=== PATIENT | female | born 2000 | race Hispanic/Latino ===

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

== ENCOUNTER 2019-06-11 21:00 | Inpatient (IN) | payer MEDICAID ==
--- NOTE | 2019-06-11 21:07 | Event Note ---
ED Screening Note Date of service: 06/11/19 Time: 21:04 ED Screening Note: This is a 18 y.o. F. that presents to the ER with nausea and weakness for 2 days. Patient friend is here with her because she is AMS. Patient friend reports several tremors today that appeared to be seizures. States patient broke her tooth with the one prior to arrival. He is unsure of patient PMH. This initial assessment/diagnostic orders/clinical plan/treatment(s) is/are subject to change based on patients health status, clinical progression and re- assessment by fellow clinical providers in the ED. Further treatment and workup at subsequent clinical providers discretion. Patient/guardian urged not to elope from the ED as their condition may be serious if not clinically assessed and managed. Initial orders include: Labs and CT of head/brain
[2019-06-11] MEDS ORDERED: SODIUM CHLORIDE 0.9% 1000 ML 1,000 ML IV ONE (21:21)
[2019-06-11] MEDS ORDERED: LORazepam 2 MG/ML VIAL ONE (21:25)
[2019-06-11] MEDS ORDERED: LORazepam 2 MG/ML VIAL IV ONE (21:27)
[2019-06-11] MEDS ORDERED: levETIRAcetam 1000 MG/NS 0.75% 1,000 MG/100 ML BAG IV ONE (21:28)
--- NOTE | 2019-06-11 21:36 | Emergency Department Report ---
<LEIGH NIEVES - Last Filed: 06/12/19 02:13> ED General Adult HPI - General Chief complaint: Altered Mental Status Stated complaint: VOMITING, SHAKING Time Seen by Provider: 06/11/19 21:03 - Related Data Previous Rx's Medication Instructions Recorded Last Taken Type Dicyclomine [Bentyl] 10 mg PO BID PRN #14 capsule 09/20/18 Unknown Rx Ondansetron [Zofran ODT TAB] 4 mg PO Q8HR #15 tab.rapdis 11/13/18 Unknown Rx raNITIdine HCl [Zantac] 150 mg PO BID #14 tablet 11/13/18 Unknown Rx Metoclopramide [Reglan] 10 mg PO QID PRN #30 tablet 06/11/19 Unknown Rx Promethazine [Phenergan SUPPOS] 50 mg MD Q6H PRN #15 supp.rect 06/11/19 Unknown Rx levETIRAcetam [Keppra TAB] 500 mg PO BID #60 tablet 06/11/19 Unknown Rx Nitrofurantoin [place]/M-Cryst 100 mg PO Q12HR #13 capsule 06/12/19 Unknown Rx [Macrobid CAP] Allergies Allergy/AdvReac Type Severity Reaction Status Date / Time No Known Allergies Allergy Unverified 01/27/16 14:12 ED Past Medical Hx - Medications Home Medications: Home Medications Medication Instructions Recorded Confirmed Last Taken Type Dicyclomine [Bentyl] 10 mg PO BID PRN #14 capsule 09/20/18 Unknown Rx Ondansetron [Zofran ODT TAB] 4 mg PO Q8HR #15 tab.rapdis 11/13/18 Unknown Rx raNITIdine HCl [Zantac] 150 mg PO BID #14 tablet 11/13/18 Unknown Rx Metoclopramide [Reglan] 10 mg PO QID PRN #30 tablet 06/11/19 Unknown Rx Promethazine [Phenergan SUPPOS] 50 mg MD Q6H PRN #15 supp.rect 06/11/19 Unknown Rx levETIRAcetam [Keppra TAB] 500 mg PO BID #60 tablet 06/11/19 Unknown Rx Nitrofurantoin [place]/M-Cryst 100 mg PO Q12HR #13 capsule 06/12/19 Unknown Rx [Macrobid CAP] ED Medical Decision Making - Lab Data Result diagrams: 06/12/19 01:54 06/11/19 22:55 - Radiology Data Radiology results: report reviewed CT head/brain wo con INDICATION / CLINICAL INFORMATION: 18 years Female; AMS. TECHNIQUE: Routine CT head without contrast. All CT scans at this location are performed using CT dose reduction for ALARA by means of automated exposure control. COMPARISON: 09/29/2018 FINDINGS: BRAIN / INTRACRANIAL CONTENTS: No acute hemorrhage, mass effect, midline shift, hydrocephalus, or acute, large territorial infarct. No chronic infarct or atrophy appreciated. No significant white matter abnormality. CRANIOCERVICAL JUNCTION: No significant abnormality. ORBITS: No significant abnormality of visualized orbits. SINUSES / MASTOIDS: Minimal mucosal thickening seen in the ethmoids and right frontal sinus. ADDITIONAL FINDINGS: None. IMPRESSION: 1. No focal mass, hemorrhage, hydrocephalus, or acute, large territorial infarct. CT ABDOMEN AND PELVIS WITHOUT CONTRAST INDICATION: Generalized abdominal pain, nausea and vomiting. TECHNICAL: Multiple axial CT images of the abdomen and pelvis were acquired without intravenous contrast. Sagittal and coronal reforma ts were obtained. All CTs at this facility utilize dose reduction techniques including automated exposure control, iterative reconstruction and weight based dosing when appropriate to reduce patient radiation dose to as low as reasonable achievable. COMPARISON: CT of the abdomen and pelvis, 11/13/2018 FINDINGS: Limited imaging of the bilateral lung bases demonstrates no evidence of acute abnormality. Abdomen: The liver, spleen, pancreas, bilateral adrenal glands and bilateral kidneys show no evidence of acute abnormality. There is moderate distention of the stomach with food contents. There is no evidence of bowel obstruction or free fluid. The appendix is visualized and appears normal. Pelvis : No free fluid is seen within the pelvis. An IUD is present. There is a 2.8 cm right adnexal cyst. The urinary bladder appears normal. Bones and Soft Tissues: Evaluation of bony structures demonstrates no evidence of acute bony abnormality. Soft tissue structures appear grossly normal. IMPRESSION: 1. No evidence of acute inflammatory process within the abdomen or pelvis. 2. Additional findings as above. - Medical Decision Making Despite aggressive IV hydration and repeat Ativan doses patient remains tachycardic in the ED also having intermittent dry heaves. Due to persistent tachycardia, leukocytosis, and UTI as well as continued nausea patient will be admitted to the hospital for further ED treatment. IV doses of zofran ordered. UDS ordered to rule out other drug usage besides marijuana. Hospitalist was informed of admission. I ED Disposition Clinical Impression: Marijuana dependence, Cyclic vomiting syndrome, Tachycardia Nausea & vomiting Qualifiers: Vomiting type: unspecified Vomiting Intractability: unspecified Qualified Code(s): R11.2 - Nausea with vomiting, unspecified Abdominal pain Qualifiers: Abdominal location: unspecified location Qualified Code(s): R10.9 - Unspecified abdominal pain Convulsion Qualifiers: Convulsion type: unspecified Qualified Code(s): R56.9 - Unspecified convulsions Disposition: DC-07 LEFT AGAINST MED ADVICE Is pt being admited?: Yes Condition: Undetermined Time of Disposition: 02:15 (Dr Hooper/hosp) <JOANNE ALVES - Last Filed: 06/12/19 18:09> ED General Adult HPI - General Source: patient, RN notes reviewed, old records reviewed Mode of arrival: Ambulatory Limitations: No Limitations - History of Present Illness Initial comments: This is a 18-year-old female. I have evaluated this patient in the past. Her past medical history includes cannabis use, cyclic vomiting syndrome versus cannabinoid hyperemesis syndrome. I saw the patient in October 2018 with recurrent abdominal pain, nausea and vomiting Today, the patient presents with her typical constellation of symptoms, including diffuse abdominal cramping, nausea vomiting, intervals of activity. The patient states that she she is not sure if she is . She admits to chronic cannabis consumption. She lives by herself, and apparently had possible convulsive event today, where she chipped her tooth. There is no midline neck pain. She does not indicate that she is having abdominal pain at this time. She indicates her symptoms are intermittent, did not radiate anywhere, and she is not sure if they have exacerbating or relieving factors. At the moment, she is not motivated to discontinue cannabis consumption. -: week(s), month(s) Location: head, abdomen Quality: other Consistency: other Improves with: other Worsens with: other ED Review of Systems ROS: Stated complaint: VOMITING, SHAKING Other details as noted in HPI Constitutional: malaise Eyes: denies: eye discharge ENT: denies: congestion Respiratory: denies: other Cardiovascular: denies: edema Gastrointestinal: abdominal pain, nausea, vomiting Musculoskeletal: myalgia Neurological: weakness Psychiatric: anxiety ED Past Medical Hx - Past Medical History Hx Seizures: Yes (patient states she has nonepileptic seizures) Hx Asthma: Yes - Social History Smoking Status: Never Smoker Substance Use Type: None ED Physical Exam - General Limitations: Other (patient initially not responsive, may have had a convulsive event. Shortly thereafter, awake, alert, oriented, and sober.) General appearance: alert, in no apparent distress - Head Head exam: Present: atraumatic, normocephalic - Eye Eye exam: Present: normal appearance, PERRL, EOMI, other (visual acuity intact to finger counting, color perception, reading at a close distance). Absent: nystagmus - ENT ENT exam: Present: normal exam, mucous membranes moist, normal external ear exam - Neck Neck exam: Present: normal inspection, full ROM. Absent: tenderness, meningismus - Respiratory Respiratory exam: Present: decreased breath sounds. Absent: respiratory distr ess, wheezes, rales, rhonchi, stridor - Cardiovascular Cardiovascular Exam: Present: normal rhythm, tachycardia, normal heart sounds. Absent: systolic murmur, diastolic murmur, rubs, gallop - GI/Abdominal GI/Abdominal exam: Present: soft. Absent: distended, tenderness, guarding, rebound, rigid, pulsatile mass - Extremities Exam Extremities exam: Present: normal inspection, full ROM, other (2+ pulses noted in the bilateral upper, lower extremities. There is no long bone tenderness. Musculoskeletal compartments are soft. The pelvis is stable.). Absent: pedal edema, calf tenderness - Back Exam Back exam: Present: normal inspection, full ROM. Absent: tenderness, CVA tenderness (R), CVA tenderness (L), paraspinal tenderness, vertebral tenderness - Neurological Exam Neurological exam: Present: alert, oriented X3, other (there is no facial droop. The tongue is midline. Extraocular movements are intact bilaterally. Patient speaking in full complete sentences. Shoulder shrug is intact bilaterally. Hearing is grossly intact bilaterally. Visual acuity intact to finger counting and color perception at a close distance. 5/5 strength 4 extremities. Sensation intact to light touch in 4 extremities.). Absent: motor sensory deficit - Psychiatric Psychiatric exam: Present: anxious - Skin Skin exam: Present: warm, dry, intact, normal color. Absent: rash ED Course Vital Signs 06/11/19 06/11/19 06/11/19 21:09 22:39 22:40 Temperature 98.2 F Pulse Rate 111 H 84 97 H Respiratory 20 33 H 26 H Rate Blood Pressure 164/118 85/38 O2 Sat by Pulse 100 94 92 Oximetry 06/11/19 06/11/19 06/11/19 22:42 22:44 22:46 Temperature Pulse Rate 95 H 95 H 94 H Respiratory 16 17 17 Rate Blood Pressure 85/38 91/41 91/41 O2 Sat by Pulse 95 94 93 Oximetry 06/11/19 06/11/19 06/11/19 22:48 22:50 22:52 Temperature Pulse Rate 96 H 97 H 97 H Respiratory 17 17 17 Rate Blood Pressure 91/41 91/41 91/41 O2 Sat by Pulse 95 94 95 Oximetry 06/11/19 06/11/19 06/11/19 22:54 22:56 22:58 Temperature Pulse Rate 98 H 107 H 109 H Respiratory 19 16 30 H Rate Blood Pressure 91/41 91/41 91/41 O2 Sat by Pulse 96 94 95 Oximetry 06/11/19 06/11/19 06/11/19 23:00 23:02 23:04 Temperature Pulse Rate 109 H 106 H 103 H Respiratory 21 20 24 Rate Blood Pressure 91/41 91/41 148/102 O2 Sat by Pulse 100 100 100 Oximetry 06/11/19 06/11/19 06/11/19 23:06 23:08 23:10 Temperature Pulse Rate 107 H 117 H 124 H Respiratory 18 20 27 H Rate Blood Pressure 85/38 85/38 85/38 O2 Sat by Pulse 100 100 94 Oximetry 06/11/19 06/11/19 06/11/19 23:12 23:14 23:16 Temperature Pulse Rate 111 H 105 H 126 H Respiratory 16 28 H 26 H Rate Blood Pressure 85/38 85/38 176/104 O2 Sat by Pulse 96 94 98 Oximetry 06/11/19 06/11/19 06/12/19 23:52 23:54 00:00 Temperature Pulse Rate 112 H 113 H 106 H Respiratory 22 22 Rate Blood Pressure 176/104 176/104 149/108 O2 Sat by Pulse 96 96 Oximetry 06/12/19 06/12/19 06/12/19 00:15 00:30 00:45 Temperature Pulse Rate 119 H 105 H 118 H Respiratory 14 15 25 H Rate Blood Pressure 156/114 173/125 166/123 O2 Sat by Pulse 98 99 95 Oximetry 06/12/19 06/12/19 06/12/19 01:00 01:16 01:30 Temperature Pulse Rate 108 H 113 H 113 H Respiratory 21 24 22 Rate Blood Pressure 138/101 138/101 172/127 O2 Sat by Pulse 97 83 L Oximetry 06/12/19 06/12/19 06/12/19 01:45 02:00 02:15 Temperature Pulse Rate 117 H 108 H 108 H Respiratory 22 23 22 Rate Blood Pressure 133/80 173/126 155/111 O2 Sat by Pulse Oximetry 06/12/19 06/12/19 06/12/19 02:27 02:30 02:45 Temperature 99.4 F Pulse Rate 111 H 105 H 105 H Respiratory 20 20 15 Rate Blood Pressure 151/106 108/58 O2 Sat by Pulse 98 99 94 Oximetry 06/12/19 06/12/19 06/12/19 03:00 03:15 03:30 Temperature Pulse Rate 107 H 104 H 108 H Respiratory 17 17 16 Rate Blood Pressure 115/62 119/65 118/59 O2 Sat by Pulse 93 96 96 Oximetry 06/12/19 06/12/19 03:45 04:00 Temperature Pulse Rate 108 H 107 H Respiratory 19 18 Rate Blood Pressure 113/57 123/57 O2 Sat by Pulse 96 94 Oximetry - Reevaluation(s) Reevaluation #1: 06/11/19 22:00 Differential diagnosis, including not limited to: Seizure, pseudoseizure, dehydration, intracranial lesion, electrolyte derangement, stress reaction, cannabinoid hyperemesis syndrome, cyclic vomiting syndrome Assessment and plan: 18-year-old female with recurrent presentation of abdominal pain, nausea and vomiting and convulsive event. She is tachycardic and hyper tensive at this time. She states she has not delivered or given within the past 6 weeks. This is similar to patient's prior presentations. Leukocytosis is reviewed and appreciated, this is likely a stress reaction. Anion gap likely secondary to convulsive event, nausea and vomiting, hyperv entilation. We will treat her symptoms, give IV fluids, Ativan, obtain CT scan brain, CT scan abdomen pelvis, and reassess. I again counseled the patient to discontinue cannabis consumption. Reevaluation #2: 06/11/19 23:33 No seizures noted. Patient quite anxious. Required multiple doses of Ativan. CT scan brain, abdomen pelvis pending at this time. Repeat basic metabolic panel pending at this time. care will be transferred to Dr Kieran Nieves to follow up on ct head, abd pelvis, repeat bmp and final disposition Reevaluation #3: 06/11/19 23:56 CT scan interpretations pending at this time. Tachycardia improving, rate 10 6 bpm. Repeat basic metabolic panel is reviewed and appreciated. Anion gap is improved, CO2 is improved. However, CO2 not normalize, patient quite anxious and tachypneic, decreased serum CO2 likely secondary to tachypnea secondary to anxiety required additional ativan 06/12/19 00:08 will give additional fluids, ativan for anxiety every time janeth evaluted the patient she has been hypertensive bp appreciated in the chart suspect error ED Medical Decision Making - Lab Data Result diagrams: 06/12/19 05:15 06/12/19 05:15 Vital Signs 06/11/19 21:09 Temperature 98.2 F Pulse Rate 111 H Respiratory 20 Rate Blood Pressure 164/118 O2 Sat by Pulse 100 Oximetry Lab Results 06/11/19 06/11/19 06/11/19 Range/Units 21:27 21:27 21:30 WBC 21.8 H (4.5-11.0) K/mm3 RBC 4.90 (3.65-5.03) M/mm3 Hgb 13.9 (10.1-14.3) gm/dl Hct 42.7 (30.3-42.9) % MCV 87 (79-97) fl MCH 28 (28-32) pg MCHC 33 (30-34) % RDW 14.6 (13.2-15.2) % Plt Count 358 (140-440) K/mm3 PT 13.5 (12.2-14.9) Sec. INR 1.04 (0.87-1.13) APTT 22.2 L (24.2-36.6) Sec. Sodium 132 L (137-145) mmol/L Potassium 3.7 (3.6-5.0) mmol/L Chloride 93.5 L (98-107) mmol/L Carbon Dioxide 14 L (22-30) mmol/L Anion Gap 28 mmol/L BUN 10 (7-17) mg/dL Creatinine 0.8 (0.7-1.2) mg/dL Estimated GFR > 60 ml/min BUN/Creatinine Ratio 13 % Glucose 132 H (65-100) mg/dL POC Glucose (70-105) Calcium 10.0 (8.4-10.2) mg/dL Total Bilirubin 0.30 (0.1-1.2) mg/dL AST 41 H (5-40) units/L ALT 29 (7-56) units/L Alkaline Phosphatase 84 (35-129) units/L Total Protein 8.5 H (6.3-8.2) g/dL Albumin 4.5 (3.9-5) g/dL Albumin/Globulin Ratio 1.1 % 06/11/19 Range/Units 21:38 WBC (4.5-11.0) K/mm3 RBC (3.65-5.03) M/mm3 Hgb (10.1-14.3) gm/dl Hct (30.3-42.9) % MCV (79-97) fl MCH (28-32) pg MCHC (30-34) % RDW (13.2-15.2) % Plt Count (140-440) K/mm3 PT (12.2-14.9) Sec. INR (0.87-1.13) APTT (24.2-36.6) Sec. Sodium (137-145) mmol/L Potassium (3.6-5.0) mmol/L Chloride (98-107) mmol/L Carbon Dioxide (22-30) mmol/L Anion Gap mmol/L BUN (7-17) mg/dL Creatinine (0.7-1.2) mg/dL Estimated GFR ml/min BUN/Creatinine Ratio % Glucose (65-100) mg/dL POC Glucose 121 H (70-105) Calcium (8.4-10.2) mg/dL Total Bilirubin (0.1-1.2) mg/dL AST (5-40) units/L ALT (7-56) units/L Alkaline Phosphatase (35-129) units/L Total Protein (6.3-8.2) g/dL Albumin (3.9-5) g/dL Albumin/Globulin Ratio % - EKG Data -: EKG Interpreted by Ga - EKG Data 06/11/19 22:02 The EKG today shows a sinus tachycardia, high left ventricular voltage, motion artifact, normal axis, rate 103 bpm, the EKG is not consistent with ST elevation myocardial infarction. It is unchanged from prior EKG from October 2018. - Radiology Data Radiology results: pending Critical care attestation.: If time is entered above; I have spent that time in minutes in the direct care of this critically ill patient, excluding procedure time. ED Disposition Does the pt Need Aspirin: No
[2019-06-11 21:38] LABS: Hematocrit 42.7 % (30.3-42.9); Hemoglobin 13.9 gm/dl (10.1-14.3); Mean Corpuscular HGB Conc 33 % (30-34); Mean Corpuscular Volume 87 fl (79-97); Platelet Count 358 K/mm3 (140-440); Red Cell Distribution Width 14.6 % (13.2-15.2)
[2019-06-11 21:52] LABS: Alanine Aminotransferase 29 units/L (7-56); Albumin 4.5 g/dL (3.9-5); BUN/Creatinine Ratio 13; Blood Urea Nitrogen 10 mg/dL (7-17); Hemolysis Index 21
[2019-06-11] MEDS ORDERED: LORazepam 2 MG/ML VIAL IV STA (21:55)
[2019-06-11 22:00] LABS: INR 1.04 (0.87-1.13)
[2019-06-11] MEDS ORDERED: D5W/0.45% NACL 1,000 ML IV SCH (22:00)
[2019-06-11 22:01] LABS: Partial Thromboplastin Time 22.2 Sec. (24.2-36.6)
[2019-06-11 22:48] LABS: Bacteria,Urine 1+ /HPF (Negative); Bilirubin,Urine NEG (Negative); Blood,Urine NEG (Negative); Color,Urine Amber (Yellow); Mucus,Urine 2+ /HPF; Urobilinogen,Urine < 2.0 mg/dL (<2.0)
[2019-06-11 22:49] LABS: HCG Qualitative,Urine Negative (Negative)
[2019-06-11 23:42] LABS: BUN/Creatinine Ratio 13; Blood Urea Nitrogen 9 mg/dL (7-17); Calcium 8.1 mg/dL (8.4-10.2); Hemolysis Index 43
--- NOTE | 2019-06-12 00:03 | Cat Scan Report ---
CT head/brain wo con INDICATION / CLINICAL INFORMATION: 18 years Female; AMS. TECHNIQUE: Routine CT head without contrast. All CT scans at this location are performed using CT dos e reduction for ALARA by means of automated exposure control. COMPARISON: 09/29/2018 FINDINGS: BRAIN / INTRACRANIAL CONTENTS: No acute hemorrhage, mass effect, midline shift, hydrocephalus, or acu te, large territorial infarct. No chronic infarct or atrophy appreciated. No significant white matter abnormality. CRANIOCERVICAL JUNCTION: No significant abnormality. ORBITS: No significant abnormality of visualized orbits. SINUSES / MASTOIDS: Minimal mucosal thickening seen in the ethmoids and right frontal sinus. ADDITIONAL FINDINGS: None. IMPRESSION: 1. No focal mass, hemorrhage, hydrocephalus, or acute, large territorial infarct. Signer Name: Timoteo Chang MD, III Signed: 06/11/2019 11:58 PM Workstation Name: [id number]
[2019-06-12] MEDS ORDERED: NITROFURANTOIN MONOHYD/M-CRYST 100 MG CAP PO ONE (00:06)
[2019-06-12] MEDS ORDERED: LORazepam 2 MG/ML VIAL IV STA (00:06)
[2019-06-12] MEDS ORDERED: SODIUM CHLORIDE 0.9% 1000 ML 2,000 ML IV ONE (00:06)
--- NOTE | 2019-06-12 00:08 | Cat Scan Report ---
CT ABDOMEN AND PELVIS WITHOUT CONTRAST INDICATION: Generalized abdominal pain, nausea and vomiting. TECHNICAL: Multiple axial CT images of the abdomen and pelvis were acquired without intravenous contr ast. Sagittal and coronal reformats were obtained. All CTs at this facility utilize dose reduction techniques including automated exposure control, iterative reconstruction and weight based dosing whe n appropriate to reduce patient radiation dose to as low as reasonable achievable. COMPARISON: CT of the abdomen and pelvis, 11/13/2018 FINDINGS: Limited imaging of the bilateral lung bases demonstrates no evidence of acute abnormality. Abdomen: The liver, spleen, pancreas, bilateral adrenal glands and bilateral kidneys show no evidence of acute abnormality. There is moderate distention of the stomach with food contents. There is no ev idence of bowel obstruction or free fluid. The appendix is visualized and appears normal. Pelvis: No free fluid is seen within the pelvis. An IUD is present. There is a 2.8 cm right adnexal c yst. The urinary bladder appears normal. Bones and Soft Tissues: Evaluation of bony structures demonstrates no evidence of acute bony abnorma lity. Soft tissue structures appear grossly normal. IMPRESSION: 1. No evidence of acute inflammatory process within the abdomen or pelvis. 2. Additional findings as above. Signer Name: Phylicia Nation MD Signed: 06/12/2019 12:03 AM Workstation Name: [id number]
[2019-06-12 02:07] LABS: Hematocrit 39.6 % (30.3-42.9); Mean Corpuscular HGB Conc 33 % (30-34); Mean Corpuscular Volume 86 fl (79-97); Platelet Count 314 K/mm3 (140-440); Red Blood Count 4.63 M/mm3 (3.65-5.03); Red Cell Distribution Width 14.3 % (13.2-15.2)
[2019-06-12] MEDS ORDERED: ONDANSETRON 4 MG/2 ML INJ IV ONE (02:14)
[2019-06-12 02:30] LABS: BUN/Creatinine Ratio 12; Blood Urea Nitrogen 7 mg/dL (7-17); Calcium 8.5 mg/dL (8.4-10.2); Hemolysis Index 25
[2019-06-12] MEDS ORDERED: ACETAMINOPHEN 325 MG TAB PO PRN (02:54)
[2019-06-12] MEDS ORDERED: ONDANSETRON 4 MG/2 ML INJ IV PRN (02:54)
[2019-06-12] MEDS ORDERED: METOCLOPRAMIDE 10 MG/2 ML INJ IV PRN (02:54)
--- NOTE | 2019-06-12 02:58 | History and Physical Report ---
History of Present Illness Date of examination: 06/12/19 History of present illness: Patient is sedated, status post IV Ativan in the emergency room, unable to obtain a history. This is a 18-year-old woman was brought to the emergency room for abdominal pain, nausea and vomiting. History is per the chart, review of sy stems is unobtainable. Patient has similar presentation in September PAST MEDICAL HISTORY asthma PAST SURGICAL HISTORY: Unknown SOCIAL HISTORY: Marijuana use FAMILY HISTORY: Unknown Medications and Allergies Allergies Allergy/AdvReac Type Severity Reaction Status Date / Time No Known Allergies Allergy Unverified 01/27/16 14:12 Home Medications Medication Instructions Recorded Confirmed Last Taken Type Dicyclomine [Bentyl] 10 mg PO BID PRN #14 capsule 09/20/18 Unknown Rx Ondansetron [Zofran ODT TAB] 4 mg PO Q8HR #15 tab.rapdis 11/13/18 Unknown Rx raNITIdine HCl [Zantac] 150 mg PO BID #14 tablet 11/13/18 Unknown Rx Metoclopramide [Reglan] 10 mg PO QID PRN #30 tablet 06/11/19 Unknown Rx Promethazine [Phenergan SUPPOS] 50 mg SC Q6H PRN #15 supp.rect 06/11/19 Unknown Rx levETIRAcetam [Keppra TAB] 500 mg PO BID #60 tablet 06/11/19 Unknown Rx Nitrofurantoin [place]/M-Cryst 100 mg PO Q12HR #13 capsule 06/12/19 Unknown Rx [Macrobid CAP] Active Meds: Active Medications Acetaminophen (Tylenol) 650 mg PO Q4H PRN PRN Reason: Pain MILD(1-3)/Fever >100.5/CANDLEARIO Enoxaparin Sodium (Enoxaparin) 30 mg SUB-Q QDAY BRITTANY Dextrose/Sodium Chloride (D5/0.45ns) 1,000 mls @ 0 mls/hr IV DIRECT BRITTANY Last Admin: 06/11/19 22:45 Dose: 999 mls/hr Documented by: Sodium Chloride (Nacl 0.9% 1000 Ml) 1,000 mls @ 150 mls/hr IV DIRECT BRITTANY Ceftriaxone Sodium (Rocephin/Ns 1 Gm/50 Ml) 1 gm in 50 mls @ 100 mls/hr IV Q24HR BRITTANY; Protocol Metoclopramide HCl (Reglan) 10 mg IV Q6H PRN PRN Reason: Nausea And Vomiting Ondansetron HCl (Zofran) 4 mg IV Q4H PRN PRN Reason: Nausea And Vomiting Sodium Chloride (Sodium Chloride Flush Syringe 10 Ml) 10 ml IV BID BRITTANY Sodium Chloride (Sodium Chloride Flush Syringe 10 Ml) 10 ml IV PRN PRN PRN Reason: LINE FLUSH Exam - Physical Exam Narrative exam: Gen. appearance: Patient lying in bed, no apparent distress HEENT: Normocephalic, atraumatic, pupils equally round and reactive to light, unable to do extraocular movement, and no sclericterus,. No JVD or thyromegaly or nodule,neck supple, no carotid bruit ,mucous membranes moist, no exudate or erythema Heart: S1, S2, regular rate and rhythm Lungs: Clear bilaterally, breathing comfortable Abdomen: Positive bowel sounds, soft, nondistended, no organomegaly Extremity:no edema cyanosis, clubbing Skin: no rash, dry, warm Neuro: sedated - Constitutional Vitals: Temp Pulse Resp BP Pulse Ox 99.4 F 111 H 20 155/111 98 06/12/19 02:27 06/12/19 02:27 06/12/19 02:27 06/12/19 02:15 06/12/19 02:27 Results - Labs CBC & Chem 7: 06/12/19 05:15 06/12/19 05:15 Labs: Abnormal lab results 06/11/19 06/11/19 06/11/19 Range/Units 21:27 21:27 21:30 WBC 21.8 H (4.5-11.0) K/mm3 APTT 22.2 L (24.2-36.6) Sec. Sodium 132 L (137-145) mmol/L Chloride 93.5 L (98-107) mmol/L Carbon Dioxide 14 L (22-30) mmol/L Creatinine (0.7-1.2) mg/dL Glucose 132 H (65-100) mg/dL POC Glucose (70-105) Calcium (8.4-10.2) mg/dL AST 41 H (5-40) units/L Total Protein 8.5 H (6.3-8.2) g/dL Urine WBC (Auto) (0.0-6.0) /HPF Salicylates (2.8-20.0) mg/dL Acetaminophen (10.0-30.0) ug/mL 06/11/19 06/11/19 06/11/19 Range/Units 21:30 21:30 21:38 WBC (4.5-11.0) K/mm3 APTT (24.2-36.6) Sec. Sodium (137-145) mmol/L Chloride (98-107) mmol/L Carbon Dioxide (22-30) mmol/L Creatinine (0.7-1.2) mg/dL Glucose (65-100) mg/dL POC Glucose 121 H (70-105) Calcium (8.4-10.2) mg/dL AST (5-40) units/L Total Protein (6.3-8.2) g/dL Urine WBC (Auto) (0.0-6.0) /HPF Salicylates 0.6 L (2.8-20.0) mg/dL Acetaminophen < 5.0 L (10.0-30.0) ug/mL 06/11/19 06/11/19 06/12/19 Range/Units 22:13 22:55 01:54 WBC 19.4 H (4.5-11.0) K/mm3 APTT (24.2-36.6) Sec. Sodium 130 L (137-145) mmol/L Chloride (98-107) mmol/L Carbon Dioxide 16 L (22-30) mmol/L Creatinine (0.7-1.2) mg/dL Glucose 307 H (65-100) mg/dL POC Glucose (70-105) Calcium 8.1 L D (8.4-10.2) mg/dL AST (5-40) units/L Total Protein (6.3-8.2) g/dL Urine WBC (Auto) 29.0 H (0.0-6.0) /HPF Salicylates (2.8-20.0) mg/dL Acetaminophen (10.0-30.0) ug/mL 06/12/19 Range/Units 01:54 WBC (4.5-11.0) K/mm3 APTT (24.2-36.6) Sec. Sodium (137-145) mmol/L Chloride (98-107) mmol/L Carbon Dioxide 19 L (22-30) mmol/L Creatinine 0.6 L (0.7-1.2) mg/dL Glucose (65-100) mg/dL POC Glucose (70-105) Calcium (8.4-10.2) mg/dL AST (5-40) units/L Total Protein (6.3-8.2) g/dL Urine WBC (Auto) (0.0-6.0) /HPF Salicylates (2.8-20.0) mg/dL Acetaminophen (10.0-30.0) ug/mL - Imaging and Cardiology CT scan - abdomen: report reviewed CT scan - pelvis: report reviewed Assessment and Plan Assessment Intractable nausea vomiting Abdominal pain, nonspecific Leukocytosis Marijuana use Plan Admit to medicine Start IV fluid, emperic Antibiotics DVT prophylaxis
[2019-06-12] MEDS ORDERED: cefTRIAXone/NS 1 GM/50 ML 1 GM/50 ML BAG IV SCH (03:00)
[2019-06-12 03:39] LABS: Amphetamine Screen,Urine PRESUMPTIVE NEGATIVE; Benzodiazepines Screen,Urine PRESUMPTIVE NEGATIVE; Cocaine Screen,Urine PRESUMPTIVE NEGATIVE; Methadone Screen,Urine PRESUMPTIVE NEGATIVE; Opiate Screen,Urine PRESUMPTIVE NEGATIVE
[2019-06-12 04:23] LABS: Cannabinoid Screen,Urine PRESUMPTIVE POSITIVE
[2019-06-12] MEDS: SODIUM CHLORIDE 0.9% 1000 ML 1,000 ML IV SCH ×2 (04:48→13:01)
[2019-06-12 05:49] LABS: Basophils # (Auto) 0.1 K/mm3 (0.0-0.1); Basophils % (Auto) 0.3 % (0.0-1.8); Eosinophils % (Auto) 0.1 % (0.0-4.3); Hematocrit 36.1 % (30.3-42.9); Hemoglobin 11.9 gm/dl (10.1-14.3); Lymphocytes # (Auto) 1.8 K/mm3 (1.2-5.4); Lymphocytes % (Auto) 10.7 % (13.4-35.0); Mean Corpuscular HGB Conc 33 % (30-34); Mean Corpuscular Volume 86 fl (79-97); Monocytes # (Auto) 1.8 K/mm3 (0.0-0.8); Monocytes % (Auto) 10.4 % (0.0-7.3); Platelet Count 289 K/mm3 (140-440); Red Blood Count 4.22 M/mm3 (3.65-5.03); Red Cell Distribution Width 14.8 % (13.2-15.2)
[2019-06-12 06:21] LABS: BUN/Creatinine Ratio 12; Blood Urea Nitrogen 7 mg/dL (7-17); Calcium 8.7 mg/dL (8.4-10.2); Hemolysis Index 8
[2019-06-12] MEDS ORDERED: ENOXAPARIN 40 MG/0.4 ML INJ SUB-Q SCH (10:00)
[2019-06-12] MEDS ORDERED: ENOXAPARIN 30 MG/0.3 ML INJ SUB-Q SCH (10:00)
[2019-06-12 12:36] VITALS: BP 127/78
--- NOTE | 2019-06-12 14:00 | Event Note ---
Date: 06/12/19 Patient with UTI, repeated nausea and vomiting. I have seen and examined her. patient states she wants to go home, but I advice against.
== END 2019-06-12 14:12 | disposition left against medical advice (07) | DRG 392 ==
LOC: ED 21:00 → 3A 06-12 02:54
PROVIDERS: ADMIT Internal Medicine; ATTEND Internal Medicine
DX: R11.15 Cyclical vomiting syndrome unrelated to migraine (principal); N39.0 Urinary tract infection, site not specified; F12.20 Cannabis dependence, uncomplicated; J45.909 Unspecified asthma, uncomplicated; Z71.51 Drug abuse counseling and surveillance of drug abuser; Z79.899 Other long term (current) drug therapy
CPT/HCPCS: 36415; 70450; 74176; 80048; 80053; 80307; 80320; 81001; 81025; 82550; 82962; 83036; 83690; 85025; 85027; 85610; 85730; 87076; 87086; 87186; 93005; 93010; G0378; G0480; J0696; J1650; J1953; J2060; J2405; J7030

== ENCOUNTER 2019-07-05 15:11 | Inpatient (IN) | payer MEDICAID ==
[2019-07-05] MEDS ORDERED: ONDANSETRON 4 MG/2 ML INJ ONE ×2 (15:25→19:02)
[2019-07-05] MEDS ORDERED: levETIRAcetam 1000 MG/NS 0.75% 1,000 MG/100 ML BAG IV ONE ×2 (15:25→15:44)
[2019-07-05] MEDS ORDERED: LORazepam 2 MG/ML VIAL ONE ×2 (15:25→19:02)
[2019-07-05] MEDS ORDERED: SODIUM CHLORIDE 0.9% 1000 ML 1,000 ML ONE (15:25)
[2019-07-05] MEDS ORDERED: SODIUM CHLORIDE 0.9% 1000 ML 1,000 ML IV ONE (15:44)
[2019-07-05] MEDS ORDERED: ONDANSETRON 4 MG/2 ML INJ IV ONE ×2 (15:45→18:48)
[2019-07-05] MEDS ORDERED: LORazepam 2 MG/ML VIAL IV ONE ×2 (15:45→18:48)
--- NOTE | 2019-07-05 15:51 | Emergency Department Report ---
ED Seizure HPI - General Chief Complaint: Seizure Stated Complaint: N/V/SEIZURES Time Seen by Provider: 07/05/19 15:34 Source: EMS Mode of arrival: Stretcher Limitations: No Limitations - History of Present Illness Initial Comments: Patient is 18 years old female with history of seizure on. Patient brought to the emergency room via EMS accompanied by a friend. Patient brought for evaluation of multiple episodes of seizures today. Friend has denied any injury. He stated that all the seizure happened while she was in bed. He also stated that she has been vomiting a lot recently. He stated that this is typical for her seizure prodrome. She has been diagnosed with cyclic vomiting before. MD Complaint: seizure -: This morning Description of Episode: loss of consciousness, tonic-clonic movement, post-event confusion Witnessed:: Yes Trauma: No Seizure History: known seizure disorder Place: home Treatments Prior to Arrival: benzodiazepines - Related Data Previous Rx's Medication Instructions Recorded Last Taken Type Dicyclomine [Bentyl] 10 mg PO BID PRN #14 capsule 09/20/18 Unknown Rx Ondansetron [Zofran ODT TAB] 4 mg PO Q8HR #15 tab.rapdis 11/13/18 Unknown Rx raNITIdine HCl [Zantac] 150 mg PO BID #14 tablet 11/13/18 Unknown Rx Metoclopramide [Reglan] 10 mg PO QID PRN #30 tablet 06/11/19 Unknown Rx Promethazine [Phenergan SUPPOS] 50 mg MS Q6H PRN #15 supp.rect 06/11/19 Unknown Rx levETIRAcetam [Keppra TAB] 500 mg PO BID #60 tablet 06/11/19 Unknown Rx Nitrofurantoin [place]/M-Cryst 100 mg PO Q12HR #13 capsule 06/12/19 Unknown Rx [Macrobid CAP] Allergies Allergy/AdvReac Type Severity Reaction Status Date / Time No Known Allergies Allergy Unverified 01/27/16 14:12 ED Review of Systems ROS: Stated complaint: N/V/SEIZURES Other details as noted in HPI Comment: All other systems reviewed and negative Constitutional: denies: chills, fever Respiratory: denies: cough, shortness of breath, SOB with exertion, SOB at rest Cardiovascular: denies: chest pain, palpitations Gastrointestinal: nausea, vomiting. denies: abdominal pain Musculoskeletal: denies: back pain Skin: denies: rash, lesions ED Past Medical Hx - Past Medical History Previous Medical History?: Yes Hx Seizures: Yes (patient states she has nonepileptic seizures) Hx Asthma: Yes - Surgical History Past Surgical History?: No - Social History Smoking Status: Never Smoker Substance Use Type: None - Medications Home Medications: Home Medications Medication Instructions Recorded Confirmed Last Taken Type Dicyclomine [Bentyl] 10 mg PO BID PRN #14 capsule 09/20/18 Unknown Rx Ondansetron [Zofran ODT TAB] 4 mg PO Q8HR #15 tab.rapdis 11/13/18 Unknown Rx raNITIdine HCl [Zantac] 150 mg PO BID #14 tablet 11/13/18 Unknown Rx Metoclopramide [Reglan] 10 mg PO QID PRN #30 tablet 06/11/19 Unknown Rx Promethazine [Phenergan SUPPOS] 50 mg MS Q6H PRN #15 supp.rect 06/11/19 Unknown Rx levETIRAcetam [Keppra TAB] 500 mg PO BID #60 tablet 06/11/19 Unknown Rx Nitrofurantoin [place]/M-Cryst 100 mg PO Q12HR #13 capsule 06/12/19 Unknown Rx [Macrobid CAP] ED Physical Exam - General Limitations: No Limitations General appearance: alert, postictal - Head Head exam: Present: atraumatic, normocephalic, normal inspection - Eye Eye exam: Present: normal appearance - ENT ENT exam: Present: mucous membranes dry - Respiratory Respiratory exam: Present: normal lung sounds bilaterally - Cardiovascular Cardiovascular Exam: Present: regular rate, normal rhythm, normal heart sounds - GI/Abdominal GI/Abdominal exam: Present: soft, normal bowel sounds. Absent: distended, tenderness, guarding, rebound, rigid, mass, bruit, pulsatile mass, hernia ED Course Vital Signs 07/05/19 07/05/19 07/05/19 15:45 16:05 16:16 Temperature 97.8 F Pulse Rate 98 H 98 H Respiratory 17 18 Rate Blood Pressure Blood Pressure 159/106 [Right] O2 Sat by Pulse 95 97 98 Oximetry 07/05/19 07/05/19 07/05/19 16:30 16:45 17:00 Temperature Pulse Rate 104 H 103 H Respiratory 17 18 19 Rate Blood Pressure 136/93 153/95 Blood Pressure [Right] O2 Sat by Pulse 98 96 93 Oximetry 07/05/19 07/05/19 17:15 17:30 Temperature Pulse Rate 99 H Respiratory 15 19 Rate Blood Pressure 157/114 164/116 Blood Pressure [Right] O2 Sat by Pulse 99 94 Oximetry ED Medical Decision Making - Lab Data Result diagrams: 07/05/19 15:48 07/05/19 15:48 - Medical Decision Making Patient is 18 years old female with history of seizure on. Patient brought to the emergency room via EMS accompanied by a friend. Patient brought for evaluation of multiple episodes of seizures today. Friend has denied any injury. He stated that all the seizure happened while she was in bed. He also stated that she has been vomiting a lot recently. He stated that this is typical for her seizure prodrome. She has been diagnosed with cyclic vomiting before. Patient received a total of 6 mg of Ativan. Labs reviewed and is unremarkable except for slightly elevated white blood cells. No further seizure observed in the ER. Patient is still postictal. I discussed the patient is Dr. Giang, handwritten admitted patient to medical service for further management and monitoring Critical care attestation.: If time is entered above; I have spent that time in minutes in the direct care of this critically ill patient, excluding procedure time. ED Disposition Clinical Impression: Dehydration, Cyclic vomiting syndrome, Nausea & vomiting, Marijuana dependence, Seizure Disposition: OP ADMIT IP TO THIS HOSP Is pt being admited?: Yes Condition: Stable
[2019-07-05 16:05] LABS: Hematocrit 41.3 % (30.3-42.9); Hemoglobin 13.7 gm/dl (10.1-14.3); Mean Corpuscular HGB Conc 33 % (30-34); Mean Corpuscular Volume 88 fl (79-97); Platelet Count 298 K/mm3 (140-440); Red Blood Count 4.71 M/mm3 (3.65-5.03); Red Cell Distribution Width 14.5 % (13.2-15.2)
[2019-07-05 16:20] LABS: Alanine Aminotransferase 12 units/L (7-56); Albumin 4.3 g/dL (3.9-5); BUN/Creatinine Ratio 10; Blood Urea Nitrogen 8 mg/dL (7-17); Calcium 9.4 mg/dL (8.4-10.2); Hemolysis Index 28
[2019-07-05 16:36] LABS: Bilirubin,Direct < 0.2 mg/dL (0-0.2)
[2019-07-05 16:58] LABS: Amphetamine Screen,Urine PRESUMPTIVE NEGATIVE; Benzodiazepines Screen,Urine PRESUMPTIVE NEGATIVE; Bilirubin,Urine NEG (Negative); Blood,Urine NEG (Negative); Cocaine Screen,Urine PRESUMPTIVE NEGATIVE; Color,Urine Yellow (Yellow); Methadone Screen,Urine PRESUMPTIVE NEGATIVE; Mucus,Urine 3+ /HPF; Opiate Screen,Urine PRESUMPTIVE NEGATIVE; Urobilinogen,Urine < 2.0 mg/dL (<2.0)
[2019-07-05 17:16] LABS: Cannabinoid Screen,Urine PRESUMPTIVE POSITIVE
[2019-07-05 17:33] LABS: Basophils % (Manual) 0 % (0.0-1.8); Eosinophils % (Manual) 0 % (0.0-4.3); Platelet Estimate Consistent w Auto; RBC Morphology Normal; Total Cells Counted 100
[2019-07-05] MEDS ORDERED: oxyCODONE /ACETAMINOPHEN 5-325MG TAB PO PRN (18:52)
[2019-07-05] MEDS ORDERED: ACETAMINOPHEN 325 MG TAB PO PRN (18:52)
[2019-07-05] MEDS ORDERED: HYDROmorphone 1 MG/1 ML INJ IV PRN (18:52)
[2019-07-05] MEDS ORDERED: ONDANSETRON 4 MG/2 ML INJ IV PRN (18:52)
--- NOTE | 2019-07-05 18:52 | History and Physical Report ---
History of Present Illness Date of examination: 07/05/19 Date of admission: 07/05/19 18:03 Chief complaint: Multiple Seizures since AM History of present illness: Patient is 18 years old female with history of seizure on. Patient brought to the emergency room via EMS accompanied by a friend. Patient brought for evaluation of multiple episodes of seizures today. Friend has denied any injury. He stated that all the seizure happened while she was in bed. He also stated that she has been vomiting a lot recently. He stated that this is typical for her seizure prodrome. She has been diagnosed with cyclic vomiting before. Past Medical History Previous Medical History?: Yes Seizures: Yes (patient states she has nonepileptic seizures) Asthma: Yes Surgical History Past Surgical History?: No Social History Smoking Status: Never Smoker Substance Use Type: None Family History Htn - Medications Home Medications: Home Medications Medication Instructions Recorded Confirmed Last Taken Type Dicyclomine [Bentyl] 10 mg PO BID PRN #14 capsule 09/20/18 Unknown Rx Ondansetron [Zofran ODT TAB] 4 mg PO Q8HR #15 tab.rapdis 11/13/18 Unknown Rx raNITIdine HCl [Zantac] 150 mg PO BID #14 tablet 11/13/18 Unknown Rx Metoclopramide [Reglan] 10 mg PO QID PRN #30 tablet 06/11/19 Unknown Rx Promethazine [Phenergan SUPPOS] 50 mg ID Q6H PRN #15 supp.rect 06/11/19 Unknown Rx levETIRAcetam [Keppra TAB] 500 mg PO BID #60 tablet 06/11/19 Unknown Rx Nitrofurantoin [place]/M-Cryst 100 mg PO Q12HR #13 capsule 06/12/19 Unknown Rx [Macrobid CAP] Review of Systems ROS: Stated complaint: N/V/SEIZURES Other details as noted in HPI Comment: All other systems reviewed and negative Constitutional: denies: chills, fever Respiratory: denies: cough, shortness of breath, SOB with exertion, SOB at rest Cardiovascular: denies: chest pain, palpitations Gastrointestinal: nausea, vomiting. denies: abdominal pain Musculoskeletal: denies: back pain Skin: denies: rash, lesions Medications and Allergies Allergies Allergy/AdvReac Type Severity Reaction Status Date / Time No Known Allergies Allergy Unverified 01/27/16 14:12 Home Medications Medication Instructions Recorded Confirmed Last Taken Type levETIRAcetam [Keppra TAB] 1,000 mg PO QDAY 07/05/19 07/05/19 06/05/19 History Exam - Constitutional Vitals: Temp Pulse Resp BP Pulse Ox 97.8 F 106 H 16 150/97 97 07/05/19 15:45 07/05/19 18:15 07/05/19 18:15 07/05/19 18:30 07/05/19 18:30 General appearance: Present: no acute distress, well-nourished - EENT Eyes: Present: PERRL ENT: hearing intact, clear oral mucosa - Neck Neck: Present: supple, normal ROM - Respiratory Respiratory effort: normal Respiratory: bilateral: CTA - Cardiovascular Heart rate: 78 Rhythm: regular Heart Sounds: Present: S1 & S2. Absent: rub, click - Extremities Extremities: no ischemia, pulses intact, pulses symmetrical, No edema Peripheral Pulses: within normal limits - Abdominal General gastrointestinal: Present: soft, non-tender, non-distended, normal bowel sounds Female genitourinary: Present: normal - Integumentary Integumentary: Present: clear, warm, dry - Musculoskeletal Musculoskeletal: gait normal, strength equal bilaterally - Psychiatric Psychiatric: appropriate mood/affect, intact judgment & insight, cooperative, other (Post ictal) - Neurologic Neurologic: CNII-XII intact, moves all extremities Results - Labs CBC & Chem 7: 07/06/19 04:52 07/06/19 04:52 Labs: Laboratory Last Values WBC 12.7 K/mm3 (4.5-11.0) H 07/05/19 15:48 RBC 4.71 M/mm3 (3.65-5.03) 07/05/19 15:48 Hgb 13.7 gm/dl (10.1-14.3) 07/05/19 15:48 Hct 41.3 % (30.3-42.9) 07/05/19 15:48 MCV 88 fl (79-97) 07/05/19 15:48 MCH 29 pg (28-32) 07/05/19 15:48 MCHC 33 % (30-34) 07/05/19 15:48 RDW 14.5 % (13.2-15.2) 07/05/19 15:48 Plt Count 298 K/mm3 (140-440) 07/05/19 15:48 Add Manual Diff Complete 07/05/19 15:48 Total Counted 100 07/05/19 15:48 Seg Neutrophils % Customer Service Specialist 07/05/19 15:48 Seg Neuts % (Manual) 91.0 % (40.0-70.0) H 07/05/19 15:48 Band Neutrophils % 0 % 07/05/19 15:48 Lymphocytes % (Manual) 6.0 % (13.4-35.0) L 07/05/19 15:48 Reactive Lymphs % (Man) 0 % 07/05/19 15:48 Monocytes % (Manual) 3.0 % (0.0-7.3) 07/05/19 15:48 Eosinophils % (Manual) 0 % (0.0-4.3) 07/05/19 15:48 Basophils % (Manual) 0 % (0.0-1.8) 07/05/19 15:48 Metamyelocytes % 0 % 07/05/19 15:48 Myelocytes % 0 % 07/05/19 15:48 Promyelocytes % 0 % 07/05/19 15:48 Blast Cells % 0 % 07/05/19 15:48 Nucleated RBC % Not Reportable 07/05/19 15:48 Seg Neutrophils # Man 11.6 K/mm3 (1.8-7.7) H 07/05/19 15:48 Band Neutrophils # 0.0 K/mm3 07/05/19 15:48 Lymphocytes # (Manual) 0.8 K/mm3 (1.2-5.4) L 07/05/19 15:48 Abs React Lymphs (Man) 0.0 K/mm3 07/05/19 15:48 Monocytes # (Manual) 0.4 K/mm3 (0.0-0.8) 07/05/19 15:48 Eosinophils # (Manual) 0.0 K/mm3 (0.0-0.4) 07/05/19 15:48 Basophils # (Manual) 0.0 K/mm3 (0.0-0.1) 07/05/19 15:48 Metamyelocytes # 0.0 K/mm3 07/05/19 15:48 Myelocytes # 0.0 K/mm3 07/05/19 15:48 Promyelocytes # 0.0 K/mm3 07/05/19 15:48 Blast Cells # 0.0 K/mm3 07/05/19 15:48 WBC Morphology Not Reportable 07/05/19 15:48 Hypersegmented Neuts Not Reportable 07/05/19 15:48 Hyposegmented Neuts Not Reportable 07/05/19 15:48 Hypogranular Neuts Not Reportable 07/05/19 15:48 Smudge Cells Not Reportable 07/05/19 15:48 Toxic Granulation Not Reportable 07/05/19 15:48 Toxic Vacuolation Not Reportable 07/05/19 15:48 Dohle Bodies Not Reportable 07/05/19 15:48 Pelger-Huet Anomaly Not Reportable 07/05/19 15:48 Silverio Rods Not Reportable 07/05/19 15:48 Platelet Estimate Consistent w auto 07/05/19 15:48 Clumped Platelets Not Reportable 07/05/19 15:48 Plt Clumps, EDTA Not Reportable 07/05/19 15:48 Large Platelets Not Reportable 07/05/19 15:48 Giant Platelets Not Reportable 07/05/19 15:48 Platelet Satelliting Not Reportable 07/05/19 15:48 Plt Morphology Comment Not Reportable 07/05/19 15:48 RBC Morphology Normal 07/05/19 15:48 Dimorphic RBCs Not Reportable 07/05/19 15:48 Polychromasia Not Reportable 07/05/19 15:48 Hypochromasia Not Reportable 07/05/19 15:48 Poikilocytosis Not Reportable 07/05/19 15:48 Anisocytosis Not Reportable 07/05/19 15:48 Microcytosis Not Reportable 07/05/19 15:48 Macrocytosis Not Reportable 07/05/19 15:48 Spherocytes Not Reportable 07/05/19 15:48 Pappenheimer Bodies Not Reportable 07/05/19 15:48 Sickle Cells Not Reportable 07/05/19 15:48 Target Cells Not Reportable 07/05/19 15:48 Tear Drop Cells Not Reportable 07/05/19 15:48 Ovalocytes Not Reportable 07/05/19 15:48 Helmet Cells Not Reportable 07/05/19 15:48 Mcguire-Olivia Bodies Not Reportable 07/05/19 15:48 [place] Rings Not Reportable 07/05/19 15:48 Mclean Cells Not Reportable 07/05/19 15:48 Bite Cells Not Reportable 07/05/19 15:48 Crenated Cell Not Reportable 07/05/19 15:48 Elliptocytes Not Reportable 07/05/19 15:48 Acanthocytes (Spur) Not Reportable 07/05/19 15:48 Rouleaux Not Reportable 07/05/19 15:48 Hemoglobin C Crystals Not Reportable 07/05/19 15:48 Schistocytes Not Reportable 07/05/19 15:48 Malaria parasites Not Reportable 07/05/19 15:48 Cruz Bodies Not Reportable 07/05/19 15:48 Hem Pathologist Commnt No 07/05/19 15:48 Sodium 137 mmol/L (137-145) 07/05/19 15:48 Potassium 3.6 mmol/L (3.6-5.0) 07/05/19 15:48 Chloride 104.2 mmol/L (98-107) 07/05/19 15:48 Carbon Dioxide 18 mmol/L (22-30) L 07/05/19 15:48 Anion Gap 18 mmol/L 07/05/19 15:48 BUN 8 mg/dL (7-17) 07/05/19 15:48 Creatinine 0.8 mg/dL (0.7-1.2) 07/05/19 15:48 Estimated GFR > 60 ml/min 07/05/19 15:48 BUN/Creatinine Ratio 10 % 07/05/19 15:48 Glucose 111 mg/dL (65-100) H 07/05/19 15:48 Calcium 9.4 mg/dL (8.4-10.2) 07/05/19 15:48 Total Bilirubin 0.30 mg/dL (0.1-1.2) 07/05/19 15:48 Direct Bilirubin < 0.2 mg/dL (0-0.2) 07/05/19 15:48 Indirect Bilirubin 0.1 mg/dL 07/05/19 15:48 AST 23 units/L (5-40) 07/05/19 15:48 ALT 12 units/L (7-56) 07/05/19 15:48 Alkaline Phosphatase 71 units/L (35-129) 07/05/19 15:48 Total Protein 7.7 g/dL (6.3-8.2) 07/05/19 15:48 Albumin 4.3 g/dL (3.9-5) 07/05/19 15:48 Albumin/Globulin Ratio 1.3 % 07/05/19 15:48 HCG, Qual Negative (Negative) 07/05/19 16:01 Urine Color Yellow (Yellow) 07/05/19 16:40 Urine Turbidity Cloudy (Clear) 07/05/19 16:40 Urine pH 6.0 (5.0-7.0) 07/05/19 16:40 Ur Specific [place] 1.029 (1.003-1.030) 07/05/19 16:40 Urine Protein 30 mg/dl mg/dL (Negative) 07/05/19 16:40 Urine Glucose (UA) 150 mg/dL (Negative) 07/05/19 16:40 Urine Ketones Tr mg/dL (Negative) 07/05/19 16:40 Urine Blood Neg (Negative) 07/05/19 16:40 Urine Nitrite Neg (Negative) 07/05/19 16:40 Urine Bilirubin Neg (Negative) 07/05/19 16:40 Urine Urobilinogen < 2.0 mg/dL (<2.0) 07/05/19 16:40 Ur Leukocyte Esterase Neg (Negative) 07/05/19 16:40 Urine WBC (Auto) 3.0 /HPF (0.0-6.0) 07/05/19 16:40 Urine RBC (Auto) 5.0 /HPF (0.0-6.0) 07/05/19 16:40 U Epithel Cells (Auto) 3.0 /HPF (0-13.0) 07/05/19 16:40 Urine Mucus 3+ /HPF 07/05/19 16:40 Urine Opiates Screen Presumptive negative 07/05/19 16:40 Urine Methadone Screen Presumptive negative 07/05/19 16:40 Ur Barbiturates Screen Presumptive negative 07/05/19 16:40 Ur Phencyclidine Scrn Presumptive negative 07/05/19 16:40 Ur Amphetamines Screen Presumptive negative 07/05/19 16:40 U Benzodiazepines Scrn Presumptive negative 07/05/19 16:40 Urine Cocaine Screen Presumptive negative 07/05/19 16:40 U Marijuana (THC) Screen Presumptive positive 12/21/19 16:40 Drugs of Abuse Note Disclamer 07/05/19 16:40 Plasma/Serum Alcohol < 0.01 % (0-0.07) 07/05/19 15:48 Assessment and Plan Advance Directives: Yes (Full code) - Patient Problems (1) Status epilepticus Current Visit: Yes Status: Acute Plan to address problem: IV Keppra and PO keppra added Neuro consult (2) GERD (gastroesophageal reflux disease) Current Visit: Yes Status: Chronic Qualifiers: Esophagitis presence: with esophagitis Qualified Code(s): K21.0 - Gastro- esophageal reflux disease with esophagitis Plan to address problem: On Ranitidine (3) Cyclic vomiting syndrome Current Visit: Yes Status: Chronic Plan to address problem: By History Reglan/Zofran prn (4) DVT prophylaxis Current Visit: Yes Status: Acute Plan to address problem: n Heparin
[2019-07-05] MEDS ORDERED: NON-FORMULARY EACH (Levetiracetam [Keppra Tab] 1,000 MG) PO SCH (19:15)
[2019-07-05] MEDS: D5W/0.9% NACL 1,000 ML IV SCH (20:05)
[2019-07-05] MEDS ORDERED: levETIRAcetam 1,000 MG in DEXTROSE 5% IN WATER 100 ML IV ONE (22:00)
[2019-07-05] MEDS ORDERED: levETIRAcetam 1,000 MG in DEXTROSE 5% IN WATER 100 ML IV SCH (22:00)
[2019-07-05] MEDS ORDERED: levETIRAcetam 1000 MG/NS 0.75% 1,000 MG/100 ML BAG IV SCH (22:00)
[2019-07-05] MEDS ORDERED: levETIRAcetam 500 MG TAB PO SCH (22:00)
[2019-07-05] MEDS: FAMOTIDINE 20 MG/2 ML INJ IV SCH (23:20)
[2019-07-06] MEDS: D5W/0.9% NACL 1,000 ML IV SCH (04:37)
[2019-07-06 05:32] LABS: Alanine Aminotransferase 10 units/L (7-56); BUN/Creatinine Ratio 8; Blood Urea Nitrogen 6 mg/dL (7-17); Calcium 9.3 mg/dL (8.4-10.2); Hemolysis Index 10
[2019-07-06 06:10] LABS: Basophils # (Auto) 0.1 K/mm3 (0.0-0.1); Basophils % (Auto) 0.8 % (0.0-1.8); Eosinophils % (Auto) 0.2 % (0.0-4.3); Hematocrit 39.2 % (30.3-42.9); Lymphocytes # (Auto) 2.3 K/mm3 (1.2-5.4); Lymphocytes % (Auto) 19.4 % (13.4-35.0); Mean Corpuscular HGB Conc 33 % (30-34); Mean Corpuscular Volume 86 fl (79-97); Monocytes # (Auto) 1.1 K/mm3 (0.0-0.8); Monocytes % (Auto) 9.1 % (0.0-7.3); Platelet Count 312 K/mm3 (140-440); Red Blood Count 4.54 M/mm3 (3.65-5.03); Red Cell Distribution Width 14.6 % (13.2-15.2)
[2019-07-06] MEDS ORDERED: levETIRAcetam 500 MG TAB PO SCH (10:00)
[2019-07-06] MEDS ORDERED: levETIRAcetam 1,000 MG in DEXTROSE 5% IN WATER 100 ML IV SCH (10:00)
[2019-07-06] MEDS: FAMOTIDINE 20 MG/2 ML INJ IV SCH (10:13)
--- NOTE | 2019-07-06 10:14 | Progress Note ---
Subjective Date of service: 07/06/19 Interval history: cancelled as pt is discharged. - see d/c note Objective - Constitutional Vitals: Vital Signs - 12hr 07/05/19 07/05/19 07/06/19 23:28 23:58 05:35 Temperature 97.5 F L Pulse Rate 85 Respiratory 20 18 18 Rate Blood Pressure 119/69 O2 Sat by Pulse 96 Oximetry - Labs CBC & Chem 7: 07/06/19 04:52 07/06/19 04:52 Labs: Abnormal lab results 07/05/19 07/05/19 07/06/19 Range/Units 15:48 15:48 04:52 WBC 12.7 H 12.1 H (4.5-11.0) K/mm3 [place] % (Auto) 9.1 H (0.0-7.3) % [place] # 1.1 H (0.0-0.8) K/mm3 Seg Neutrophils % 70.5 H (40.0-70.0) % Seg Neuts % (Manual) 91.0 H (40.0-70.0) % Lymphocytes % (Manual) 6.0 L (13.4-35.0) % Seg Neutrophils # 8.5 H (1.8-7.7) K/mm3 Seg Neutrophils # Man 11.6 H (1.8-7.7) K/mm3 Lymphocytes # (Manual) 0.8 L (1.2-5.4) K/mm3 Potassium (3.6-5.0) mmol/L Carbon Dioxide 18 L (22-30) mmol/L BUN (7-17) mg/dL Glucose 111 H (65-100) mg/dL 07/06/19 Range/Units 04:52 WBC (4.5-11.0) K/mm3 [place] % (Auto) (0.0-7.3) % [place] # (0.0-0.8) K/mm3 Seg Neutrophils % (40.0-70.0) % Seg Neuts % (Manual) (40.0-70.0) % Lymphocytes % (Manual) (13.4-35.0) % Seg Neutrophils # (1.8-7.7) K/mm3 Seg Neutrophils # Man (1.8-7.7) K/mm3 Lymphocytes # (Manual) (1.2-5.4) K/mm3 Potassium 3.5 L (3.6-5.0) mmol/L Carbon Dioxide (22-30) mmol/L BUN 6 L (7-17) mg/dL Glucose 120 H (65-100) mg/dL
[2019-07-06] MEDS: POTASSIUM CHLORIDE 10 MEQ 10 MEQ/100 ML BAG IV SCH (10:17)
[2019-07-06] MEDS ORDERED: FLU VACC QUAD 2019-20 (3 YR UP)/PF 60 MCG/0.5 ML SYRINGE IM ONE (12:00)
[2019-07-06] MEDS ORDERED: HEPARIN 5,000 UNIT/1 ML VIAL SUB-Q SCH (12:30)
[2019-07-06 13:01] VITALS: BP 112/57
--- NOTE | 2019-07-06 13:50 | Progress Note ---
Subjective Date of service: 07/06/19 Interval history: interesting that cyclic vomiting disorder can be a form of epilepsy further w[u in progress always good to check prolactin level Objective - Vital Sign Vital Signs - 12hr 07/06/19 07/06/19 05:35 12:08 Temperature 97.5 F L 98.0 F Pulse Rate 85 92 H Respiratory 18 18 Rate Blood Pressure 119/69 112/57 O2 Sat by Pulse 96 94 Oximetry - Laboratory Findings CBC and BMP: 07/06/19 04:52 07/06/19 04:52 Abnormal Lab Findings: Abnormal Labs 07/05/19 07/05/19 07/06/19 15:48 15:48 04:52 WBC 12.7 H 12.1 H [place] % (Auto) 9.1 H [place] # 1.1 H Seg Neutrophils % 70.5 H Seg Neuts % (Manual) 91.0 H Lymphocytes % (Manual) 6.0 L Seg Neutrophils # 8.5 H Seg Neutrophils # Man 11.6 H Lymphocytes # (Manual) 0.8 L Potassium Carbon Dioxide 18 L BUN Glucose 111 H 07/06/19 04:52 WBC [place] % (Auto) [place] # Seg Neutrophils % Seg Neuts % (Manual) Lymphocytes % (Manual) Seg Neutrophils # Seg Neutrophils # Man Lymphocytes # (Manual) Potassium 3.5 L Carbon Dioxide BUN 6 L Glucose 120 H
--- NOTE | 2019-07-06 14:50 | Discharge Summary ---
Providers - Providers Date of Admission: 07/05/19 18:03 Date of discharge: 07/06/19 Attending physician: CHUNG MARTINEZ 07/05/19 18:52 Consult to Physician [CONS] Routine Comment: Consulting Provider: ANTHONY REESE Physician Instructions: Reason For Exam: Seizure disorder Primary care physician: RETORT KILN BURNER Hospitalization Reason for admission: seizure disorder, psychiatric vomiting syndrome, GERD. Condition: Stable Pertinent studies: None Procedures: None Hospital course: Patient is 18 years old female with history of seizure d/o. Patient brought to the emergency room via EMS accompanied by a friend. Patient brought for evaluation of multiple episodes of seizures today. Friend has denied any injury. He stated that all the seizure happened while she was in bed. He also stated that she has been vomiting a lot recently. He stated that this is typical for her seizure prodrome. She has been diagnosed with cyclic vomiting before. On admission the emergency department and was placed on IV Keppra, and IV Ativan to control seizure. Seizure resolved. Hypokalemia identified. Is having headache. Some medication for headache. Posttrauma. Improved. Patient's adjustable chart. Therefore been discharged as milligrams and that she should've no vomiting. She said this started with Keppra 750 mg twice a day and hydrocodone APAP 5-325 mg 1 by mouth 2 times a day when necessary for her headache and potassium supplementation for hypokalemia. Patient able to ambulate. No more seizures Disposition: DC-01 TO HOME OR SELFCARE - Discharge Diagnoses (1) Nausea & vomiting Status: Acute (2) Seizure Status: Acute (3) Status epilepticus Status: Acute Core Measure Documentation - Palliative Care Palliative Care/ Comfort Measures: Not Applicable - Core Measures Any of the following diagnoses?: none Exam - Physical Exam Narrative exam: Constitutional: Well-nourished well-developed. In no distress Head: Normocephalic atraumatic Eyes: Pupils are equal round and reactive to light Nose: No enlarged turbinates, no septal deviation. Mouth: Moist mucous membranes. Neck: Supple no thyromegaly. No bruit. No JVD Heart: Regular rate and rhythm, S1-S2 normal. No rubs murmurs or gallop Lungs: Clear to auscultation bilaterally. no rales or rhonchi Abdomen: Soft, nontender. Bowel sound are present. Extremities: No edema, no cyanosis, no clubbing. Neuro: Alert oriented Oriented x3. No focal sensory or motor deficit. Skin: No rashes or hyperpigmented spots Musculoskeletal system: No joint pain or swelling Hematological: No petechia or subcutanous hemorrhages. Immunological: No multiple septic spots on the skin Lymphatic: No generalized lymphadenopathy Psychiatry: Euthymic. Calm. - Constitutional Vitals: Temp Pulse Resp BP Pulse Ox 98.0 F 92 H 18 112/57 94 07/06/19 12:08 07/06/19 12:08 07/06/19 12:08 07/06/19 12:08 07/06/19 12:08 Plan Activity: fall precautions Weight Bearing Status: Weight Bear as Tolerated Diet: regular Follow up with: PRIMARY CARE, [Primary Care Provider] - 7 Days Prescriptions: levETIRAcetam [Keppra TAB] 750 mg PO BID #60 tablet Potassium Chloride [Klor-Con 8] 8 meq PO QDAY #10 tablet Famotidine [Pepcid] 20 mg PO BID #30 tablet oxyCODONE /ACETAMINOPHEN [Percocet 5/325 mg] 1 tab PO Q8H PRN #6 tablet PRN Reason: Pain, Moderate (4-6)
--- NOTE | 2019-07-06 16:32 | Cat Scan Report ---
CT head/brain wo con INDICATION / CLINICAL INFORMATION: 18 years Female; ams. Some component of motion artifact noted. TECHNIQUE: Routine CT head without contrast. All CT scans at this location are performed using CT dos e reduction for ALARA by means of automated exposure control. COMPARISON: None. FINDINGS: BRAIN / INTRACRANIAL CONTENTS: No acute hemorrhage, mass effect, midline shift, hydrocephalus, or acu te, large territorial infarct. No chronic infarct or atrophy appreciated. No significant white matter abnormality. CRANIOCERVICAL JUNCTION: No significant abnormality. ORBITS: No significant abnormality of visualized orbits. SINUSES / MASTOIDS: There is mild mucosal thickening in the ethmoids. Partial opacification of the me dial right frontal sinus is noted. ADDITIONAL FINDINGS: None. IMPRESSION: 1. No focal mass, hemorrhage, hydrocephalus, or acute, large territorial infarct. Signer Name: Timoteo Chang MD, III Signed: 07/06/2019 4:27 PM Workstation Name: [id number]
== END 2019-07-06 16:02 | disposition home or self-care (01) | DRG 101 ==
LOC: ED 15:11 → 3A 18:03
PROVIDERS: ADMIT Internal Medicine; ATTEND Family Medicine
DX: G40.901 Epilepsy, unspecified, not intractable, with status epilepticus (principal); R11.15 Cyclical vomiting syndrome unrelated to migraine; E86.0 Dehydration; K21.0 Gastro-esophageal reflux disease with esophagitis; J45.909 Unspecified asthma, uncomplicated; F12.20 Cannabis dependence, uncomplicated; E87.6 Hypokalemia; Z82.49 Family history of ischemic heart disease and other diseases of the circulatory system; Z79.2 Long term (current) use of antibiotics; Z79.899 Other long term (current) drug therapy
CPT/HCPCS: 36415; 70450; 80048; 80053; 80076; 80307; 80320; 81001; 84703; 85007; 85025; 90686; 96365; 96375; 96376; G0378; G0480; J1170; J1953; J2060; J2405; J3480; J7030; J7042

== ENCOUNTER 2019-07-07 13:05 | Emergency (ER) | payer MEDICAID ==
[2019-07-07] MEDS ORDERED: levETIRAcetam 1000 MG/NS 0.75% 1,000 MG/100 ML BAG IV ONE ×2 (13:10→13:14)
[2019-07-07] MEDS ORDERED: ONDANSETRON 4 MG/2 ML INJ IV ONE (13:14)
[2019-07-07] MEDS ORDERED: LORazepam 2 MG/ML VIAL IV ONE (13:14)
[2019-07-07] MEDS ORDERED: METOCLOPRAMIDE 10 MG/2 ML INJ IV ONE (13:14)
--- NOTE | 2019-07-07 13:51 | Emergency Department Report ---
ED Seizure HPI - General Chief Complaint: Seizure Stated Complaint: SEIZURES Time Seen by Provider: 07/07/19 13:14 Source: EMS Mode of arrival: Ambulatory Limitations: No Limitations - History of Present Illness Initial Comments: 18-year-old female the past medical history seizures and cyclic vomiting syndrome presents to the hospital with multiple seizures. Patient was just discharged from the hospital yesterday due to cyclic vomiting syndrome. naga ambriz's boyfriend/friends provided history of present illness. He states he dropped the medication off at the pharmacy but has not picked it up today. Patient had approximately 6 seizures prior to my evaluation including seizure activity prior to EMS arrival and around to the hospital. Patient received 2 mg of intranasal Ativan followed by 2 mg of Ativan 1 mg 15 minutes prior to my evaluation. - Related Data Home Medications Medication Instructions Recorded Confirmed Last Taken levETIRAcetam [Keppra TAB] 1,000 mg PO QDAY 07/05/19 07/05/19 06/05/19 Previous Rx's Medication Instructions Recorded Last Taken Type Famotidine [Pepcid] 20 mg PO BID #30 tablet 07/06/19 Unknown Rx Potassium Chloride [Klor-Con 8] 8 meq PO QDAY #10 tablet 07/06/19 Unknown Rx levETIRAcetam [Keppra TAB] 750 mg PO BID #60 tablet 07/06/19 Unknown Rx oxyCODONE /ACETAMINOPHEN [Percocet 1 tab PO Q8H PRN #6 tablet 07/06/19 Unknown Rx 5/325 mg] Ondansetron [Zofran Odt] 4 mg PO Q8HR PRN #20 tab.rapdis 07/07/19 Unknown Rx Promethazine [Phenergan] 25 mg [place] Q6HR PRN #20 supp.rect 07/07/19 Unknown Rx Allergies Allergy/AdvReac Type Severity Reaction Status Date / Time No Known Allergies Allergy Unverified 01/27/16 14:12 ED Review of Systems ROS: Stated complaint: SEIZURES Other details as noted in HPI ED Past Medical Hx - Past Medical History Previous Medical History?: Yes Hx Hypertension: Yes Hx CVA: No Hx Heart Attack/AMI: No Hx Congestive Heart Failure: No Hx Diabetes: No Hx Deep Vein Thrombosis: No Hx Pulmonary Embolism: No Hx GERD: No Hx Liver Disease: No Hx Renal Disease: No Hx of Cancer: No Hx Sickle Cell Disease: No Hx Arthritis: No Hx Headaches / Migraines: No Hx Seizures: Yes Hx Kidney Stones: No Hx Psychiatric Treatment: No Hx Asthma: Yes Hx COPD: No Hx Tuberculosis: No Hx Dementia: No Hx HIV: No - Surgical History Past Surgical History?: No Hx Coronary Stent: No Hx Open Heart Surgery: No Hx Pacemaker: No Hx Internal Defibrillator: No Hx Cholecystectomy: No Hx Appendectomy: No Hx Breast Surgery: No - Social History Smoking Status: Never Smoker Substance Use Type: None - Medications Home Medications: Home Medications Medication Instructions Recorded Confirmed Last Taken Type levETIRAcetam [Keppra TAB] 1,000 mg PO QDAY 07/05/19 07/05/19 06/05/19 History Famotidine [Pepcid] 20 mg PO BID #30 tablet 07/06/19 Unknown Rx Potassium Chloride [Klor-Con 8] 8 meq PO QDAY #10 tablet 07/06/19 Unknown Rx levETIRAcetam [Keppra TAB] 750 mg PO BID #60 tablet 07/06/19 Unknown Rx oxyCODONE /ACETAMINOPHEN [Percocet 1 tab PO Q8H PRN #6 tablet 07/06/19 Unknown Rx 5/325 mg] Ondansetron [Zofran Odt] 4 mg PO Q8HR PRN #20 tab.rapdis 07/07/19 Unknown Rx Promethazine [Phenergan] 25 mg [place] Q6HR PRN #20 supp.rect 07/07/19 Unknown Rx ED Physical Exam - General Limitations: No Limitations - Other Other exam information: General: No acute distress Head: Atraumatic Eyes: normal appearance ENT: Moist mucous membranes Neck: Normal appearance, no midline tenderness Chest: Clear to auscultation bilaterally CV: Regular rate and rhythm Abdomen: Soft, normal bowel sounds, nontender, nondistended, no rebound or guarding Back: Normal inspection Extremity: Normal inspection infection, full range of no gross motor sensory deficit motion Neuro: Patient initially lethargic with equal movement upper and lower extremities with grossly intact sensation. Psych: Appropriate behavior Skin: No rash ED Course Vital Signs 07/07/19 07/07/19 07/07/19 13:16 13:18 13:30 Temperature 98.6 F Pulse Rate 105 H 96 H 92 H Respiratory 21 20 21 Rate Blood Pressure 134/98 134/98 134/98 O2 Sat by Pulse 97 99 96 Oximetry 07/07/19 07/07/19 07/07/19 13:46 14:00 14:02 Temperature Pulse Rate 92 H 89 Respiratory 19 14 18 Rate Blood Pressure 134/98 134/98 O2 Sat by Pulse 98 96 100 Oximetry 07/07/19 07/07/19 07/07/19 14:16 14:30 14:46 Temperature Pulse Rate 86 84 74 Respiratory 15 15 15 Rate Blood Pressure 117/77 117/77 117/77 O2 Sat by Pulse 94 97 96 Oximetry 07/07/19 07/07/19 15:00 15:16 Temperature Pulse Rate 85 89 Respiratory 18 18 Rate Blood Pressure 101/47 101/47 O2 Sat by Pulse 92 91 Oximetry - Reevaluation(s) Reevaluation #1: 07/07/19 13:49 Upon arrival nurse and EMS reported the patient had a seizure. Time of my bedside evaluation there was no seizure activity. Patient received additional Ativan 1 mg. Patient then had another seizure approximately 5 minutes ago. I came to by set to evaluate patient during seizure activity. Patient was moving around in the bed without tonic-clonic movement. She did purposely coverup the lower part of her body with a sheet and made eye contact however she will not speak and continued to move around in the bed. I'm highly suspicious for pseudoseizures given the patient has now received 2 mg of intranasal Ativan, and a total of 3 mg of IV Ativan, as well as IV Keppra. Boyfriend at the bedside reports that patient typically has the seizure episodes in relationship to her vomiting. He also reports that she she is back to her baseline immediately after shaking episode stops. During recent admission patient was a viral by neurologist Dr. Marks back was just that sick and vomiting could be a type of seizure disorder/syndrome and ordered a prolactin level 07/07/19 17:30 Patient is currently alert and at baseline mental status. She's asymptomatic with a nonfocal neuro exam and wants to go home. ED Medical Decision Making - Lab Data Result diagrams: 07/07/19 14:32 07/07/19 14:32 Lab Results 07/07/19 07/07/19 07/07/19 Range/Units 13:23 14:02 14:32 WBC 12.9 H (4.5-11.0) K/mm3 RBC 4.59 (3.65-5.03) M/mm3 Hgb 13.1 (10.1-14.3) gm/dl Hct 39.5 (30.3-42.9) % MCV 86 (79-97) fl MCH 29 (28-32) pg MCHC 33 (30-34) % RDW 14.1 (13.2-15.2) % Plt Count 301 (140-440) K/mm3 Add Manual Diff Complete Total Counted 100 Seg Neutrophils % Slotter Operator Helper Seg Neuts % (Manual) 93.0 H (40.0-70.0) % Band Neutrophils % 0 % Lymphocytes % (Manual) 5.0 L (13.4-35.0) % Reactive Lymphs % (Man) 0 % Monocytes % (Manual) 2.0 (0.0-7.3) % Eosinophils % (Manual) 0 (0.0-4.3) % Basophils % (Manual) 0 (0.0-1.8) % Metamyelocytes % 0 % Myelocytes % 0 % Promyelocytes % 0 % Blast Cells % 0 % Nucleated RBC % Not Reportable Seg Neutrophils # Man 12.0 H (1.8-7.7) K/mm3 Band Neutrophils # 0.0 K/mm3 Lymphocytes # (Manual) 0.6 L (1.2-5.4) K/mm3 Abs React Lymphs (Man) 0.0 K/mm3 Monocytes # (Manual) 0.3 (0.0-0.8) K/mm3 Eosinophils # (Manual) 0.0 (0.0-0.4) K/mm3 Basophils # (Manual) 0.0 (0.0-0.1) K/mm3 Metamyelocytes # 0.0 K/mm3 Myelocytes # 0.0 K/mm3 Promyelocytes # 0.0 K/mm3 Blast Cells # 0.0 K/mm3 WBC Morphology Not Reportable Hypersegmented Neuts Not Reportable Hyposegmented Neuts Not Reportable Hypogranular Neuts Not Reportable Smudge Cells Not Reportable Toxic Granulation Not Reportable Toxic Vacuolation Not Reportable Dohle Bodies Not Reportable Pelger-Huet Anomaly Not Reportable Silverio Rods Not Reportable Platelet Estimate Appears normal Clumped Platelets Not Reportable Plt Clumps, EDTA Not Reportable Large Platelets Not Reportable Giant Platelets Not Reportable Platelet Satelliting Not Reportable Plt Morphology Comment Not Reportable RBC Morphology Not Reportable Dimorphic RBCs Not Reportable Polychromasia Not Reportable Hypochromasia Not Reportable Poikilocytosis Not Reportable Anisocytosis Few Microcytosis Not Reportable Macrocytosis Not Reportable Spherocytes Not Reportable Pappenheimer Bodies Not Reportable Sickle Cells Not Reportable Target Cells Not Reportable Tear Drop Cells Not Reportable Ovalocytes Not Reportable Helmet Cells Not Reportable [place] Bodies Not Reportable [place] Rings Not Reportable Manju Cells Not Reportable Bite Cells Not Reportable Crenated Cell Not Reportable Elliptocytes Not Reportable Acanthocytes (Spur) Not Reportable Rouleaux Not Reportable Hemoglobin C Crystals Not Reportable Schistocytes Not Reportable Malaria parasites Not Reportable Cruz Bodies Not Reportable Hem Pathologist Commnt No Sodium (137-145) mmol/L Potassium (3.6-5.0) mmol/L Chloride (98-107) mmol/L Carbon Dioxide (22-30) mmol/L Anion Gap mmol/L BUN (7-17) mg/dL Creatinine (0.7-1.2) mg/dL Estimated GFR ml/min BUN/Creatinine Ratio % Glucose (65-100) mg/dL POC Glucose 76 (70-105) Calcium (8.4-10.2) mg/dL Magnesium (1.7-2.3) mg/dL Total Bilirubin (0.1-1.2) mg/dL AST (5-40) units/L ALT (7-56) units/L Alkaline Phosphatase (35-129) units/L Total Protein (6.3-8.2) g/dL Albumin (3.9-5) g/dL Albumin/Globulin Ratio % Lipase (13-60) units/L HCG, Qual (Negative) Urine Opiates Screen Presumptive negative Urine Methadone Screen Presumptive negative Ur Barbiturates Screen Presumptive negative Ur Phencyclidine Scrn Presumptive negative Ur Amphetamines Screen Presumptive negative U Benzodiazepines Scrn Presumptive negative Urine Cocaine Screen Presumptive negative U Marijuana (THC) Screen Presumptive positive Drugs of Abuse Note Disclamer 07/07/19 07/07/19 Range/Units 14:32 14:32 WBC (4.5-11.0) K/mm3 RBC (3.65-5.03) M/mm3 Hgb (10.1-14.3) gm/dl Hct (30.3-42.9) % MCV (79-97) fl MCH (28-32) pg MCHC (30-34) % RDW (13.2-15.2) % Plt Count (140-440) K/mm3 Add Manual Diff Total Counted Seg Neutrophils % Seg Neuts % (Manual) (40.0-70.0) % Band Neutrophils % % Lymphocytes % (Manual) (13.4-35.0) % Reactive Lymphs % (Man) % Monocytes % (Manual) (0.0-7.3) % Eosinophils % (Manual) (0.0-4.3) % Basophils % (Manual) (0.0-1.8) % Metamyelocytes % % Myelocytes % % Promyelocytes % % Blast Cells % % Nucleated RBC % Seg Neutrophils # Man (1.8-7.7) K/mm3 Band Neutrophils # K/mm3 Lymphocytes # (Manual) (1.2-5.4) K/mm3 Abs React Lymphs (Man) K/mm3 Monocytes # (Manual) (0.0-0.8) K/mm3 Eosinophils # (Manual) (0.0-0.4) K/mm3 Basophils # (Manual) (0.0-0.1) K/mm3 Metamyelocytes # K/mm3 Myelocytes # K/mm3 Promyelocytes # K/mm3 Blast Cells # K/mm3 WBC Morphology Hypersegmented Neuts Hyposegmented Neuts Hypogranular Neuts Smudge Cells Toxic Granulation Toxic Vacuolation Dohle Bodies Pelger-Huet Anomaly Silverio Rods Platelet Estimate Clumped Platelets Plt Clumps, EDTA Large Platelets Giant Platelets Platelet Satelliting Plt Morphology Comment RBC Morphology Dimorphic RBCs Polychromasia Hypochromasia Poikilocytosis Anisocytosis Microcytosis Macrocytosis Spherocytes Pappenheimer Bodies Sickle Cells Target Cells Tear Drop Cells Ovalocytes Helmet Cells [place] Bodies [place] Rings [place] Cells Bite Cells Crenated Cell Elliptocytes Acanthocytes (Spur) Rouleaux Hemoglobin C Crystals Schistocytes Malaria parasites Cruz Bodies Hem Pathologist Commnt Sodium 139 (137-145) mmol/L Potassium 3.8 (3.6-5.0) mmol/L Chloride 103.6 (98-107) mmol/L Carbon Dioxide 20 L (22-30) mmol/L Anion Gap 19 mmol/L BUN 5 L (7-17) mg/dL Creatinine 0.8 (0.7-1.2) mg/dL Estimated GFR > 60 ml/min BUN/Creatinine Ratio 6 % Glucose 87 (65-100) mg/dL POC Glucose (70-105) Calcium 9.2 (8.4-10.2) mg/dL Magnesium 1.60 L (1.7-2.3) mg/dL Total Bilirubin 0.40 (0.1-1.2) mg/dL AST 18 (5-40) units/L ALT 11 (7-56) units/L Alkaline Phosphatase 66 (35-129) units/L Total Protein 6.7 (6.3-8.2) g/dL Albumin 4.0 (3.9-5) g/dL Albumin/Globulin Ratio 1.5 % Lipase 39 (13-60) units/L HCG, Qual Negative (Negative) Urine Opiates Screen Urine Methadone Screen Ur Barbiturates Screen Ur Phencyclidine Scrn Ur Amphetamines Screen U Benzodiazepines Scrn Urine Cocaine Screen U Marijuana (THC) Screen Drugs of Abuse Note - Medical Decision Making Patient has seizure-like activity in the ED suspicious for pseudoseizures. After a period of observation patient is smiling, playful, and told her boyfriend and she did not want a chiropractor house and wanted to stay with him. She wants to go home. No nausea or vomiting currently. Zofran and Phenergan OH prescribed as needed. Patient encouraged to take her Keppra as prescribed. Pt did receive IV magnesium for mild hypomagnesemia - Differential Diagnosis seizures, pseudoseizures Critical Care Time: No Critical care attestation.: If time is entered above; I have spent that time in minutes in the direct care of this critically ill patient, excluding procedure time. ED Disposition Clinical Impression: Seizure-like activity, Nausea & vomiting, Cyclic vomiting syndrome, Hypomagnesemia, Marijuana use Disposition: DC-01 TO HOME OR SELFCARE Is pt being admited?: No Does the pt Need Aspirin: No Condition: Stable Instructions: Non-epileptic Seizures (ED), Acute Nausea and Vomiting (ED), Recurrent Seizures Adult (ED) Additional Instructions: Take the medication as prescribed. Follow-up with your doctor or doctor/clinic provided. Return if symptoms worsen as indicated by your discharge instructions. Prescriptions: Promethazine [Phenergan] 25 mg [place] Q6HR PRN #20 supp.rect PRN Reason: Nausea And Vomiting Ondansetron [Zofran Odt] 4 mg PO Q8HR PRN #20 tab.rapdis PRN Reason: Nausea And Vomiting Referrals: KRISTEL MALAVE MD [Staff Physician] - 3-5 Days (Neurology) SVETLANA SEGURA MD [Staff Physician] - 3-5 Days (Primary care doctor ) [facility] [Provider Group] - 3-5 Days Time of Disposition: 17:32
[2019-07-07] MEDS ORDERED: SODIUM CHLORIDE 0.9% 1000 ML 1,000 ML IV ONE (14:18)
[2019-07-07 14:41] LABS: Amphetamine Screen,Urine PRESUMPTIVE NEGATIVE; Benzodiazepines Screen,Urine PRESUMPTIVE NEGATIVE; Cocaine Screen,Urine PRESUMPTIVE NEGATIVE; Methadone Screen,Urine PRESUMPTIVE NEGATIVE; Opiate Screen,Urine PRESUMPTIVE NEGATIVE
[2019-07-07 14:51] LABS: Hematocrit 39.5 % (30.3-42.9); Hemoglobin 13.1 gm/dl (10.1-14.3); Mean Corpuscular HGB Conc 33 % (30-34); Mean Corpuscular Volume 86 fl (79-97); Platelet Count 301 K/mm3 (140-440); Red Blood Count 4.59 M/mm3 (3.65-5.03); Red Cell Distribution Width 14.1 % (13.2-15.2)
[2019-07-07 14:53] LABS: Cannabinoid Screen,Urine PRESUMPTIVE POSITIVE
[2019-07-07 15:06] LABS: Alanine Aminotransferase 11 units/L (7-56); BUN/Creatinine Ratio 6; Blood Urea Nitrogen 5 mg/dL (7-17); Calcium 9.2 mg/dL (8.4-10.2); Hemolysis Index 19
[2019-07-07 15:26] VITALS: BP 101/47
[2019-07-07] MEDS ORDERED: MAGNESIUM SULFATE 2 GM/50 ML BAG IV ONE (16:06)
[2019-07-07 16:21] LABS: Basophils % (Manual) 0 % (0.0-1.8); Eosinophils % (Manual) 0 % (0.0-4.3); Total Cells Counted 100
[2019-07-07 16:22] LABS: Anisocytosis Few
== END 2019-07-07 18:13 | disposition home or self-care (01) ==
LOC: ED 13:05
DX: G40.909 Epilepsy, unspecified, not intractable, without status epilepticus (principal); R11.2 Nausea with vomiting, unspecified; R11.15 Cyclical vomiting syndrome unrelated to migraine; E83.42 Hypomagnesemia; F12.10 Cannabis abuse, uncomplicated; I10 Essential (primary) hypertension; J45.909 Unspecified asthma, uncomplicated; Z79.899 Other long term (current) drug therapy
CPT/HCPCS: 36415; 80053; 80307; 82962; 83690; 83735; 84703; 85007; 85025; 96361; 96365; 96375; 99284; J1953; J2405; J2765; J3475; J7030

== ENCOUNTER 2019-07-11 19:45 | Emergency (ER) | payer MEDICAID ==
[2019-07-11] MEDS ORDERED: levETIRAcetam 1000 MG/NS 0.75% 1,000 MG/100 ML BAG IV ONE ×2 (21:00→21:08)
[2019-07-11] MEDS ORDERED: FAMOTIDINE 20 MG/2 ML INJ IV ONE (21:29)
[2019-07-11] MEDS ORDERED: ONDANSETRON 4 MG/2 ML INJ IV ONE (21:29)
[2019-07-11] MEDS ORDERED: DICYCLOMINE 20 MG/2 ML INJ IM ONE (21:29)
[2019-07-11] MEDS ORDERED: ZIPRASIDONE MESYLATE 20 MG VIAL IM ONE (21:32)
--- NOTE | 2019-07-11 21:37 | Emergency Department Report ---
ED General Adult HPI - General Chief complaint: Seizure Stated complaint: SEIZURE Time Seen by Provider: 07/11/19 21:07 Source: EMS Mode of arrival: Stretcher Limitations: Altered Mental Status - History of Present Illness Initial comments: Patient is a 18-year-old female who has a seizure/pseudoseizure disorder as well as cyclical vomiting syndrome. Patient has been brought in by paramedics today secondary to having 5 seizures. 2 witnessed by EMS and the patient was given Versed 2. Seizure like activity has stopped since the pa tient is arrived. Patient's boyfriend's giving a second or collateral information states that the patient was having some epigastric pain with nausea and vomiting today. Seizures started after he got back home the patient was complaining of pain and nausea vomiting. Patient is been admitted to the hospital for cyclical vomiting syndrome and seizures in the past. Is unknown whether the patient has had fevers cough, congestion diarrhea with nausea vomiting. Review of the patient's past medical history the patient on June 11 of this year had a CT of abdomen and pelvis with contrast performed secondary to nausea vomiting abdominal pain. CT shows some mild gastric distention however no other abnormalities are seen at this time. Severity scale (0 -10): 5 - Related Data Home Medications Medication Instructions Recorded Confirmed Last Taken levETIRAcetam [Keppra TAB] 1,000 mg PO QDAY 07/05/19 07/05/19 06/05/19 Previous Rx's Medication Instructions Recorded Last Taken Type Famotidine [Pepcid] 20 mg PO BID #30 tablet 07/06/19 Unknown Rx Potassium Chloride [Klor-Con 8] 8 meq PO QDAY #10 tablet 07/06/19 Unknown Rx levETIRAcetam [Keppra TAB] 750 mg PO BID #60 tablet 07/06/19 Unknown Rx oxyCODONE /ACETAMINOPHEN [Percocet 1 tab PO Q8H PRN #6 tablet 07/06/19 Unknown Rx 5/325 mg] Ondansetron [Zofran Odt] 4 mg PO Q8HR PRN #20 tab.rapdis 07/07/19 Unknown Rx Promethazine [Phenergan] 25 mg [place] Q6HR PRN #20 supp.rect 07/07/19 Unknown Rx Dicyclomine [Bentyl] 20 mg PO QID #10 tablet 07/12/19 Unknown Rx Famotidine [Pepcid] 40 mg PO QHS #10 tablet 07/12/19 Unknown Rx Ondansetron [Zofran Odt] 4 mg PO Q8HR #10 tab.rapdis 07/12/19 Unknown Rx levETIRAcetam [Keppra TAB] 500 mg PO BID #60 tablet 07/12/19 Unknown Rx Allergies Allergy/AdvReac Type Severity Reaction Status Date / Time No Known Allergies Allergy Unverified 01/27/16 14:12 ED Review of Systems ROS: Stated complaint: SEIZURE Other details as noted in HPI Comment: Unobtainable due to pts medical conditions ED Past Medical Hx - Past Medical History Previous Medical History?: Yes Hx Hypertension: Yes Hx CVA: No Hx Heart Attack/AMI: No Hx Congestive Heart Failure: No Hx Diabetes: No Hx Deep Vein Thrombosis: No Hx Pulmonary Embolism: No Hx GERD: No Hx Liver Disease: No Hx Renal Disease: No Hx Sickle Cell Disease: No Hx Arthritis: No Hx Headaches / Migraines: No Hx Seizures: Yes Hx Kidney Stones: No Hx Psychiatric Treatment: No Hx Asthma: Yes Hx COPD: No Hx Tuberculosis: No Hx Dementia: No Hx HIV: No - Surgical History Past Surgical History?: No Hx Coronary Stent: No Hx Open Heart Surgery: No Hx Pacemaker: No Hx Internal Defibrillator: No Hx Cholecystectomy: No Hx Appendectomy: No Hx Breast Surgery: No - Social History Smoking Status: Never Smoker Substance Use Type: None - Medications Home Medications: Home Medications Medication Instructions Recorded Confirmed Last Taken Type levETIRAcetam [Keppra TAB] 1,000 mg PO QDAY 07/05/19 07/05/19 06/05/19 History Famotidine [Pepcid] 20 mg PO BID #30 tablet 07/06/19 Unknown Rx Potassium Chloride [Klor-Con 8] 8 meq PO QDAY #10 tablet 07/06/19 Unknown Rx levETIRAcetam [Keppra TAB] 750 mg PO BID #60 tablet 07/06/19 Unknown Rx oxyCODONE /ACETAMINOPHEN [Percocet 1 tab PO Q8H PRN #6 tablet 07/06/19 Unknown Rx 5/325 mg] Ondansetron [Zofran Odt] 4 mg PO Q8HR PRN #20 tab.rapdis 07/07/19 Unknown Rx Promethazine [Phenergan] 25 mg [place] Q6HR PRN #20 supp.rect 07/07/19 Unknown Rx Dicyclomine [Bentyl] 20 mg PO QID #10 tablet 07/12/19 Unknown Rx Famotidine [Pepcid] 40 mg PO QHS #10 tablet 07/12/19 Unknown Rx Ondansetron [Zofran Odt] 4 mg PO Q8HR #10 tab.rapdis 07/12/19 Unknown Rx levETIRAcetam [Keppra TAB] 500 mg PO BID #60 tablet 07/12/19 Unknown Rx ED Physical Exam - General Limitations: Altered Mental Status General appearance: alert, anxious, in distress, postictal (patient holding abd and rocking back and forth. answers questions slowly) - Head Head exam: Present: atraumatic, normocephalic - Eye Eye exam: Present: normal appearance, PERRL, EOMI - ENT ENT exam: Present: mucous membranes moist - Neck Neck exam: Present: normal inspection - Respiratory Respiratory exam: Present: normal lung sounds bilaterally. Absent: respiratory distress, wheezes, rales, rhonchi - Cardiovascular Cardiovascular Exam: Present: regular rate, normal rhythm, normal heart sounds. Absent: systolic murmur, diastolic murmur, rubs, gallop - GI/Abdominal GI/Abdominal exam: Present: soft, tenderness (epigastric), normal bowel sounds. Absent: distended, guarding, rebound - Extremities Exam Extremities exam: Present: normal inspection - Back Exam Back exam: Present: normal inspection - Neurological Exam Neurological exam: Present: alert, oriented X3 - Psychiatric Psychiatric exam: Present: normal affect, normal mood - Skin Skin exam: Present: warm, dry, intact, normal color. Absent: rash ED Course Vital Signs 07/11/19 07/11/19 07/11/19 20:44 21:39 21:45 Temperature 98.4 F Pulse Rate 99 H 99 H 89 Respiratory 19 12 15 Rate Blood Pressure 153/111 Blood Pressure 178/126 [Left] O2 Sat by Pulse 99 100 100 Oximetry 07/11/19 07/11/19 07/11/19 22:01 22:15 22:31 Temperature Pulse Rate 93 H 79 89 Respiratory 13 13 20 Rate Blood Pressure 163/106 171/124 150/101 Blood Pressure [Left] O2 Sat by Pulse 97 98 99 Oximetry 07/11/19 07/11/19 07/11/19 22:45 23:01 23:15 Temperature Pulse Rate 103 H 87 83 Respiratory 21 19 17 Rate Blood Pressure 153/100 138/96 172/113 Blood Pressure [Left] O2 Sat by Pulse 100 100 98 Oximetry 07/11/19 23:25 Temperature Pulse Rate Respiratory 18 Rate Blood Pressure Blood Pressure [Left] O2 Sat by Pulse 100 Oximetry ED Medical Decision Making - Lab Data Result diagrams: 07/11/19 21:37 07/11/19 21:37 Lab Results 07/11/19 07/11/19 07/11/19 Range/Units 21:37 21:37 21:37 WBC 16.1 H (4.5-11.0) K/mm3 RBC 5.14 H (3.65-5.03) M/mm3 Hgb 14.5 H (10.1-14.3) gm/dl Hct 44.2 H (30.3-42.9) % MCV 86 (79-97) fl MCH 28 (28-32) pg MCHC 33 (30-34) % RDW 14.3 (13.2-15.2) % Plt Count 303 (140-440) K/mm3 Lymph % (Auto) Broadcast Program Director Perry % (Auto) Broadcast Program Director Eos % (Auto) Broadcast Program Director Baso % (Auto) Broadcast Program Director Lymph # Broadcast Program Director Perry # Broadcast Program Director Eos # Broadcast Program Director Baso # Broadcast Program Director Seg Neutrophils % Broadcast Program Director Seg Neutrophils # Broadcast Program Director Sodium (137-145) mmol/L Potassium (3.6-5.0) mmol/L Chloride (98-107) mmol/L Carbon Dioxide (22-30) mmol/L Anion Gap mmol/L BUN (7-17) mg/dL Creatinine (0.7-1.2) mg/dL Estimated GFR ml/min BUN/Creatinine Ratio % Glucose (65-100) mg/dL Calcium (8.4-10.2) mg/dL Total Bilirubin (0.1-1.2) mg/dL AST (5-40) units/L ALT (7-56) units/L Alkaline Phosphatase (35-129) units/L Total Protein (6.3-8.2) g/dL Albumin (3.9-5) g/dL Albumin/Globulin Ratio % Lipase (13-60) units/L HCG, Qual Negative (Negative) Plasma/Serum Alcohol < 0.01 (0-0.07) % 07/11/19 Range/Units 21:37 WBC (4.5-11.0) K/mm3 RBC (3.65-5.03) M/mm3 Hgb (10.1-14.3) gm/dl Hct (30.3-42.9) % MCV (79-97) fl MCH (28-32) pg MCHC (30-34) % RDW (13.2-15.2) % Plt Count (140-440) K/mm3 Lymph % (Auto) Perry % (Auto) Eos % (Auto) Baso % (Auto) Lymph # Perry # Eos # Baso # Seg Neutrophils % Seg Neutrophils # Sodium 136 L (137-145) mmol/L Potassium 4.7 D (3.6-5.0) mmol/L Chloride 100.5 (98-107) mmol/L Carbon Dioxide 15 L (22-30) mmol/L Anion Gap 25 mmol/L BUN 6 L (7-17) mg/dL Creatinine 0.9 (0.7-1.2) mg/dL Estimated GFR > 60 ml/min BUN/Creatinine Ratio 7 % Glucose 86 (65-100) mg/dL Calcium 9.9 (8.4-10.2) mg/dL Total Bilirubin 0.40 (0.1-1.2) mg/dL AST 29 (5-40) units/L ALT 12 (7-56) units/L Alkaline Phosphatase 75 (35-129) units/L Total Protein 8.0 (6.3-8.2) g/dL Albumin 4.7 (3.9-5) g/dL Albumin/Globulin Ratio 1.4 % Lipase 25 (13-60) units/L HCG, Qual (Negative) Plasma/Serum Alcohol (0-0.07) % - Medical Decision Making Patient's nausea vomiting improved after antiemetics and Geodon. Patient is resting comfortably. Patient is a longer postictal. Patient was loaded with Keppra. Patient be discharged home given follow-up with primary care. Also gave the patient a brochure for [facility] as her boyfriend believes that her symptoms are stress induced. Critical care attestation.: If time is entered above; I have spent that time in minutes in the direct care of this critically ill patient, excluding procedure time. ED Disposition Clinical Impression: Cyclic vomiting syndrome, Convulsion, Psychogenic nonepileptic seizure Disposition: DC-01 TO HOME OR SELFCARE Is pt being admited?: No Does the pt Need Aspirin: No Condition: Stable Referrals: DEYANIRA KOHLI MD [Primary Care Provider] - 3-5 Days Time of Disposition: 00:24
[2019-07-11 22:20] LABS: Hematocrit 44.2 % (30.3-42.9); Hemoglobin 14.5 gm/dl (10.1-14.3); Mean Corpuscular HGB Conc 33 % (30-34); Mean Corpuscular Volume 86 fl (79-97); Platelet Count 303 K/mm3 (140-440); Red Blood Count 5.14 M/mm3 (3.65-5.03); Red Cell Distribution Width 14.3 % (13.2-15.2)
[2019-07-11 22:27] LABS: Albumin 4.7 g/dL (3.9-5); BUN/Creatinine Ratio 7; Blood Urea Nitrogen 6 mg/dL (7-17); Calcium 9.9 mg/dL (8.4-10.2); Hemolysis Index 203
[2019-07-11 22:30] LABS: Alanine Aminotransferase 12 units/L (7-56)
[2019-07-12 03:29] VITALS: BP 91/51
== END 2019-07-12 01:45 | disposition home or self-care (01) ==
LOC: ED 19:45
DX: R56.9 Unspecified convulsions (principal); G40.409 Other generalized epilepsy and epileptic syndromes, not intractable, without status epilepticus; R11.15 Cyclical vomiting syndrome unrelated to migraine; I10 Essential (primary) hypertension; J45.909 Unspecified asthma, uncomplicated; Z79.899 Other long term (current) drug therapy
CPT/HCPCS: 36415; 80053; 83690; 84703; 85025; 96365; 96372; 96375; 99284; J0500; J1953; J2405; J3486; 80320; G0480

== ENCOUNTER 2019-07-23 18:23 | Emergency (ER) | payer MEDICAID ==
--- NOTE | 2019-07-23 20:32 | Emergency Department Report ---
ED General Adult HPI - General Chief complaint: Seizure Stated complaint: SEIZURE Time Seen by Provider: 07/23/19 20:26 Source: patient, family Mode of arrival: Stretcher Limitations: No Limitations - History of Present Illness Initial comments: Patient is a 18-year-old female that presents emergency room with complaints of a seizure and abdominal pain. Patient states she had one seizure today. Patient states she missed her Keppra today. Patient states she just couldn't afford the medications at the pharmacy today. Patient states her real problem is her abdominal pain. Patient states her abdominal pain as a 10 out of 10 and feels like someone is stabbing her in the lower part of her abdomen. Patient states it is her bilateral lower abdomen that is hurting. Patient also complains of nausea and vomiting 3. Patient states the pain is worse with palpation and movement. Patient states the pain is also worse with vomiting. Patient states the pain is better with rest. Patient denies vaginal discharge. Patient states that she is on her period right now. Patient states she is a A2. Patient's seizure was witnessed by her significant other. Family over states that the seizure was short and there was no trauma involved. Patient denies tongue injury or shoulder injury. -: Sudden Location: abdomen Radiation: non-radiation Severity scale (0 -10): 10 Quality: stabbing Consistency: constant Improves with: rest Worsens with: movement, other Associated Symptoms: cough, nausea/vomiting, seizure. denies: confusion, chest pain, diaphoresis, fever/chills, headaches, loss of appetite, malaise, rash, evette rtness of breath, syncope, weakness Treatments Prior to Arrival: none - Related Data Home Medications Medication Instructions Recorded Confirmed Last Taken levETIRAcetam [Keppra TAB] 1,000 mg PO QDAY 07/05/19 07/05/19 06/05/19 Previous Rx's Medication Instructions Recorded Last Taken Type Famotidine [Pepcid] 20 mg PO BID #30 tablet 07/06/19 Unknown Rx Potassium Chloride [Klor-Con 8] 8 meq PO QDAY #10 tablet 07/06/19 Unknown Rx levETIRAcetam [Keppra TAB] 750 mg PO BID #60 tablet 07/06/19 Unknown Rx oxyCODONE /ACETAMINOPHEN [Percocet 1 tab PO Q8H PRN #6 tablet 07/06/19 Unknown Rx 5/325 mg] Promethazine [Phenergan] 25 mg SC Q6HR PRN #20 supp.rect 07/07/19 Unknown Rx Dicyclomine [Bentyl] 20 mg PO QID #10 tablet 07/12/19 Unknown Rx Famotidine [Pepcid] 40 mg PO QHS #10 tablet 07/12/19 Unknown Rx Ondansetron [Zofran Odt] 4 mg PO Q8HR #10 tab.rapdis 07/12/19 Unknown Rx levETIRAcetam [Keppra TAB] 500 mg PO BID #60 tablet 07/12/19 Unknown Rx Famotidine [Pepcid] 20 mg PO BID #30 tablet 07/13/19 Unknown Rx levETIRAcetam [Keppra TAB] 500 mg PO BID #90 tablet 07/13/19 Unknown Rx Ondansetron [Zofran ODT TAB] 4 mg PO Q8HR PRN #14 tab.rapdis 07/17/19 Unknown Rx Ciprofloxacin HCl [Ciprofloxacin 500 mg PO Q12HR 10 Days #20 tab 07/23/19 Unknown Rx TAB] Ondansetron [Zofran Odt] 4 mg PO Q6HR PRN #20 tab.rapdis 07/23/19 Unknown Rx methylPREDNISolone [Medrol 4MG 4 mg PO DAILY 6 Days #1 tab.ds.pk 07/23/19 Unknown Rx DOSEPAK (21 tabs)] metroNIDAZOLE [Flagyl] 500 mg PO Q12HR 10 Days #20 tab 07/23/19 Unknown Rx Allergies Allergy/AdvReac Type Severity Reaction Status Date / Time No Known Allergies Allergy Unverified 07/13/19 17:21 ED Review of Systems ROS: Stated complaint: SEIZURE Other details as noted in HPI Constitutional: denies: chills, fever Eyes: denies: eye pain, eye discharge, vision change ENT: denies: ear pain, throat pain Respiratory: cough. denies: shortness of breath, SOB with exertion, SOB at rest, wheezing Cardiovascular: denies: chest pain, palpitations Endocrine: no symptoms reported Gastrointestinal: abdominal pain, nausea, vomiting. denies: diarrhea Genitourinary: denies: urgency, dysuria, discharge Musculoskeletal: denies: back pain, joint swelling, arthralgia Skin: denies: rash, lesions Neurological: as per HPI, other. denies: headache, weakness, paresthesias Psychiatric: denies: anxiety, depression Hematological/Lymphatic: denies: easy bleeding, easy bruising ED Past Medical Hx - Past Medical History Previous Medical History?: Yes Hx Hypertension: Yes Hx CVA: No Hx Heart Attack/AMI: No Hx Congestive Heart Failure: No Hx Diabetes: No Hx Deep Vein Thrombosis: No Hx Pulmonary Embolism: No Hx GERD: No Hx Liver Disease: No Hx Renal Disease: No Hx Sickle Cell Disease: No Hx Arthritis: No Hx Headaches / Migraines: No Hx Seizures: Yes Hx Kidney Stones: No Hx Psychiatric Treatment: No Hx Asthma: Yes Hx COPD: No Hx Tuberculosis: No Hx Dementia: No Hx HIV: No - Surgical History Past Surgical History?: No Hx Coronary Stent: No Hx Open Heart Surgery: No Hx Pacemaker: No Hx Internal Defibrillator: No Hx Cholecystectomy: No Hx Appendectomy: No Hx Breast Surgery: No - Family History Family history: no significant - Social History Smoking Status: Never Smoker Substance Use Type: Marijuana - Medications Home Medications: Home Medications Medication Instructions Recorded Confirmed Last Taken Type levETIRAcetam [Keppra TAB] 1,000 mg PO QDAY 07/05/19 07/05/19 06/05/19 History Famotidine [Pepcid] 20 mg PO BID #30 tablet 07/06/19 Unknown Rx Potassium Chloride [Klor-Con 8] 8 meq PO QDAY #10 tablet 07/06/19 Unknown Rx levETIRAcetam [Keppra TAB] 750 mg PO BID #60 tablet 07/06/19 Unknown Rx oxyCODONE /ACETAMINOPHEN [Percocet 1 tab PO Q8H PRN #6 tablet 07/06/19 Unknown Rx 5/325 mg] Promethazine [Phenergan] 25 mg SC Q6HR PRN #20 supp.rect 07/07/19 Unknown Rx Dicyclomine [Bentyl] 20 mg PO QID #10 tablet 07/12/19 Unknown Rx Famotidine [Pepcid] 40 mg PO QHS #10 tablet 07/12/19 Unknown Rx Ondansetron [Zofran Odt] 4 mg PO Q8HR #10 tab.rapdis 07/12/19 Unknown Rx levETIRAcetam [Keppra TAB] 500 mg PO BID #60 tablet 07/12/19 Unknown Rx Famotidine [Pepcid] 20 mg PO BID #30 tablet 07/13/19 Unknown Rx levETIRAcetam [Keppra TAB] 500 mg PO BID #90 tablet 07/13/19 Unknown Rx Ondansetron [Zofran ODT TAB] 4 mg PO Q8HR PRN #14 tab.rapdis 07/17/19 Unknown Rx Ciprofloxacin HCl [Ciprofloxacin 500 mg PO Q12HR 10 Days #20 tab 07/23/19 Unknown Rx TAB] Ondansetron [Zofran Odt] 4 mg PO Q6HR PRN #20 tab.rapdis 07/23/19 Unknown Rx methylPREDNISolone [Medrol 4MG 4 mg PO DAILY 6 Days #1 tab.ds.pk 07/23/19 Unkn own Rx DOSEPAK (21 tabs)] metroNIDAZOLE [Flagyl] 500 mg PO Q12HR 10 Days #20 tab 07/23/19 Unknown Rx ED Physical Exam - General Limitations: No Limitations General appearance: alert, in no apparent distress - Head Head exam: Present: atraumatic, normocephalic - Eye Eye exam: Present: normal appearance, PERRL Pupils: Present: normal accommodation - ENT ENT exam: Present: mucous membranes moist - Neck Neck exam: Present: normal inspection - Respiratory Respiratory exam: Present: normal lung sounds bilaterally. Absent: respiratory distress, wheezes, rales - Cardiovascular Cardiovascular Exam: Present: regular rate, normal rhythm. Absent: systolic murmur, diastolic murmur, rubs, gallop - GI/Abdominal GI/Abdominal exam: Present: soft, tenderness (nic lower quad and suprapubic ttp), normal bowel sounds - Extremities Exam Extremities exam: Present: normal inspection - Back Exam Back exam: Present: normal inspection - Neurological Exam Neurological exam: Present: alert, oriented X3 - Psychiatric Psychiatric exam: Present: normal affect, normal mood - Skin Skin exam: Present: warm, dry, intact, normal color. Absent: rash ED Course Vital Signs 07/23/19 07/23/19 07/23/19 19:20 21:01 21:31 Temperature 98.3 F Pulse Rate 78 Respiratory 18 18 18 Rate Blood Pressure 99/70 Blood Pressure 99/70 [Left] O2 Sat by Pulse 99 Oximetry 07/23/19 23:05 Temperature Pulse Rate 78 Respiratory 18 Rate Blood Pressure Blood Pressure 110/78 [Left] O2 Sat by Pulse 100 Oximetry - Reevaluation(s) Reevaluation #1: I discussed all results with patient. Patient states she would rather go home. 07/23/19 23:25 Reevaluation #2: By mouth challenge done and the patient tolerated by mouth intake. Patient states she is feeling much better. Patient states she is pain-free. Patient denies nausea vomiting at this time. I discussed all results with patient. Patient stable for discharge. Patient be discharged home. Patient given discharge instructions. Patient voiced understanding of discharge instructions. 07/23/19 23:54 - Consultations Consultation #1: I discussed case with GI, Dr. Bui. Dr. Bui states that the patient is stable to go home and be followed up as an outpatient as long she tolerates by mouth intake. 07/23/19 23:38 ED Medical Decision Making - Lab Data Result diagrams: 07/23/19 20:39 07/23/19 20:39 - Radiology Data Radiology results: report reviewed CT ABDOMEN AND PELVIS WITH IV CONTRAST INDICATION: abd pain. COMPARISON: CT 06/11/2019. TECHNIQUE: All CT scans at this facility use dose modulation, automated exposure control, iterative reconstruction or weight based dosing, when appropriate, to reduce radiation dose to as low as reasonably achievable. FINDINGS: Lung Bases: No significant abnormality. Skeletal System: No acute abnormality. ABDOMEN: Liver: No significant abnormality. Gallbladder: No significant abnormality. Bile Ducts: No significant abnormality. Pancreas: No significant abnormality. Spleen: No significant abnormality. Adrenals: No significant abnormality. Right Kidney: No significant abnormality. Left Kidney: No significant abnormality. Upper GI tract: No significant abnormality. Lymph Nodes: No significant adenopathy. Aorta: No significant abnormality. Additional Findings: No significant abnormality. PELVIS: Colon: The rectum is relatively decompressed. There is questionable mild rectal wall thickening. Urinary Bladder and Distal Ureters: There is mild bladder wall thickening. Appendix: No significant abnormality. Lymph Nodes: No significant adenopathy. Additional Findings: IUD is noted in the uterus in expected position. There is trace fluid in the cul-de-sac. IMPRESSION: 1. Rectum is relatively decompressed, limiting its evaluation. This may account at least in part for mild rectal wall thickening. Proctitis could have this appearance. 2. Mild bladder wall thickening is likely due to bladder decompression. Correlate clinically for mild cystitis. - Medical Decision Making Patient is a 18-year-old female that presents emergency room with multiple complaints. Patient's initial complaint was seizure secondary to missed doses of her Keppra. Patient also complaining of cough and abdominal pain. Patient cough secondary to a URI. Patient complained of nausea, vomiting and abdominal pain. Patient's abdominal pain was lower. Patient had a CT of the abdomen which shows possible proctitis. Patient's symptoms are believed to be secondary to a gastroenteritis. Patient given steroids for her upper respiratory infection. Patient given antibiotics for her gastroenteritis and possible proctitis, colitis. Antibiotics include Cipro and Flagyl. Patient also given Zofran for her nausea vomiting. Patient responded well to therapy in the ER. Patient was stable for discharge. Patient discharged home. Patient given discharge instructions. Patient given medication instructions. Patient tolerated by mouth challenge multiple times prior to discharge. Patient agreeable with plan of care and discharge. Patient was offered admission but patient stated she'd rather go home. GI was consulted for CT findings. - Differential Diagnosis colitis, gastroenteritis, viral syndrome., URI, seizure, Critical care attestation.: If time is entered above; I have spent that time in minutes in the direct care of this critically ill patient, excluding procedure time. ED Disposition Clinical Impression: Proctitis, Seizure, Cough, Gastroenteritis, Noncompliance Abdominal pain Qualifiers: Abdominal location: lower abdomen, unspecified Qualified Code(s): R10.30 - Lower abdominal pain, unspecified Nausea & vomiting Qualifiers: Vomiting type: unspecified Vomiting Intractability: non-intractable Qualified Code(s): R11.2 - Nausea with vomiting, unspecified Upper respiratory infection Qualifiers: URI type: unspecified URI Qualified Code(s): J06.9 - Acute upper respiratory infection, unspecified Disposition: DC-01 TO HOME OR SELFCARE Is pt being admited?: No Does the pt Need Aspirin: No Condition: Stable Instructions: Gastroenteritis (ED), Acute Nausea and Vomiting (ED), Acute A bdominal Pain (ED), Abdominal Pain (ED) Additional Instructions: Patient to follow up with primary care in 2-3 days. Patient to follow up with GI in 2-3 days. Patient to return to ER if condition worsens. Patient increase water. Patient to rest. Patient to eat a brat diet. Patient to take meds as directed. Patient to take Tylenol or ibuprofen when necessary for pain. Prescriptions: Ciprofloxacin HCl [Ciprofloxacin TAB] 500 mg PO Q12HR 10 Days #20 tab metroNIDAZOLE [Flagyl] 500 mg PO Q12HR 10 Days #20 tab methylPREDNISolone [Medrol 4MG DOSEPAK (21 tabs)] 4 mg PO DAILY 6 Days #1 tab.ds.pk Ondansetron [Zofran Odt] 4 mg PO Q6HR PRN #20 tab.rapdis PRN Reason: Nausea And Vomiting Referrals: PRIMARY CARE, [Primary Care Provider] - 2-3 Days ZAC BUI MD [Staff Physician] - 2-3 Days Time of Disposition: 00:01
[2019-07-23 20:58] LABS: Basophils # (Auto) 0.1 K/mm3 (0.0-0.1); Basophils % (Auto) 0.6 % (0.0-1.8); Eosinophils # (Auto) 0.2 K/mm3 (0.0-0.4); Eosinophils % (Auto) 1.4 % (0.0-4.3); Hematocrit 39.8 % (30.3-42.9); Hemoglobin 13.4 gm/dl (10.1-14.3); Lymphocytes # (Auto) 1.8 K/mm3 (1.2-5.4); Lymphocytes % (Auto) 15.4 % (13.4-35.0); Mean Corpuscular HGB Conc 34 % (30-34); Mean Corpuscular Volume 86 fl (79-97); Monocytes % (Auto) 8.2 % (0.0-7.3); Platelet Count 274 K/mm3 (140-440); Red Blood Count 4.65 M/mm3 (3.65-5.03); Red Cell Distribution Width 14.1 % (13.2-15.2)
[2019-07-23] MEDS: HYDROmorphone 1 MG/1 ML INJ IV ONE (21:01)
[2019-07-23] MEDS: ONDANSETRON 4 MG/2 ML INJ IV ONE (21:02)
[2019-07-23] MEDS: SODIUM CHLORIDE 0.9% 1000 ML 1,000 ML IV ONE (21:03)
[2019-07-23] MEDS: levETIRAcetam 1000 MG/NS 0.75% 1,000 MG/100 ML BAG IV ONE (21:04)
[2019-07-23 21:08] LABS: Albumin 3.7 g/dL (3.9-5); BUN/Creatinine Ratio 7; Bilirubin,Direct < 0.2 mg/dL (0-0.2); Blood Urea Nitrogen 5 mg/dL (7-17); Calcium 9.5 mg/dL (8.4-10.2); Hemolysis Index 102
[2019-07-23 21:10] LABS: Alanine Aminotransferase 14 units/L (7-56)
[2019-07-23] MEDS ORDERED: diphenhydrAMINE 50 MG/ML VIAL ONE (22:03)
[2019-07-23 22:04] LABS: Bilirubin,Urine NEG (Negative); Blood,Urine NEG (Negative); Color,Urine Straw (Yellow); Protein,Urine <15 mg/dL mg/dL (Negative); RBC,Urine < 1.0 /HPF (0.0-6.0); Urobilinogen,Urine < 2.0 mg/dL (<2.0)
[2019-07-23] MEDS: diphenhydrAMINE 50 MG/ML VIAL IV ONE (22:05)
--- NOTE | 2019-07-23 22:42 | Cat Scan Report ---
CT ABDOMEN AND PELVIS WITH IV CONTRAST INDICATION: abd pain. COMPARISON: CT 06/11/2019. TECHNIQUE: All CT scans at this facility use dose modulation, automated exposure control, iterative reconstructi on or weight based dosing, when appropriate, to reduce radiation dose to as low as reasonably achieva ble. FINDINGS: Lung Bases: No significant abnormality. Skeletal System: No acute abnormality. ABDOMEN: Liver: No significant abnormality. Gallbladder: No significant abnormality. Bile Ducts: No significant abnormality. Pancreas: No significant abnormality. Spleen: No significant abnormality. Adrenals: No significant abnormality. Right Kidney: No significant abnormality. Left Kidney: No significant abnormality. Upper GI tract: No significant abnormality. Lymph Nodes: No significant adenopathy. Aorta: No significant abnormality. Additional Findings: No significant abnormality. PELVIS: Colon: The rectum is relatively decompressed. There is questionable mild rectal wall thickening. Urinary Bladder and Distal Ureters: There is mild bladder wall thickening. Appendix: No significant abnormality. Lymph Nodes: No significant adenopathy. Additional Findings: IUD is noted in the uterus in expected position. There is trace fluid in the cul -de-sac. IMPRESSION: 1. Rectum is relatively decompressed, limiting its evaluation. This may account at least in part for mild rectal wall thickening. Proctitis could have this appearance. 2. Mild bladder wall thickening is likely due to bladder decompression. Correlate clinically for mil d cystitis. Signer Name: Momo Hargrove MD Signed: 07/23/2019 10:38 PM Workstation Name: [id number]
[2019-07-24] MEDS: methylPREDNISolone Sod Succinate 125 MG/2 ML INJ IV ONE (00:30)
[2019-07-24 01:09] VITALS: BP 110/78
== END 2019-07-24 01:10 | disposition home or self-care (01) ==
LOC: ED 18:23
DX: K62.89 Other specified diseases of anus and rectum (principal); G40.909 Epilepsy, unspecified, not intractable, without status epilepticus; K52.9 Noninfective gastroenteritis and colitis, unspecified; J06.9 Acute upper respiratory infection, unspecified; I10 Essential (primary) hypertension; F12.10 Cannabis abuse, uncomplicated; Z79.899 Other long term (current) drug therapy
CPT/HCPCS: 36415; 74177; 80048; 80076; 81001; 84703; 85025; 96365; 96375; 99284; J1170; J1200; J1953; J2405; J2930; J7030; Q9967

== ENCOUNTER 2019-08-06 14:22 | Emergency (ER) | payer MEDICAID ==
[2019-08-06] MEDS ORDERED: LORazepam 2 MG/ML VIAL ONE (15:03)
[2019-08-06] MEDS ORDERED: levETIRAcetam 500 MG TAB PO ONE ×2 (15:08→15:17)
[2019-08-06] MEDS ORDERED: ONDANSETRON 4 MG/2 ML INJ ONE ×2 (15:08→20:09)
[2019-08-06] MEDS ORDERED: LORazepam 2 MG/ML VIAL IV ONE ×2 (15:16→16:15)
[2019-08-06] MEDS ORDERED: ONDANSETRON 4 MG/2 ML INJ IV ONE ×2 (15:17→20:11)
--- NOTE | 2019-08-06 15:20 | Emergency Department Report ---
ED General Adult HPI - General Chief complaint: Seizure Stated complaint: SEIZURE Time Seen by Provider: 08/06/19 14:55 Source: patient Mode of arrival: Ambulatory Limitations: No Limitations - History of Present Illness Initial comments: The patient presents to the ED with a complaint of a seizure. The patient has a history of seizures and currently on Keppra.The complains of feeling weird like she is going to have another seizure. Patient complains of muscle soreness but denies CANDELARIO,CP,SOB. Patient also complains of nausea vomiting and concern that she might be . -: Sudden Severity scale (0 -10): 0 Improves with: none Worsens with: none Associated Symptoms: denies other symptoms Treatments Prior to Arrival: none - Related Data Home Medications Medication Instructions Recorded Confirmed Last Taken levETIRAcetam [Keppra TAB] 1,000 mg PO QDAY 07/05/19 07/05/19 06/05/19 Previous Rx's Medication Instructions Recorded Last Taken Type Famotidine [Pepcid] 20 mg PO BID #30 tablet 07/06/19 Unknown Rx Potassium Chloride [Klor-Con 8] 8 meq PO QDAY #10 tablet 07/06/19 Unknown Rx levETIRAcetam [Keppra TAB] 750 mg PO BID #60 tablet 07/06/19 Unknown Rx oxyCODONE /ACETAMINOPHEN [Percocet 1 tab PO Q8H PRN #6 tablet 07/06/19 Unknown Rx 5/325 mg] Promethazine [Phenergan] 25 mg NC Q6HR PRN #20 supp.rect 07/07/19 Unknown Rx Dicyclomine [Bentyl] 20 mg PO QID #10 tablet 07/12/19 Unknown Rx Famotidine [Pepcid] 40 mg PO QHS #10 tablet 07/12/19 Unknown Rx Ondansetron [Zofran Odt] 4 mg PO Q8HR #10 tab.rapdis 07/12/19 Unknown Rx levETIRAcetam [Keppra TAB] 500 mg PO BID #60 tablet 07/12/19 Unknown Rx Famotidine [Pepcid] 20 mg PO BID #30 tablet 07/13/19 Unknown Rx levETIRAcetam [Keppra TAB] 500 mg PO BID #90 tablet 07/13/19 Unknown Rx Ondansetron [Zofran ODT TAB] 4 mg PO Q8HR PRN #14 tab.rapdis 07/17/19 Unknown Rx Ciprofloxacin HCl [Ciprofloxacin 500 mg PO Q12HR 10 Days #20 tab 07/23/19 Unk nown Rx TAB] Ondansetron [Zofran Odt] 4 mg PO Q6HR PRN #20 tab.rapdis 07/23/19 Unknown Rx methylPREDNISolone [Medrol 4MG 4 mg PO DAILY 6 Days #1 tab.ds.pk 07/23/19 Unknown Rx DOSEPAK (21 tabs)] metroNIDAZOLE [Flagyl] 500 mg PO Q12HR 10 Days #20 tab 07/23/19 Unknown Rx Promethazine [Phenergan TAB] 25 mg PO Q6HR PRN #20 tab 08/06/19 Unknown Rx Allergies Allergy/AdvReac Type Severity Reaction Status Date / Time No Known Allergies Allergy Unverified 07/13/19 17:21 ED Review of Systems ROS: Stated complaint: SEIZURE Other details as noted in HPI Comment: All other systems reviewed and negative Constitutional: denies: chills, fever Eyes: denies: eye pain, eye discharge, vision change ENT: denies: ear pain, throat pain Respiratory: denies: cough, shortness of breath, wheezing Cardiovascular: denies: chest pain, palpitations Endocrine: no symptoms reported Gastrointestinal: denies: abdominal pain, nausea, diarrhea Genitourinary: denies: urgency, dysuria, discharge Musculoskeletal: denies: back pain, joint swelling, arthralgia Skin: denies: rash, lesions Neurological: denies: headache, weakness, paresthesias Psychiatric: denies: anxiety, depression Hematological/Lymphatic: denies: easy bleeding, easy bruising ED Past Medical Hx - Past Medical History Previous Medical History?: Yes Hx Hypertension: Yes Hx CVA: No Hx Heart Attack/AMI: No Hx Congestive Heart Failure: No Hx Diabetes: No Hx Deep Vein Thrombosis: No Hx Pulmonary Embolism: No Hx GERD: No Hx Liver Disease: No Hx Renal Disease: No Hx Sickle Cell Disease: No Hx Arthritis: No Hx Headaches / Migraines: No Hx Seizures: Yes Hx Kidney Stones: No Hx Psychiatric Treatment: No Hx Asthma: Yes Hx COPD: No Hx Tuberculosis: No Hx Dementia: No Hx HIV: No - Surgical History Past Surgical History?: No Hx Coronary Stent: No Hx Open Heart Surgery: No Hx Pacemaker: No Hx Internal Defibrillator: No Hx Cholecystectomy: No Hx Appendectomy: No Hx Breast Surgery: No - Social History Smoking Status: Never Smoker Substance Use Type: None - Medications Home Medications: Home Medications Medication Instructions Recorded Confirmed Last Taken Type levETIRAcetam [Keppra TAB] 1,000 mg PO QDAY 07/05/19 07/05/19 06/05/19 History Famotidine [Pepcid] 20 mg PO BID #30 tablet 07/06/19 Unknown Rx Potassium Chloride [Klor-Con 8] 8 meq PO QDAY #10 tablet 07/06/19 Unknown Rx levETIRAcetam [Keppra TAB] 750 mg PO BID #60 tablet 07/06/19 Unknown Rx oxyCODONE /ACETAMINOPHEN [Percocet 1 tab PO Q8H PRN #6 tablet 07/06/19 Unknown Rx 5/325 mg] Promethazine [Phenergan] 25 mg NC Q6HR PRN #20 supp.rect 07/07/19 Unknown Rx Dicyclomine [Bentyl] 20 mg PO QID #10 tablet 07/12/19 Unknown Rx Famotidine [Pepcid] 40 mg PO QHS #10 tablet 07/12/19 Unknown Rx Ondansetron [Zofran Odt] 4 mg PO Q8HR #10 tab.rapdis 07/12/19 Unknown Rx levETIRAcetam [Keppra TAB] 500 mg PO BID #60 tablet 07/12/19 Unknown Rx Famotidine [Pepcid] 20 mg PO BID #30 tablet 07/13/19 Unknown Rx levETIRAcetam [Keppra TAB] 500 mg PO BID #90 tablet 07/13/19 Unknown Rx Ondansetron [Zofran ODT TAB] 4 mg PO Q8HR PRN #14 tab.rapdis 07/17/19 Unknown Rx Ciprofloxacin HCl [Ciprofloxacin 500 mg PO Q12HR 10 Days #20 tab 07/23/19 Unknown Rx TAB] Ondansetron [Zofran Odt] 4 mg PO Q6HR PRN #20 tab.rapdis 07/23/19 Unknown Rx methylPREDNISolone [Medrol 4MG 4 mg PO DAILY 6 Days #1 tab.ds.pk 07/23/19 Unknown Rx DOSEPAK (21 tabs)] metroNIDAZOLE [Flagyl] 500 mg PO Q12HR 10 Days #20 tab 01/08/20 Unknown Rx Promethazine [Phenergan TAB] 25 mg PO Q6HR PRN #20 tab 08/06/19 Unknown Rx ED Physical Exam - General Limitations: No Limitations General appearance: alert, in no apparent distress - Head Head exam: Present: atraumatic, normocephalic - Eye Eye exam: Present: normal appearance, PERRL, EOMI - ENT ENT exam: Present: mucous membranes moist - Neck Neck exam: Present: normal inspection - Respiratory Respiratory exam: Present: normal lung sounds bilaterally. Absent: respiratory distress - Cardiovascular Cardiovascular Exam: Present: regular rate, normal rhythm. Absent: systolic murmur, diastolic murmur, rubs, gallop - GI/Abdominal GI/Abdominal exam: Present: soft, normal bowel sounds. Absent: distended, tenderness - Extremities Exam Extremities exam: Present: normal inspection - Back Exam Back exam: Present: normal inspection - Neurological Exam Neurological exam: Present: alert, oriented X3, CN II-XII intact. Absent: motor sensory deficit - Psychiatric Psychiatric exam: Present: normal affect, normal mood - Skin Skin exam: Present: warm, dry, intact, normal color. Absent: rash ED Course Vital Signs 08/06/19 08/06/19 08/06/19 15:26 15:30 15:42 Temperature 98.5 F Pulse Rate 98 H 102 H 98 H Respiratory 14 15 Rate Blood Pressure 202/169 Blood Pressure 190/163 [Right] O2 Sat by Pulse 100 82 L 100 Oximetry 08/06/19 08/06/19 08/06/19 15:45 16:00 16:19 Temperature Pulse Rate 100 H 93 H Respiratory 16 15 Rate Blood Pressure 158/114 164/109 140/67 Blood Pressure [Right] O2 Sat by Pulse Oximetry 08/06/19 08/06/19 08/06/19 16:30 16:46 17:01 Temperature Pulse Rate 101 H 100 H Respiratory 18 17 Rate Blood Pressure 140/67 140/67 109/93 Blood Pressure [Right] O2 Sat by Pulse Oximetry 08/06/19 19:00 Temperature 97.6 F Pulse Rate 93 H Respiratory 18 Rate Blood Pressure Blood Pressure 144/104 [Right] O2 Sat by Pulse 98 Oximetry ED Medical Decision Making - Lab Data Result diagrams: 08/06/19 16:25 08/06/19 16:25 Lab Results 08/06/19 08/06/19 08/06/19 Range/Units 14:49 16:25 16:25 WBC 14.7 H (4.5-11.0) K/mm3 RBC 5.10 H (3.65-5.03) M/mm3 Hgb 14.5 H (10.1-14.3) gm/dl Hct 43.9 H (30.3-42.9) % MCV 86 (79-97) fl MCH 29 (28-32) pg MCHC 33 (30-34) % RDW 14.1 (13.2-15.2) % Plt Count 417 (140-440) K/mm3 Sodium 139 (137-145) mmol/L Potassium 3.9 (3.6-5.0) mmol/L Chloride 102.1 (98-107) mmol/L Carbon Dioxide 18 L (22-30) mmol/L Anion Gap 23 mmol/L BUN 7 (7-17) mg/dL Creatinine 0.8 (0.7-1.2) mg/dL Estimated GFR > 60 ml/min BUN/Creatinine Ratio 9 % Glucose 99 (65-100) mg/dL POC Glucose 101 (70-105) Calcium 10.0 (8.4-10.2) mg/dL Total Bilirubin 0.40 (0.1-1.2) mg/dL AST 24 (5-40) units/L ALT 11 (7-56) units/L Alkaline Phosphatase 71 (35-129) units/L Total Protein 7.6 (6.3-8.2) g/dL Albumin 4.2 (3.9-5) g/dL Albumin/Globulin Ratio 1.2 % HCG, Quant (0-4) mIU/mL Urine Color (Yellow) Urine Turbidity (Clear) Urine pH (5.0-7.0) Ur Specific [place] (1.003-1.030) Urine Protein (Negative) mg/dL Urine Glucose (UA) (Negative) mg/dL Urine Ketones (Negative) mg/dL Urine Blood (Negative) Urine Nitrite (Negative) Urine Bilirubin (Negative) Urine Urobilinogen (<2.0) mg/dL Ur Leukocyte Esterase (Negative) Urine WBC (Auto) (0.0-6.0) /HPF Urine RBC (Auto) (0.0-6.0) /HPF U Epithel Cells (Auto) (0-13.0) /HPF Urine Mucus /HPF Urine Opiates Screen Urine Methadone Screen Ur Barbiturates Screen Ur Phencyclidine Scrn Ur Amphetamines Screen U Benzodiazepines Scrn Urine Cocaine Screen U Marijuana (THC) Screen Drugs of Abuse Note 08/06/19 08/06/19 08/06/19 Range/Units 18:10 18:10 18:46 WBC (4.5-11.0) K/mm3 RBC (3.65-5.03) M/mm3 Hgb (10.1-14.3) gm/dl Hct (30.3-42.9) % MCV (79-97) fl MCH (28-32) pg MCHC (30-34) % RDW (13.2-15.2) % Plt Count (140-440) K/mm3 Sodium (137-145) mmol/L Potassium (3.6-5.0) mmol/L Chloride (98-107) mmol/L Carbon Dioxide (22-30) mmol/L Anion Gap mmol/L BUN (7-17) mg/dL Creatinine (0.7-1.2) mg/dL Estimated GFR ml/min BUN/Creatinine Ratio % Glucose (65-100) mg/dL POC Glucose (70-105) Calcium (8.4-10.2) mg/dL Total Bilirubin (0.1-1.2) mg/dL AST (5-40) units/L ALT (7-56) units/L Alkaline Phosphatase (35-129) units/L Total Protein (6.3-8.2) g/dL Albumin (3.9-5) g/dL Albumin/Globulin Ratio % HCG, Quant < 2 (0-4) mIU/mL Urine Color Yellow (Yellow) Urine Turbidity Slightly-cloudy (Clear) Urine pH 6.0 (5.0-7.0) Ur Specific [place] 1.026 (1.003-1.030) Urine Protein <15 mg/dl (Negative) mg/dL Urine Glucose (UA) Neg (Negative) mg/dL Urine Ketones Tr (Negative) mg/dL Urine Blood Neg (Negative) Urine Nitrite Neg (Negative) Urine Bilirubin Neg (Negative) Urine Urobilinogen < 2.0 (<2.0) mg/dL Ur Leukocyte Esterase Neg (Negative) Urine WBC (Auto) 2.0 (0.0-6.0) /HPF Urine RBC (Auto) 2.0 (0.0-6.0) /HPF U Epithel Cells (Auto) 2.0 (0-13.0) /HPF Urine Mucus 2+ /HPF Urine Opiates Screen Presumptive negative Urine Methadone Screen Presumptive negative Ur Barbiturates Screen Presumptive negative Ur Phencyclidine Scrn Presumptive negative Ur Amphetamines Screen Presumptive negative U Benzodiazepines Scrn Presumptive negative Urine Cocaine Screen Presumptive negative U Marijuana (THC) Screen Presumptive positive Drugs of Abuse Note Disclamer - Radiology Data Radiology results: report reviewed - Medical Decision Making Patient's sister arrived to the bedside and tells me that 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 ED Disposition Clinical Impression: Seizure-like activity, Nausea & vomiting Disposition: DC-01 TO HOME OR SELFCARE Is pt being admited?: No Does the pt Need Aspirin: No Condition: Stable Additional Instructions: return if worse Referrals: PRIMARY CARE, [Primary Care Provider] - 3-5 Days [facility] [Provider Group] - 3-5 Days [facility] [Provider Group] - 3-5 Days Time of Disposition: 21:32
[2019-08-06 16:38] LABS: Hematocrit 43.9 % (30.3-42.9); Hemoglobin 14.5 gm/dl (10.1-14.3); Mean Corpuscular HGB Conc 33 % (30-34); Mean Corpuscular Volume 86 fl (79-97); Platelet Count 417 K/mm3 (140-440); Red Cell Distribution Width 14.1 % (13.2-15.2)
[2019-08-06 17:05] LABS: Alanine Aminotransferase 11 units/L (7-56); Albumin 4.2 g/dL (3.9-5); BUN/Creatinine Ratio 9; Blood Urea Nitrogen 7 mg/dL (7-17); Hemolysis Index 66
[2019-08-06 18:51] LABS: Bilirubin,Urine NEG (Negative); Blood,Urine NEG (Negative); Color,Urine Yellow (Yellow); Mucus,Urine 2+ /HPF; Protein,Urine <15 mg/dL mg/dL (Negative); Urobilinogen,Urine < 2.0 mg/dL (<2.0)
[2019-08-06 18:54] LABS: Amphetamine Screen,Urine PRESUMPTIVE NEGATIVE; Benzodiazepines Screen,Urine PRESUMPTIVE NEGATIVE; Cocaine Screen,Urine PRESUMPTIVE NEGATIVE; Methadone Screen,Urine PRESUMPTIVE NEGATIVE; Opiate Screen,Urine PRESUMPTIVE NEGATIVE
[2019-08-06 19:07] LABS: Cannabinoid Screen,Urine PRESUMPTIVE POSITIVE
[2019-08-06 20:02] VITALS: BP 144/104
[2019-08-06] MEDS ORDERED: diphenhydrAMINE 50 MG/ML VIAL ONE (20:10)
[2019-08-06] MEDS ORDERED: diphenhydrAMINE 50 MG/ML VIAL IV ONE (20:11)
--- NOTE | 2019-08-06 21:21 | XRay Report ---
ABDOMEN 3 VIEW(S) WITH CHEST INDICATION / CLINICAL INFORMATION: MAIN: abdominal pain; triage reports pt had witnessed tremors in triage. pt Awake, oriented x3. repor ts taking Keppra for sz.; best images possible, pat. uncooperative and moving around during the exam. COMPARISON: None available. FINDINGS: BOWEL: No dilated bowel. FREE AIR / EXTRALUMINAL GAS: None seen. CALCIFICATIONS: No significant abnormal calcifications. ADDITIONAL FINDINGS: IUD is within the pelvis LUNGS: lungs show no significant abnormality. No evidence of a pneumothorax or pleural effusion. SKELETAL STRUCTURES: No significant abnormality. IMPRESSION: 1. No significant abnormality. Signer Name: Roger Tenorio MD Signed: 08/06/2019 9:17 PM Workstation Name: [id number]
== END 2019-08-06 21:41 | disposition home or self-care (01) ==
LOC: ED 14:22
DX: G40.909 Epilepsy, unspecified, not intractable, without status epilepticus (principal); R11.2 Nausea with vomiting, unspecified; I10 Essential (primary) hypertension; J45.909 Unspecified asthma, uncomplicated; Z79.899 Other long term (current) drug therapy
CPT/HCPCS: 36415; 74022; 80053; 80307; 81001; 82962; 84702; 85027; 96374; 96375; 96376; 99284; J1200; J2060; J2405

== ENCOUNTER 2019-08-07 07:24 | Emergency (ER) | payer MEDICAID ==
[2019-08-07] MEDS ORDERED: ONDANSETRON 4 MG/2 ML INJ ONE (07:35)
[2019-08-07] MEDS ORDERED: ONDANSETRON 4 MG/2 ML INJ IV ONE ×2 (07:59→12:41)
[2019-08-07] MEDS ORDERED: SODIUM CHLORIDE 0.9% 1000 ML 1,000 ML IV ONE ×2 (08:14→10:53)
[2019-08-07] MEDS ORDERED: LORazepam 2 MG/ML VIAL ONE (08:24)
[2019-08-07] MEDS ORDERED: LORazepam 2 MG/ML VIAL IV ONE ×2 (08:24→12:52)
[2019-08-07 08:35] LABS: Basophils % (Auto) 0.2 % (0.0-1.8); Hematocrit 42.4 % (30.3-42.9); Hemoglobin 14.3 gm/dl (10.1-14.3); Lymphocytes # (Auto) 1.3 K/mm3 (1.2-5.4); Lymphocytes % (Auto) 7.3 % (13.4-35.0); Mean Corpuscular HGB Conc 34 % (30-34); Mean Corpuscular Volume 84 fl (79-97); Monocytes # (Auto) 1.3 K/mm3 (0.0-0.8); Monocytes % (Auto) 7.4 % (0.0-7.3); Platelet Count 417 K/mm3 (140-440); Red Blood Count 5.04 M/mm3 (3.65-5.03)
[2019-08-07 08:52] LABS: Creatine Kinase MB 1.1 ng/mL (0.0-4.0)
[2019-08-07 08:54] LABS: Alanine Aminotransferase 18 units/L (7-56); Albumin 4.7 g/dL (3.9-5); BUN/Creatinine Ratio 9; Blood Urea Nitrogen 8 mg/dL (7-17); Calcium 10.6 mg/dL (8.4-10.2); Hemolysis Index 2
[2019-08-07 09:41] LABS: Bilirubin,Direct < 0.2 mg/dL (0-0.2)
--- NOTE | 2019-08-07 10:46 | Emergency Department Report ---
ED General Adult HPI - General Chief complaint: Nausea/Vomiting/Diarrhea Stated complaint: SEIZURE LIKE ACTIVITY Time Seen by Provider: 08/07/19 08:02 Source: EMS Mode of arrival: Stretcher Limitations: No Limitations - History of Present Illness Initial comments: This is a 18-year-old female that has been to the emergency department at least 4 times this month. According to family or significant other at the bedside she has seen a primary care doctor 1 in [place]. She has a history of pseudoseizures and "cyclic vomiting". She also has a history of marijuana dependency. The nurse reports to me behavior that is consistent with pseudoseizures when she was at the bedside. Nurse explains that the patient was completely lucid in between episodes of shaking which did not look like organized tonic clonic movements. She had given the patient Zofran for nausea and vomiting. The patient is not providing any useful information. She is essentially writhing voluntarily on the gurney. She will follow commands. She is choosing not to communicate verbally. Apparently she had recurrent vomiting this a.m. There was no apparent sign of GI bleeding. Patient was seen in the emergency department in the early a.m. hours. The informant with the patient states that the doctor told him that the patient needed to have a bowel movement based on the x-ray. Review of the x-rays reports do not indicate any abnormal findings. There is no specific complaint of abdominal pain that I am aware of. -: hour(s) - Related Data Home Medications Medication Instructions Recorded Confirmed Last Taken levETIRAcetam [Keppra TAB] 1,000 mg PO QDAY 07/05/19 07/05/19 06/05/19 Previous Rx's Medication Instructions Recorded Last Taken Type Famotidine [Pepcid] 20 mg PO BID #30 tablet 07/06/19 Unknown Rx Potassium Chloride [Klor-Con 8] 8 meq PO QDAY #10 tablet 07/06/19 Unknown Rx levETIRAcetam [Keppra TAB] 750 mg PO BID #60 tablet 07/06/19 Unknown Rx oxyCODONE /ACETAMINOPHEN [Percocet 1 tab PO Q8H PRN #6 tablet 07/06/19 Unknown Rx 5/325 mg] Promethazine [Phenergan] 25 mg NE Q6HR PRN #20 supp.rect 07/07/19 Unknown Rx Dicyclomine [Bentyl] 20 mg PO QID #10 tablet 07/12/19 Unknown Rx Famotidine [Pepcid] 40 mg PO QHS #10 tablet 07/12/19 Unknown Rx levETIRAcetam [Keppra TAB] 500 mg PO BID #60 tablet 07/12/19 Unknown Rx Famotidine [Pepcid] 20 mg PO BID #30 tablet 07/13/19 Unknown Rx levETIRAcetam [Keppra TAB] 500 mg PO BID #90 tablet 07/13/19 Unknown Rx Ondansetron [Zofran ODT TAB] 4 mg PO Q8HR PRN #14 tab.rapdis 07/17/19 Unknown Rx Ciprofloxacin HCl [Ciprofloxacin 500 mg PO Q12HR 10 Days #20 tab 07/23/19 Unknown Rx TAB] Ondansetron [Zofran Odt] 4 mg PO Q6HR PRN #20 tab.rapdis 07/23/19 Unknown Rx methylPREDNISolone [Medrol 4MG 4 mg PO DAILY 6 Days #1 tab.ds.pk 07/23/19 Unknown Rx DOSEPAK (21 tabs)] metroNIDAZOLE [Flagyl] 500 mg PO Q12HR 10 Days #20 tab 07/23/19 Unknown Rx Promethazine [Phenergan TAB] 25 mg PO Q6HR PRN #20 tab 08/06/19 Unknown Rx Lansoprazole [Prevacid] 15 mg PO BID #30 cap 08/07/19 Unknown Rx Ondansetron [Zofran ODT TAB] 4 mg PO Q8HR #10 tab.rapdis 08/07/19 Unknown Rx traMADoL [Ultram 50 MG tab] 50 mg PO Q6HR PRN #10 tablet 08/07/19 Unknown Rx Allergies Allergy/AdvReac Type Severity Reaction Status Date / Time No Known Allergies Allergy Unverified 07/13/19 17:21 ED Review of Systems ROS: Stated complaint: SEIZURE LIKE ACTIVITY Other details as noted in HPI Comment: Unobtainable due to pts medical conditions ED Past Medical Hx - Past Medical History Previous Medical History?: Yes Hx Hypertension: Yes Hx CVA: No Hx Heart Attack/AMI: No Hx Congestive Heart Failure: No Hx Diabetes: No Hx Deep Vein Thrombosis: No Hx Pulmonary Embolism: No Hx GERD: No Hx Liver Disease: No Hx Renal Disease: No Hx Sickle Cell Disease: No Hx Arthritis: No Hx Headaches / Migraines: No Hx Seizures: Yes Hx Kidney Stones: No Hx Psychiatric Treatment: No Hx Asthma: Yes Hx COPD: No Hx Tuberculosis: No Hx Dementia: No Hx HIV: No Additional medical history: cyclic vomiting syndrome - Surgical History Past Surgical History?: No Hx Coronary Stent: No Hx Open Heart Surgery: No Hx Pacemaker: No Hx Internal Defibrillator: No Hx Cholecystectomy: No Hx Appendectomy: No Hx Breast Surgery: No - Social History Smoking Status: Unknown if ever smoked - Medications Home Medications: Home Medications Medication Instructions Recorded Confirmed Last Taken Type levETIRAcetam [Keppra TAB] 1,000 mg PO QDAY 07/05/19 07/05/19 06/05/19 History Famotidine [Pepcid] 20 mg PO BID #30 tablet 07/06/19 Unknown Rx Potassium Chloride [Klor-Con 8] 8 meq PO QDAY #10 tablet 07/06/19 Unknown Rx levETIRAcetam [Keppra TAB] 750 mg PO BID #60 tablet 07/06/19 Unknown Rx oxyCODONE /ACETAMINOPHEN [Percocet 1 tab PO Q8H PRN #6 tablet 07/06/19 Unknown Rx 5/325 mg] Promethazine [Phenergan] 25 mg NE Q6HR PRN #20 supp.rect 07/07/19 Unknown Rx Dicyclomine [Bentyl] 20 mg PO QID #10 tablet 07/12/19 Unknown Rx Famotidine [Pepcid] 40 mg PO QHS #10 tablet 07/12/19 Unknown Rx levETIRAcetam [Keppra TAB] 500 mg PO BID #60 tablet 07/12/19 Unknown Rx Famotidine [Pepcid] 20 mg PO BID #30 tablet 07/13/19 Unknown Rx levETIRAcetam [Keppra TAB] 500 mg PO BID #90 tablet 07/13/19 Unknown Rx Ondansetron [Zofran ODT TAB] 4 mg PO Q8HR PRN #14 tab.rapdis 07/17/19 Unknown Rx Ciprofloxacin HCl [Ciprofloxacin 500 mg PO Q12HR 10 Days #20 tab 07/23/19 Unknown Rx TAB] Ondansetron [Zofran Odt] 4 mg PO Q6HR PRN #20 tab.rapdis 07/23/19 Unknown Rx methylPREDNISolone [Medrol 4MG 4 mg PO DAILY 6 Days #1 tab.ds.pk 07/23/19 Unknown Rx DOSEPAK (21 tabs)] metroNIDAZOLE [Flagyl] 500 mg PO Q12HR 10 Days #20 tab 07/23/19 Unknown Rx Promethazine [Phenergan TAB] 25 mg PO Q6HR PRN #20 tab 08/06/19 Unknown Rx Lansoprazole [Prevacid] 15 mg PO BID #30 cap 08/07/19 Unknown Rx Ondansetron [Zofran ODT TAB] 4 mg PO Q8HR #10 tab.rapdis 08/07/19 Unknown Rx traMADoL [Ultram 50 MG tab] 50 mg PO Q6HR PRN #10 tablet 08/07/19 Unknown Rx ED Physical Exam - General Limitations: Altered Mental Status General appearance: other (writhing but able to stop on encouragement) - Head Head exam: Present: atraumatic, normocephalic - Eye Eye exam: Present: normal appearance - ENT ENT exam: Present: mucous membranes moist - Neck Neck exam: Present: normal inspection. Absent: tenderness, meningismus - Respiratory Respiratory exam: Present: normal lung sounds bilaterally. Absent: respiratory distress - Cardiovascular Cardiovascular Exam: Present: regular rate, normal rhythm. Absent: systolic murmur, diastolic murmur, rubs, gallop - GI/Abdominal GI/Abdominal exam: Present: soft. Absent: distended, tenderness, guarding, rebound, rigid - Extremities Exam Extremities exam: Present: normal inspection - Back Exam Back exam: Present: normal inspection - Neurological Exam Neurological exam: Present: altered, CN II-XII intact (limited examination by observation). Absent: motor sensory deficit - Psychiatric Psychiatric exam: Present: agitated, flat affect - Skin Skin exam: Present: warm, dry, intact, normal color. Absent: rash ED Course Vital Signs 08/07/19 08/07/19 07:49 10:32 Temperature 98.2 F Pulse Rate 102 H 76 Respiratory 16 16 Rate Blood Pressure 154/72 Blood Pressure 147/86 [Left] O2 Sat by Pulse 100 98 Oximetry - Reevaluation(s) Reevaluation #1: Patient was given Ativan and IV fluids. She is noted to have an elevated white blood cell count and anion gap. I think this is likely secondary to vomiting and dehydration. However I will check a lactic acid level and proceed from there. The patient has had several elevated white blood counts in the past and a CT scan on 07/23/2019 which demonstrated no significant abnormality. I would like to avoid repeat radiation exposure if at all possible. 08/07/19 10:50 Reevaluation #2: Patient continues to be largely non-verbal and noncommunicative. On reexamination she is somewhat feverishly tech stating, that is at a very rapid rate. She does not make eye contact. She is resting comfortably. I discussed her follow-up with the gentleman at the bedside who is in agreement with discharge. They are encouraged to follow-up with GI. I will give a prescription for Ultram, lansoprazole and Zofran. 08/07/19 13:54 ED Medical Decision Making - Lab Data Result diagrams: 08/07/19 08:19 08/07/19 12:03 Laboratory Results - last 24 hr 08/07/19 08/07/19 08/07/19 07:43 08:19 08:19 WBC 18.1 H RBC 5.04 H Hgb 14.3 Hct 42.4 MCV 84 MCH 28 MCHC 34 RDW 14.0 Plt Count 417 Lymph % (Auto) 7.3 L [place] % (Auto) 7.4 H Eos % (Auto) 0.0 Baso % (Auto) 0.2 Lymph # 1.3 [place] # 1.3 H Eos # 0.0 Baso # 0.0 Seg Neutrophils % 85.1 H Seg Neutrophils # 15.4 H Sodium 141 Potassium 3.7 Chloride 98.4 Carbon Dioxide 19 L Anion Gap 27 BUN 8 Creatinine 0.9 Estimated GFR > 60 BUN/Creatinine Ratio 9 Glucose 144 H POC Glucose 137 H Calcium 10.6 H Magnesium 1.70 Total Bilirubin 0.50 Direct Bilirubin < 0.2 Indirect Bilirubin 0.3 AST 26 ALT 18 Alkaline Phosphatase 77 Total Creatine Kinase 111 CK-MB (CK-2) 1.1 CK-MB (CK-2) Rel Index 0.9 Total Protein 7.8 Albumin 4.7 Albumin/Globulin Ratio 1.5 Laboratory Results - last 24 hr 08/07/19 08/07/19 08/07/19 07:43 08:19 08:19 WBC 18.1 H RBC 5.04 H Hgb 14.3 Hct 42.4 MCV 84 MCH 28 MCHC 34 RDW 14.0 Plt Count 417 Lymph % (Auto) 7.3 L [place] % (Auto) 7.4 H Eos % (Auto) 0.0 Baso % (Auto) 0.2 Lymph # 1.3 [place] # 1.3 H Eos # 0.0 Baso # 0.0 Seg Neutrophils % 85.1 H Seg Neutrophils # 15.4 H Sodium 141 Potassium 3.7 Chloride 98.4 Carbon Dioxide 19 L Anion Gap 27 BUN 8 Creatinine 0.9 Estimated GFR > 60 BUN/Creatinine Ratio 9 Glucose 144 H POC Glucose 137 H Calcium 10.6 H Magnesium 1.70 Total Bilirubin 0.50 Direct Bilirubin < 0.2 Indirect Bilirubin 0.3 AST 26 ALT 18 Alkaline Phosphatase 77 Total Creatine Kinase 111 CK-MB (CK-2) 1.1 CK-MB (CK-2) Rel Index 0.9 Total Protein 7.8 Albumin 4.7 Albumin/Globulin Ratio 1.5 Laboratory Results - last 24 hr 08/07/19 08/07/19 08/07/19 07:43 08:19 08:19 WBC 18.1 H RBC 5.04 H Hgb 14.3 Hct 42.4 MCV 84 MCH 28 MCHC 34 RDW 14.0 Plt Count 417 Lymph % (Auto) 7.3 L [place] % (Auto) 7.4 H Eos % (Auto) 0.0 Baso % (Auto) 0.2 Lymph # 1.3 [place] # 1.3 H Eos # 0.0 Baso # 0.0 Seg Neutrophils % 85.1 H Seg Neutrophils # 15.4 H Sodium 141 Potassium 3.7 Chloride 98.4 Carbon Dioxide 19 L Anion Gap 27 BUN 8 Creatinine 0.9 Estimated GFR > 60 BUN/Creatinine Ratio 9 Glucose 144 H POC Glucose 137 H Calcium 10.6 H Magnesium 1.70 Total Bilirubin 0.50 Direct Bilirubin < 0.2 Indirect Bilirubin 0.3 AST 26 ALT 18 Alkaline Phosphatase 77 Total Creatine Kinase 111 CK-MB (CK-2) 1.1 CK-MB (CK-2) Rel Index 0.9 Total Protein 7.8 Albumin 4.7 Albumin/Globulin Ratio 1.5 Laboratory Results - last 24 hr 08/07/19 08/07/19 08/07/19 07:43 08:19 08:19 WBC 18.1 H RBC 5.04 H Hgb 14.3 Hct 42.4 MCV 84 MCH 28 MCHC 34 RDW 14.0 Plt Count 417 Lymph % (Auto) 7.3 L [place] % (Auto) 7.4 H Eos % (Auto) 0.0 Baso % (Auto) 0.2 Lymph # 1.3 [place] # 1.3 H Eos # 0.0 Baso # 0.0 Seg Neutrophils % 85.1 H Seg Neutrophils # 15.4 H Sodium 141 Potassium 3.7 Chloride 98.4 Carbon Dioxide 19 L Anion Gap 27 BUN 8 Creatinine 0.9 Estimated GFR > 60 BUN/Creatinine Ratio 9 Glucose 144 H POC Glucose 137 H Lactic Acid Calcium 10.6 H Magnesium 1.70 Total Bilirubin 0.50 Direct Bilirubin < 0.2 Indirect Bilirubin 0.3 AST 26 ALT 18 Alkaline Phosphatase 77 Total Creatine Kinase 111 CK-MB (CK-2) 1.1 CK-MB (CK-2) Rel Index 0.9 Total Protein 7.8 Albumin 4.7 Albumin/Globulin Ratio 1.5 08/07/19 12:03 WBC RBC Hgb Hct MCV MCH MCHC RDW Plt Count Lymph % (Auto) [place] % (Auto) Eos % (Auto) Baso % (Auto) Lymph # [place] # Eos # Baso # Seg Neutrophils % Seg Neutrophils # Sodium Potassium Chloride Carbon Dioxide Anion Gap BUN Creatinine Estimated GFR BUN/Creatinine Ratio Glucose POC Glucose Lactic Acid 1.00 Calcium Magnesium Total Bilirubin Direct Bilirubin Indirect Bilirubin AST ALT Alkaline Phosphatase Total Creatine Kinase CK-MB (CK-2) CK-MB (CK-2) Rel Index Total Protein Albumin Albumin/Globulin Ratio Critical care attestation.: If time is entered above; I have spent that time in minutes in the direct care of this critically ill patient, excluding procedure time. ED Disposition Clinical Impression: Cyclic vomiting syndrome Disposition: DC-01 TO HOME OR SELFCARE Is pt being admited?: No Does the pt Need Aspirin: No Condition: Stable Instructions: Acute Nausea and Vomiting (ED) Additional Instructions: Clear fluids and advance as tolerated. I would strongly recommend that you call [place] [facility] for further care and evaluation of your condition. Return as needed to the emergency department any acute change or worsening. Prescriptions: Lansoprazole [Prevacid] 15 mg PO BID #30 cap traMADoL [Ultram 50 MG tab] 50 mg PO Q6HR PRN #10 tablet PRN Reason: Pain Ondansetron [Zofran ODT TAB] 4 mg PO Q8HR #10 tab.rapdis Referrals: PRIMARY CARE, [Primary Care Provider] - 3-5 Days [facility] [Provider Group] - 2-3 Days [facility] [Provider Group] - 3-5 Days Time of Disposition: 13:56
[2019-08-07] MEDS ORDERED: MORPHINE 2 MG/1 ML INJ IV ONE (12:41)
[2019-08-07 13:57] LABS: BUN/Creatinine Ratio TNR; Blood Urea Nitrogen TNR mg/dL (7-17)
[2019-08-07 13:58] LABS: Calcium TNR mg/dL (8.4-10.2); Hemolysis Index TNR
[2019-08-07 14:36] VITALS: BP 130/66
== END 2019-08-07 14:25 | disposition home or self-care (01) ==
LOC: ED 07:24
DX: R11.15 Cyclical vomiting syndrome unrelated to migraine (principal); J45.909 Unspecified asthma, uncomplicated; I10 Essential (primary) hypertension; Z79.899 Other long term (current) drug therapy
CPT/HCPCS: 36415; 80048; 80076; 82140; 82550; 82553; 82962; 83735; 85025; 87040; 96361; 96374; 96375; 96376; 99284; J2060; J2270; J2405; J7030

== ENCOUNTER 2019-08-08 15:07 | Emergency (ER) | payer MEDICAID | END 2019-08-08 15:30 | disposition left against medical advice (07) | LOC: ED 15:07 | DX: R56.9 Unspecified convulsions (principal); Z53.21 Procedure and treatment not carried out due to patient leaving prior to being seen by health care provider ==

== ENCOUNTER 2019-09-05 15:47 | Emergency (ER) | payer MEDICAID ==
[2019-09-05] MEDS ORDERED: ONDANSETRON 4 MG/2 ML INJ IV ONE (16:58)
[2019-09-05] MEDS ORDERED: SODIUM CHLORIDE 0.9% 1000 ML 1,000 ML IV ONE (16:58)
--- NOTE | 2019-09-05 17:02 | Emergency Department Report ---
HPI - General Chief Complaint: Seizure Time Seen by Provider: 09/05/19 16:52 - HPI HPI: 18-year-old -[place] female presents to the emergency department via EMS from home with complaint of having some seizure-like activity at home and with EMS, as well as the complaint of some abdominal pain, nausea and vomiting. She received a dose of Versed with EMS. Patient says that she vomited earlier today with "big clots." The patient was recently at [facility] twice for similar symptoms and the patient says "they just gave me drugs to make me go to sleep and when I wake up they discharge me." The patient was seen here 4 different times last month, July, for similar symptoms. She appears to have some history of seizure disorder versus pseudoseizures. The patient apparently does take Keppra but there have been multiple instances where family members are at bedside and say that she has a history of pseudoseizures since she was a child. There also appears to be some report of cyclic vomiting syndrome. Currently the patient is awake, alert, oriented. ED Past Medical Hx - Past Medical History Previous Medical History?: Yes Hx Hypertension: Yes Hx CVA: No Hx Heart Attack/AMI: No Hx Congestive Heart Failure: No Hx Diabetes: No Hx Deep Vein Thrombosis: No Hx Pulmonary Embolism: No Hx GERD: No Hx Liver Disease: No Hx Renal Disease: No Hx Sickle Cell Disease: No Hx Arthritis: No Hx Headaches / Migraines: No Hx Seizures: Yes Hx Kidney Stones: No Hx Psychiatric Treatment: No Hx Asthma: Yes Hx COPD: No Hx Tuberculosis: No Hx Dementia: No Hx HIV: No Additional medical history: cyclic vomiting syndrome - Surgical History Past Surgical History?: No Hx Coronary Stent: No Hx Open Heart Surgery: No Hx Pacemaker: No Hx Internal Defibrillator: No Hx Cholecystectomy: No Hx Appendectomy: No Hx Breast Surgery: No - Social History Smoking Status: Never Smoker Substance Use Type: None - Medications Home Medications: Home Medications Medication Instructions Recorded Confirmed Last Taken Type levETIRAcetam [Keppra TAB] 1,000 mg PO QDAY 07/05/19 07/05/19 06/05/19 History Famotidine [Pepcid] 20 mg PO BID #30 tablet 07/06/19 Unknown Rx Potassium Chloride [Klor-Con 8] 8 meq PO QDAY #10 tablet 12/22/19 Unknown Rx levETIRAcetam [Keppra TAB] 750 mg PO BID #60 tablet 07/06/19 Unknown Rx oxyCODONE /ACETAMINOPHEN [Percocet 1 tab PO Q8H PRN #6 tablet 07/06/19 Unknown Rx 5/325 mg] Promethazine [Phenergan] 25 mg ME Q6HR PRN #20 supp.rect 07/07/19 Unknown Rx Dicyclomine [Bentyl] 20 mg PO QID #10 tablet 07/12/19 Unknown Rx Famotidine [Pepcid] 40 mg PO QHS #10 tablet 07/12/19 Unknown Rx levETIRAcetam [Keppra TAB] 500 mg PO BID #60 tablet 07/12/19 Unknown Rx Famotidine [Pepcid] 20 mg PO BID #30 tablet 07/13/19 Unknown Rx levETIRAcetam [Keppra TAB] 500 mg PO BID #90 tablet 07/13/19 Unknown Rx Ondansetron [Zofran ODT TAB] 4 mg PO Q8HR PRN #14 tab.rapdis 07/17/19 Unknown Rx Ciprofloxacin HCl [Ciprofloxacin 500 mg PO Q12HR 10 Days #20 tab 07/23/19 Unknown Rx TAB] Ondansetron [Zofran Odt] 4 mg PO Q6HR PRN #20 tab.rapdis 07/23/19 Unknown Rx methylPREDNISolone [Medrol 4MG 4 mg PO DAILY 6 Days #1 tab.ds.pk 07/23/19 Unknown Rx DOSEPAK (21 tabs)] metroNIDAZOLE [Flagyl] 500 mg PO Q12HR 10 Days #20 tab 07/23/19 Unknown Rx Promethazine [Phenergan TAB] 25 mg PO Q6HR PRN #20 tab 08/06/19 Unknown Rx Lansoprazole [Prevacid] 15 mg PO BID #30 cap 08/07/19 Unknown Rx Ondansetron [Zofran ODT TAB] 4 mg PO Q8HR #10 tab.rapdis 08/07/19 Unknown Rx traMADoL [Ultram 50 MG tab] 50 mg PO Q6HR PRN #10 tablet 08/07/19 Unknown Rx ED Review of Systems ROS: Stated complaint: SEIZURE Other details as noted in HPI Comment: All other systems reviewed and negative Constitutional: denies: chills, fever Eyes: denies: eye pain, vision change ENT: denies: ear pain, throat pain Respiratory: denies: cough, shortness of breath Cardiovascular: denies: chest pain, palpitations Gastrointestinal: abdominal pain, nausea, vomiting Genitourinary: denies: dysuria, discharge Musculoskeletal: denies: back pain, arthralgia Skin: denies: rash, lesions Neurological: headache. denies: weakness, numbness Physical Exam - Physical Exam Physical Exam: GENERAL: The patient is well-developed well-nourished. HENT: Normocephalic. Atraumatic. Patient has moist mucous membranes. EYES: Extraocular motions are intact. NECK: Supple. Trachea is midline. CHEST/LUNGS: Clear to auscultation. There is no respiratory distress noted. HEART/CARDIOVASCULAR: Regular. There is no tachycardia. There is no murmur. ABDOMEN: Abdomen is soft. Mild abdominal tenderness to palpation. No guarding. Patient has normal bowel sounds. There is no abdominal distention. SKIN: Skin is warm and dry. NEURO: The patient is awake, alert, and oriented. The patient is cooperative. The patient has no focal neurologic deficits. Normal speech. Cranial nerves II through XII grossly intact. MUSCULOSKELETAL: There is no tenderness or deformity. There is no limitation r adolfo of motion. There is no evidence of acute injury. ED Medical Decision Making - Lab Data Result diagrams: 09/05/19 17:13 09/05/19 17:13 - Radiology Data Radiology results: image reviewed interpreted by me: Chest x-ray does not show any acute process. There are no pleural effusions, obvious pneumonia and there is no pneumothorax. Abdominal x-ray shows nonspecific nonobstructive bowel gas. - Medical Decision Making This patient presents to the emergency department with a complaint of a seizure prior to arrival, some nausea and vomiting and some generalized abdominal pain. The patient has been seen here multiple times in the recent past for similar symptoms. In the middle of last month she had a CT scan of the abdomen pelvis that did not show any acute process. The patient also says that she has been seen at [facility] twice within the last week. On examination she does not have any focal, motor or sensory deficits and her cranial nerves are intact. She has some mild abdominal tenderness to palpation but the abdomen is soft, nontoxic in appearance and nondistended. Her labs have been unremarkable including CBC, metabolic panel, urinalysis, and test. The patient was loaded with a gram of Keppra. At the beginning of her ED course the patient had some seizure-like activity that may have been true seizure versus pseudoseizure. She was given 1 mg of Ativan. There was a very short postictal state, if 1 at all, between these seizures. However, once this stopped, the patient did not amin ve any return of seizure-like activity and has gone for about 3 to 4 hours without any seizure-like activity and has remained awake, alert and oriented. A chest and abdominal x-ray were completed that did not show any acute processes. Her vital signs been stable throughout her ED course. The patient was seen ambulatory in the emergency department and both appears and feels stable. She says that she has good outpatient follow-up with neurology and has been instructed to see them in the next few days. She was also given a referral for [place] [facility] secondary to her chronic abdominal pains. She will return to the ER with any worsening of her symptoms or any acute distress. - Differential Diagnosis Seizure, pseudoseizure, gastritis, colitis Critical Care Time: No Critical care attestation.: If time is entered above; I have spent that time in minutes in the direct care of this critically ill patient, excluding procedure time. ED Disposition Clinical Impression: Seizure-like activity Abdominal pain Qualifiers: Abdominal location: unspecified location Qualified Code(s): R10.9 - Unspecified abdominal pain Disposition: - TO HOME OR SELFCARE Is pt being admited?: No Condition: Stable Instructions: Abdominal Pain (ED), Recurrent Seizures Adult (ED) Additional Instructions: Please follow-up with your primary care physician and neurologist in the next few days. I am giving you a referral for [place] [facility] to follow-up regarding your abdominal pains. Please take your seizure medications as prescribed. Return to the emergency department with any worsening of your symptoms or any acute distress. Referrals: PRIMARY MD SACHI [Primary Care Provider] - 2-3 Days [facility] [Provider Group] - 2-3 Days Neurology, Your [Other] - 2-3 Days Time of Disposition: 21:10
[2019-09-05] MEDS ORDERED: levETIRAcetam 1000 MG/NS 0.75% 1,000 MG/100 ML BAG IV ONE (17:42)
[2019-09-05] MEDS ORDERED: LORazepam 2 MG/ML VIAL IV ONE (17:43)
[2019-09-05 17:44] LABS: Basophils # (Auto) 0.2 K/mm3 (0.0-0.1); Basophils % (Auto) 2.6 % (0.0-1.8); Eosinophils # (Auto) 0.2 K/mm3 (0.0-0.4); Hematocrit 40.2 % (30.3-42.9); Hemoglobin 13.9 gm/dl (10.1-14.3); Lymphocytes # (Auto) 1.7 K/mm3 (1.2-5.4); Lymphocytes % (Auto) 20.4 % (13.4-35.0); Mean Corpuscular HGB Conc 35 % (30-34); Mean Corpuscular Volume 89 fl (79-97); Monocytes # (Auto) 0.4 K/mm3 (0.0-0.8); Monocytes % (Auto) 4.6 % (0.0-7.3); Platelet Count 292 K/mm3 (140-440); Red Blood Count 4.53 M/mm3 (3.65-5.03); Red Cell Distribution Width 16.2 % (13.2-15.2)
[2019-09-05 17:59] LABS: Alanine Aminotransferase 15 units/L (7-56); Albumin 4.3 g/dL (3.9-5); BUN/Creatinine Ratio 6; Blood Urea Nitrogen 4 mg/dL (7-17); Calcium 9.6 mg/dL (8.4-10.2); Hemolysis Index 14
--- NOTE | 2019-09-05 19:32 | XRay Report ---
ACUTE ABDOMEN SERIES 3 VIEWS 1908 INDICATION: abd pain COMPARISON: AP chest 08/12/2019 FINDINGS: Lung malone are clear. No pneumoperitoneum is noted. Bowel gas pattern is unremarkable. No obvious urinary tract calculi are seen. Small calcification in the lower left pelvis probably is vasc ular. An IUD is seen in the central pelvis. Signer Name: Michael Garces MD Signed: 09/05/2019 7:28 PM Workstation Name: [id number]
[2019-09-05] MEDS ORDERED: DICYCLOMINE 20 MG TAB PO ONE (20:08)
[2019-09-05 21:42] VITALS: BP 123/74
== END 2019-09-05 21:20 | disposition home or self-care (01) ==
LOC: ED 15:47
DX: G40.909 Epilepsy, unspecified, not intractable, without status epilepticus (principal); R10.9 Unspecified abdominal pain; I10 Essential (primary) hypertension; J45.909 Unspecified asthma, uncomplicated; Z79.899 Other long term (current) drug therapy
CPT/HCPCS: 36415; 74022; 80053; 82550; 83690; 84146; 84703; 85025; 96365; 96375; 99284; J1953; J2060; J2405; J7030

== ENCOUNTER 2019-11-18 19:13 | Emergency (ER) | payer MEDICAID ==
[2019-11-18] MEDS ORDERED: SODIUM CHLORIDE 0.9% 1000 ML 1,000 ML IV ONE (20:18)
[2019-11-18] MEDS ORDERED: METOCLOPRAMIDE 10 MG/2 ML INJ IV ONE (20:18)
--- NOTE | 2019-11-18 20:18 | Emergency Department Report ---
HPI - General Chief Complaint: Nausea/Vomiting/Diarrhea Time Seen by Provider: 11/18/19 19:54 - HPI HPI: 18-year-old female presents to the emergency department via EMS from home with complaint of nausea and vomiting and generalized abdominal pain going on since this morning. I have seen this patient previously in August of this year for similar symptoms, as well as some pseudoseizures at that time. The patient has a history of pseudoseizures, cyclic vomiting syndrome, asthma and hypertension. She is on Keppra and Zofran and allegedly is taking them compliantly. She denies any current seizure-like activity today. No recent travel or sick co ntacts at home. ED Past Medical Hx - Past Medical History Hx Hypertension: Yes Hx CVA: No Hx Heart Attack/AMI: No Hx Congestive Heart Failure: No Hx Diabetes: No Hx Deep Vein Thrombosis: No Hx Pulmonary Embolism: No Hx GERD: No Hx Liver Disease: No Hx Renal Disease: No Hx Sickle Cell Disease: No Hx Arthritis: No Hx Headaches / Migraines: No Hx Seizures: Yes Hx Kidney Stones: No Hx Psychiatric Treatment: No Hx Asthma: Yes Hx COPD: No Hx Tuberculosis: No Hx Dementia: No Hx HIV: No Additional medical history: cyclic vomiting syndrome - Surgical History Hx Coronary Stent: No Hx Open Heart Surgery: No Hx Pacemaker: No Hx Internal Defibrillator: No Hx Cholecystectomy: No Hx Appendectomy: No Hx Breast Surgery: No - Social History Smoking Status: Never Smoker Substance Use Type: None - Medications Home Medications: Home Medications Medication Instructions Recorded Confirmed Last Taken Type levETIRAcetam [Keppra TAB] 1,000 mg PO QDAY 07/05/19 07/05/19 06/05/19 History Famotidine [Pepcid] 20 mg PO BID #30 tablet 07/06/19 Unknown Rx Potassium Chloride [Klor-Con 8] 8 meq PO QDAY #10 tablet 07/06/19 Unknown Rx levETIRAcetam [Keppra TAB] 750 mg PO BID #60 tablet 07/06/19 Unknown Rx oxyCODONE /ACETAMINOPHEN [Percocet 1 tab PO Q8H PRN #6 tablet 07/06/19 Unknown Rx 5/325 mg] Promethazine [Phenergan] 25 mg OR Q6HR PRN #20 supp.rect 07/07/19 Unknown Rx Famotidine [Pepcid] 40 mg PO QHS #10 tablet 07/12/19 Unknown Rx levETIRAcetam [Keppra TAB] 500 mg PO BID #60 tablet 07/12/19 Unknown Rx Famotidine [Pepcid] 20 mg PO BID #30 tablet 07/13/19 Unknown Rx levETIRAcetam [Keppra TAB] 500 mg PO BID #90 tablet 07/13/19 Unknown Rx Ciprofloxacin HCl [Ciprofloxacin 500 mg PO Q12HR 10 Days #20 tab 07/23/19 Unknown Rx TAB] Ondansetron [Zofran Odt] 4 mg PO Q6HR PRN #20 tab.rapdis 07/23/19 Unknown Rx methylPREDNISolone [Medrol 4MG 4 mg PO DAILY 6 Days #1 tab.ds.pk 07/23/19 Unknown Rx DOSEPAK (21 tabs)] metroNIDAZOLE [Flagyl] 500 mg PO Q12HR 10 Days #20 tab 07/23/19 Unknown Rx Promethazine [Phenergan TAB] 25 mg PO Q6HR PRN #20 tab 08/06/19 Unknown Rx Lansoprazole [Prevacid] 15 mg PO BID #30 cap 08/07/19 Unknown Rx Ondansetron [Zofran ODT TAB] 4 mg PO Q8HR #10 tab.rapdis 08/07/19 Unknown Rx traMADoL [Ultram 50 MG tab] 50 mg PO Q6HR PRN #10 tablet 08/07/19 Unknown Rx Dicyclomine [Bentyl] 20 mg PO QID #10 tablet 11/19/19 Unknown Rx Ondansetron [Zofran ODT TAB] 4 mg PO Q8HR PRN #14 tab.rapdis 11/19/19 Unknown Rx ED Review of Systems ROS: Stated complaint: BEHAVIOR Other details as noted in HPI Comment: All other systems reviewed and negative Constitutional: denies: chills, fever Eyes: denies: eye pain, vision change ENT: denies: ear pain, throat pain Respiratory: denies: cough, shortness of breath Cardiovascular: denies: chest pain, palpitations Gastrointestinal: abdominal pain, nausea, vomiting Genitourinary: denies: dysuria, discharge Musculoskeletal: denies: back pain, arthralgia Skin: denies: rash, lesions Neurological: denies: headache, weakness Physical Exam - Physical Exam Vital Signs: Vital Signs 11/18/19 19:29 Temperature 98.8 F Pulse Rate 88 Respiratory 20 Rate Blood Pressure 146/79 [Right] O2 Sat by Pulse 98 Oximetry Physical Exam: GENERAL: The patient is well-developed well-nourished. HENT: Normocephalic. Atraumatic. Patient has moist mucous membranes. EYES: Extraocular motions are intact. NECK: Supple. Trachea is midline. CHEST/LUNGS: Clear to auscultation. There is no respiratory distress noted. HEART/CARDIOVASCULAR: Regular. There is no tachycardia. ABDOMEN: Abdomen is soft. Mild generalized abdominal tenderness to palpation. No guarding. Patient has normal bowel sounds. There is no abdominal distention. SKIN: Skin is warm and dry. NEURO: The patient is awake, alert, and oriented. The patient is cooperative. Normal speech. MUSCULOSKELETAL: There is no tenderness or deformity. There is no limitation range of motion. There is no evidence of acute injury. ED Course Vital Signs 11/18/19 19:29 Temperature 98.8 F Pulse Rate 88 Respiratory 20 Rate Blood Pressure 146/79 [Right] O2 Sat by Pulse 98 Oximetry ED Medical Decision Making - Lab Data Result diagrams: 11/18/19 19:59 11/18/19 19:59 - Radiology Data Radiology results: report reviewed, image reviewed interpreted by me: Abdominal x-ray shows nonspecific nonobstructive bowel gas CT abdomen pelvis wo con INDICATION: "Generalized" abdominal pain with nausea and vomiting x 1 day.. TECHNIQUE: All CT scans at this location are performed using the following dose modulation technique: Automated exposure control. CONTRAST: None. COMPARISON: None available. CT ABDOMEN: The parenchymal organs are unremarkable in appearance. Negative for abdominal mass, fluid or inflammation. The bowel is not dilated or thickened. CT PELVIS: Negative for distal ureteral stone, pelvic fluid collection or inflammation. The appendix is normal. The uterus contains an IUD. IMPRESSION: Negative for obstruction or localized inflammation. - Medical Decision Making This patient presents to the emergency department with a complaint of abdominal pain, nausea and vomiting. She has been here, and other facilities, multiple times for these same symptoms. She appears to have some history of either cyclic vomiting syndrome versus cannabinoid hyperemesis. Patient does complain of some abdominal pain while in the emergency department but I have not seen any nausea or vomiting since her presentation or through her entire ED course. There is some reproducible mild abdominal tenderness to palpation but the abdomen is soft, nondistended and nontoxic in appearance. Patient's labs are mostly unremarkable except for mild hyperkalemia and possibly some mild dehydration. Patient was given both IV fluid resuscitation and potassium chloride for replacement. She was also given a dose of IV analgesia. A CT scan of the abdomen and pelvis was completed that did not show any acute process. Her vital signs have been stable throughout her ED course including being afebrile. For all these reasons the patient appears safe for discharge home at this time. She was given referral for gastroenterology and instructed to return to the emergency department with any worsening of her symptoms or any acute distress. Critical Care Time: No Critical care attestation.: If time is entered above; I have spent that time in minutes in the direct care of this critically ill patient, excluding procedure time. ED Disposition Clinical Impression: Abdominal pain Qualifiers: Abdominal location: unspecified location Qualified Code(s): R10.9 - Unspecified abdominal pain Nausea & vomiting Qualifiers: Vomiting type: unspecified Vomiting Intractability: unspecified Qualified Code(s): R11.2 - Nausea with vomiting, unspecified Disposition: DC- TO HOME OR SELFCARE Is pt being admited?: No Condition: Stable Instructions: Acute Nausea and Vomiting (ED), Abdominal Pain (ED) Additional Instructions: Please follow-up with a primary care physician in the next few days. I have given you a referral for Dr. Elton Newell of [facility] to follow-up regarding your abdominal pain, nausea and vomiting. Increase your oral rehydration. Return to the emergency department with any worsening of your symptoms or any acute distress. Prescriptions: Dicyclomine [Bentyl] 20 mg PO QID #10 tablet Ondansetron [Zofran ODT TAB] 4 mg PO Q8HR PRN #14 tab.rapdis PRN Reason: Nausea And Vomiting Referrals: PRIMARY CARE, [Primary Care Provider] - 3-5 Days YOVANY NEWELL MD [Staff Physician] - 3-5 Days Time of Disposition: 00:41
[2019-11-18 20:33] LABS: Basophils % (Auto) 0.2 % (0.0-1.8); Eosinophils % (Auto) 0.2 % (0.0-4.3); Hematocrit 40.5 % (30.3-42.9); Hemoglobin 13.2 gm/dl (10.1-14.3); Lymphocytes # (Auto) 1.3 K/mm3 (1.2-5.4); Lymphocytes % (Auto) 7.9 % (13.4-35.0); Mean Corpuscular HGB Conc 33 % (30-34); Mean Corpuscular Volume 86 fl (79-97); Monocytes # (Auto) 0.8 K/mm3 (0.0-0.8); Monocytes % (Auto) 4.8 % (0.0-7.3); Platelet Count 280 K/mm3 (140-440); Red Blood Count 4.72 M/mm3 (3.65-5.03); Red Cell Distribution Width 15.3 % (13.2-15.2)
[2019-11-18 20:46] LABS: Alanine Aminotransferase 15 units/L (7-56); Albumin 4.2 g/dL (3.9-5); BUN/Creatinine Ratio 10; Blood Urea Nitrogen 9 mg/dL (7-17); Calcium 9.5 mg/dL (8.4-10.2); Hemolysis Index 4
[2019-11-18] MEDS ORDERED: MORPHINE 4 MG/1 ML INJ IV ONE (20:55)
[2019-11-18] MEDS ORDERED: POTASSIUM CHLORIDE ER 10 MEQ TAB PO ONE (21:00)
[2019-11-18 21:12] LABS: Bilirubin,Urine NEG (Negative); Blood,Urine NEG (Negative); Color,Urine Yellow (Yellow); Mucus,Urine FEW /HPF; Protein,Urine <15 mg/dL mg/dL (Negative); Urobilinogen,Urine < 2.0 mg/dL (<2.0)
--- NOTE | 2019-11-18 21:27 | XRay Report ---
ABDOMEN 3 VIEW(S) INDICATION / CLINICAL INFORMATION: Abd pain. COMPARISON: Abdomen x-ray 09/05/2019 FINDINGS: TUBES / LINES: None. BOWEL GAS PATTERN: No significant abnormality. FREE AIR / EXTRALUMINAL GAS: None seen. ADDITIONAL FINDINGS: IUD device projects over midline of pelvis in expected position IMPRESSION: 1. No significant abnormality. Signer Name: Dalton Galvin MD Signed: 11/18/2019 9:22 PM Workstation Name: [id number]
[2019-11-18] MEDS ORDERED: POTASSIUM CHLORIDE ER 20 MEQ TAB PO ONE (22:00)
--- NOTE | 2019-11-19 00:38 | Cat Scan Report ---
CT abdomen pelvis wo con INDICATION: "Generalized" abdominal pain with nausea and vomiting x 1 day.. TECHNIQUE: All CT scans at this location are performed using the following dose modulation technique: Automated exposure control. CONTRAST: None. COMPARISON: None available. CT ABDOMEN: The parenchymal organs are unremarkable in appearance. Negative for abdominal mass, fluid or inflammation. The bowel is not dilated or thickened. CT PELVIS: Negative for distal ureteral stone, pelvic fluid collection or inflammation. The appendix is normal. The uterus contains an IUD. IMPRESSION: Negative for obstruction or localized inflammation. Signer Name: Drew Rm MD Signed: 11/19/2019 12:33 AM Workstation Name: [id number]
[2019-11-19 00:52] VITALS: BP 107/56
== END 2019-11-19 00:54 | disposition home or self-care (01) ==
LOC: ED 19:13
DX: R10.84 Generalized abdominal pain (principal); R11.2 Nausea with vomiting, unspecified; J45.909 Unspecified asthma, uncomplicated; Z79.899 Other long term (current) drug therapy
CPT/HCPCS: 36415; 74019; 74176; 80053; 81001; 82550; 83690; 84703; 85025; 96361; 96374; 96375; 99285; J2270; J2765; J7030

== ENCOUNTER 2019-12-18 11:44 | Emergency (ER) | payer MEDICAID ==
[2019-12-18] MEDS ORDERED: SODIUM CHLORIDE 0.9% 1000 ML 1,000 ML IV ONE (12:36)
--- NOTE | 2019-12-18 12:36 | Emergency Department Report ---
ED Psych HPI - General Chief Complaint: Overdose Stated Complaint: SUICIDAL Time Seen by Provider: 12/18/19 12:22 Source: patient, EMS Mode of arrival: Stretcher - History of Present Illness Initial Comments: 18-year-old female with history of cyclical vomiting syndrome, bipolar depression anxiety, presents to ED with suicidal ideations and possible Benadryl overdose. Patient states approximately 1 hour ago she took 6 Benadryl tabs as a suicide attempt. Patient states she cannot handle things that are going on in her life and she does not have any help. Patient would not elaborate. She reports alcohol use last night, none today. She denies drug use. MD Complaint: suicidal ideation Associated Psychiatric Symptoms: depression, suicidal ideation Quality: constant Improves With: none Worsens With: none Context: significant life stressor Associated Symptoms: denies: nausea, vomiting Treatments Prior to Arrival: none If Self Harm: intentional overdose - Related Data Home Medications Medication Instructions Recorded Confirmed Last Taken levETIRAcetam [Keppra TAB] 1,000 mg PO QDAY 07/05/19 07/05/19 06/05/19 Previous Rx's Medication Instructions Recorded Last Taken Type Famotidine [Pepcid] 20 mg PO BID #30 tablet 07/06/19 Unknown Rx Potassium Chloride [Klor-Con 8] 8 meq PO QDAY #10 tablet 07/06/19 Unknown Rx levETIRAcetam [Keppra TAB] 750 mg PO BID #60 tablet 07/06/19 Unknown Rx oxyCODONE /ACETAMINOPHEN [Percocet 1 tab PO Q8H PRN #6 tablet 07/06/19 Unknown Rx 5/325 mg] Promethazine [Phenergan] 25 mg ID Q6HR PRN #20 supp.rect 07/07/19 Unknown Rx Famotidine [Pepcid] 40 mg PO QHS #10 tablet 07/12/19 Unknown Rx levETIRAcetam [Keppra TAB] 500 mg PO BID #60 tablet 07/12/19 Unknown Rx Famotidine [Pepcid] 20 mg PO BID #30 tablet 07/13/19 Unknown Rx levETIRAcetam [Keppra TAB] 500 mg PO BID #90 tablet 07/13/19 Unknown Rx Ciprofloxacin HCl [Ciprofloxacin 500 mg PO Q12HR 10 Days #20 tab 07/23/19 Unknown Rx TAB] Ondansetron [Zofran Odt] 4 mg PO Q6HR PRN #20 tab.rapdis 07/23/19 Unknown Rx methylPREDNISolone [Medrol 4MG 4 mg PO DAILY 6 Days #1 tab.ds.pk 07/23/19 Unknown Rx DOSEPAK (21 tabs)] metroNIDAZOLE [Flagyl] 500 mg PO Q12HR 10 Days #20 tab 07/23/19 Unknown Rx Promethazine [Phenergan TAB] 25 mg PO Q6HR PRN #20 tab 08/06/19 Unknown Rx Lansoprazole [Prevacid] 15 mg PO BID #30 cap 08/07/19 Unknown Rx Ondansetron [Zofran ODT TAB] 4 mg PO Q8HR #10 tab.rapdis 08/07/19 Unknown Rx traMADoL [Ultram 50 MG tab] 50 mg PO Q6HR PRN #10 tablet 08/07/19 Unknown Rx Dicyclomine [Bentyl] 20 mg PO QID #10 tablet 11/19/19 Unknown Rx Ondansetron [Zofran ODT TAB] 4 mg PO Q8HR PRN #14 tab.rapdis 11/19/19 Unknown Rx Allergies Allergy/AdvReac Type Severity Reaction Status Date / Time No Known Allergies Allergy Unverified 07/13/19 17:21 ED Review of Systems ROS: Stated complaint: SUICIDAL Other details as noted in HPI Comment: All other systems reviewed and negative Gastrointestinal: denies: vomiting Psychiatric: depression, suicidal thoughts. denies: homicidal thoughts ED Past Medical Hx - Past Medical History Hx Hypertension: Yes Hx CVA: No Hx Heart Attack/AMI: No Hx Congestive Heart Failure: No Hx Diabetes: No Hx Deep Vein Thrombosis: No Hx Pulmonary Embolism: No Hx GERD: No Hx Liver Disease: No Hx Renal Disease: No Hx Sickle Cell Disease: No Hx Arthritis: No Hx Headaches / Migraines: No Hx Seizures: Yes Hx Kidney Stones: No Hx Psychiatric Treatment: No Hx Asthma: Yes Hx COPD: No Hx Tuberculosis: No Hx Dementia: No Hx HIV: No Additional medical history: cyclic vomiting syndrome - Surgical History Hx Coronary Stent: No Hx Open Heart Surgery: No Hx Pacemaker: No Hx Internal Defibrillator: No Hx Cholecystectomy: No Hx Appendectomy: No Hx Breast Surgery: No - Social History Smoking Status: Never Smoker Substance Use Type: Alcohol, Marijuana - Medications Home Medications: Home Medications Medication Instructions Recorded Confirmed Last Taken Type levETIRAcetam [Keppra TAB] 1,000 mg PO QDAY 07/05/19 07/05/19 06/05/19 History Famotidine [Pepcid] 20 mg PO BID #30 tablet 07/06/19 Unknown Rx Potassium Chloride [Klor-Con 8] 8 meq PO QDAY #10 tablet 07/06/19 Unknown Rx levETIRAcetam [Keppra TAB] 750 mg PO BID #60 tablet 07/06/19 Unknown Rx oxyCODONE /ACETAMINOPHEN [Percocet 1 tab PO Q8H PRN #6 tablet 07/06/19 Unknown Rx 5/325 mg] Promethazine [Phenergan] 25 mg ID Q6HR PRN #20 supp.rect 07/07/19 Unknown Rx Famotidine [Pepcid] 40 mg PO QHS #10 tablet 07/12/19 Unknown Rx levETIRAcetam [Keppra TAB] 500 mg PO BID #60 tablet 07/12/19 Unknown Rx Famotidine [Pepcid] 20 mg PO BID #30 tablet 07/13/19 Unknown Rx levETIRAcetam [Keppra TAB] 500 mg PO BID #90 tablet 07/13/19 Unknown Rx Ciprofloxacin HCl [Ciprofloxacin 500 mg PO Q12HR 10 Days #20 tab 07/23/19 Unknown Rx TAB] Ondansetron [Zofran Odt] 4 mg PO Q6HR PRN #20 tab.rapdis 07/23/19 Unknown Rx methylPREDNISolone [Medrol 4MG 4 mg PO DAILY 6 Days #1 tab.ds.pk 07/23/19 Unknown Rx DOSEPAK (21 tabs)] metroNIDAZOLE [Flagyl] 500 mg PO Q12HR 10 Days #20 tab 07/23/19 Unknown Rx Promethazine [Phenergan TAB] 25 mg PO Q6HR PRN #20 tab 08/06/19 Unknown Rx Lansoprazole [Prevacid] 15 mg PO BID #30 cap 08/07/19 Unknown Rx Ondansetron [Zofran ODT TAB] 4 mg PO Q8HR #10 tab.rapdis 08/07/19 Unknown Rx traMADoL [Ultram 50 MG tab] 50 mg PO Q6HR PRN #10 tablet 08/07/19 Unknown Rx Dicyclomine [Bentyl] 20 mg PO QID #10 tablet 11/19/19 Unknown Rx Ondansetron [Zofran ODT TAB] 4 mg PO Q8HR PRN #14 tab.rapdis 11/19/19 Unknown Rx ED Physical Exam - General Limitations: No Limitations General appearance: alert, in no apparent distress, anxious - Head Head exam: Present: atraumatic, normocephalic - Eye Eye exam: Present: normal appearance, EOMI - ENT ENT exam: Present: mucous membranes moist - Neck Neck exam: Present: normal inspection - Respiratory Respiratory exam: Present: normal lung sounds bilaterally. Absent: respiratory distress - Cardiovascular Cardiovascular Exam: Present: regular rate, normal rhythm - GI/Abdominal GI/Abdominal exam: Present: soft. Absent: distended, tenderness - Extremities Exam Extremities exam: Present: normal inspection - Neurological Exam Neurological exam: Present: alert, oriented X3 - Psychiatric Psychiatric exam: Present: depressed, anxious, suicidal ideation - Skin Skin exam: Present: warm, dry, intact, normal color ED Course Vital Signs 12/18/19 12/18/19 12/18/19 12:32 14:12 15:51 Temperature 98.2 F Pulse Rate 89 85 84 Respiratory 10 L 16 12 Rate Blood Pressure 146/102 135/85 112/62 [Right] O2 Sat by Pulse 98 98 98 Oximetry - Reevaluation(s) Reevaluation #1: 12/18/19 12:59 Poison control contacted. Ingestion is nontoxic based on her weight. Observe x 6 hrs from time of ingestion ED Medical Decision Making - Lab Data Result diagrams: 12/18/19 12:59 12/18/19 12:59 - EKG Data -: EKG Interpreted by Me EKG shows normal: sinus rhythm, axis, intervals, QRS complexes, ST-T waves Rate: normal - EKG Data Interpretation: no acute changes - Medical Decision Making Pt w/ nontoxic ingestion of Benadryl. She has been placed on a 1013. She has been observed for 6 hrs post ingestion. She is stable and medically clear. - Differential Diagnosis SI, overdose Critical care attestation.: If time is entered above; I have spent that time in minutes in the direct care of this critically ill patient, excluding procedure time. ED Disposition Clinical Impression: Suicidal ideation, Suicide attempt by drug overdose Disposition: [id number]/TX-[id number] PSY HOSP/PSY UNIT Is pt being admited?: No Condition: Stable Referrals: PRIMARY CARE, [Primary Care Provider] - 3-5 Days Time of Disposition: 18:05
[2019-12-18 13:40] LABS: Basophils % (Auto) 0.2 % (0.0-1.8); Eosinophils # (Auto) 0.1 K/mm3 (0.0-0.4); Eosinophils % (Auto) 0.5 % (0.0-4.3); Hemoglobin 13.1 gm/dl (10.1-14.3); Lymphocytes % (Auto) 7.1 % (13.4-35.0); Mean Corpuscular HGB Conc 33 % (30-34); Mean Corpuscular Volume 85 fl (79-97); Monocytes # (Auto) 0.7 K/mm3 (0.0-0.8); Monocytes % (Auto) 5.3 % (0.0-7.3); Platelet Count 333 K/mm3 (140-440); Red Blood Count 4.74 M/mm3 (3.65-5.03); Red Cell Distribution Width 15.3 % (13.2-15.2)
[2019-12-18 13:54] LABS: Alanine Aminotransferase 16 units/L (7-56); Albumin 4.4 g/dL (3.9-5)
[2019-12-18 13:57] LABS: Bilirubin,Direct < 0.2 mg/dL (0-0.2)
[2019-12-18 14:05] LABS: BUN/Creatinine Ratio 11; Blood Urea Nitrogen 9 mg/dL (7-17); Hemolysis Index 8
[2019-12-18 15:27] LABS: Amorphous Crystals,Urine Few; Bacteria,Urine 1+ /HPF (Negative); Bilirubin,Urine NEG (Negative); Blood,Urine NEG (Negative); Color,Urine Amber (Yellow); Mucus,Urine FEW /HPF; Urobilinogen,Urine < 2.0 mg/dL (<2.0)
[2019-12-18 15:29] LABS: Amphetamine Screen,Urine PRESUMPTIVE NEGATIVE; Benzodiazepines Screen,Urine PRESUMPTIVE NEGATIVE; Cocaine Screen,Urine PRESUMPTIVE NEGATIVE; Methadone Screen,Urine PRESUMPTIVE NEGATIVE; Opiate Screen,Urine PRESUMPTIVE NEGATIVE
[2019-12-18 15:45] LABS: Cannabinoid Screen,Urine PRESUMPTIVE POSITIVE
[2019-12-18 15:52] VITALS: BP 112/62
== END 2019-12-18 18:21 ==
LOC: ED 11:44
DX: T50.902A Poisoning by unspecified drugs, medicaments and biological substances, intentional self-harm, initial encounter (principal); R45.851 Suicidal ideations; F12.90 Cannabis use, unspecified, uncomplicated; F31.9 Bipolar disorder, unspecified; J45.909 Unspecified asthma, uncomplicated; Z79.899 Other long term (current) drug therapy; Z86.69 Personal history of other diseases of the nervous system and sense organs; Y92.89 Other specified places as the place of occurrence of the external cause
CPT/HCPCS: 36415; 80048; 80076; 80307; 81001; 84703; 85025; 87076; 87086; 87186; 93005; 99285; J7030; 80320; G0480

== ENCOUNTER 2020-03-29 21:46 | Emergency (ER) | payer MEDICAID ==
[2020-03-29] MEDS ORDERED: SODIUM CHLORIDE 0.9% 1000 ML 1,000 ML IV ONE (22:20)
[2020-03-29] MEDS ORDERED: METOCLOPRAMIDE 10 MG/2 ML INJ IV ONE (22:21)
[2020-03-29] MEDS ORDERED: diphenhydrAMINE 50 MG/ML VIAL IV ONE (22:21)
--- NOTE | 2020-03-29 22:27 | Emergency Department Report ---
ED General Adult HPI - General Chief complaint: Seizure Stated complaint: SEIZURE Time Seen by Provider: 03/29/20 22:13 Source: EMS Mode of arrival: Stretcher Limitations: No Limitations - History of Present Illness Initial comments: Patient is 19 years old female with history of cyclic vomiting and bipolar disorder. Patient has frequent visits to the emergency room for pseudoseizure. According to EMS that family reported to them that she has been fully work-up for seizure by neurologist and no evidence of seizure. Patient currently not on any medication for seizure. Patient brought to the emergency room from home for possible pseudoseizure, nausea and vomiting. EMS stated that when they arrived to patient home patient is shaking but talking at the same time. Patient remained alert and oriented x3 in no acute distress. No vomiting observed by EMS. Patient stated that she was just discharged from the hospital at [facility] for cyclic vomiting. Patient denied any fever, chills, chest pain or shortness of breath. Patient also denied any suicidal or homicidal ideation. No visual or auditory hallucination. - Related Data Home Medications Medication Instructions Recorded Confirmed Last Taken levETIRAcetam [Keppra TAB] 1,000 mg PO QDAY 07/05/19 07/05/19 06/05/19 Previous Rx's Medication Instructions Recorded Last Taken Type Famotidine [Pepcid] 20 mg PO BID #30 tablet 07/06/19 Unknown Rx Potassium Chloride [Klor-Con 8] 8 meq PO QDAY #10 tablet 07/06/19 Unknown Rx levETIRAcetam [Keppra TAB] 750 mg PO BID #60 tablet 07/06/19 Unknown Rx oxyCODONE /ACETAMINOPHEN [Percocet 1 tab PO Q8H PRN #6 tablet 07/06/19 Unknown Rx 5/325 mg] Promethazine [Phenergan] 25 mg [place] Q6HR PRN #20 supp.rect 07/07/19 Unknown Rx Famotidine [Pepcid] 40 mg PO QHS #10 tablet 07/12/19 Unknown Rx levETIRAcetam [Keppra TAB] 500 mg PO BID #60 tablet 07/12/19 Unknown Rx Famotidine [Pepcid] 20 mg PO BID #30 tablet 07/13/19 Unknown Rx levETIRAcetam [Keppra TAB] 500 mg PO BID #90 tablet 07/13/19 Unknown Rx Ciprofloxacin HCl [Ciprofloxacin 500 mg PO Q12HR 10 Days #20 tab 07/23/19 Unknown Rx TAB] Ondansetron [Zofran Odt] 4 mg PO Q6HR PRN #20 tab.rapdis 07/23/19 Unknown Rx methylPREDNISolone [Medrol 4MG 4 mg PO DAILY 6 Days #1 tab.ds.pk 07/23/19 U nknown Rx DOSEPAK (21 tabs)] metroNIDAZOLE [Flagyl] 500 mg PO Q12HR 10 Days #20 tab 07/23/19 Unknown Rx Promethazine [Phenergan TAB] 25 mg PO Q6HR PRN #20 tab 08/06/19 Unknown Rx Lansoprazole [Prevacid] 15 mg PO BID #30 cap 08/07/19 Unknown Rx Ondansetron [Zofran ODT TAB] 4 mg PO Q8HR #10 tab.rapdis 08/07/19 Unknown Rx traMADoL [Ultram 50 MG tab] 50 mg PO Q6HR PRN #10 tablet 08/07/19 Unknown Rx Dicyclomine [Bentyl] 20 mg PO QID #10 tablet 11/19/19 Unknown Rx Ondansetron [Zofran ODT TAB] 4 mg PO Q8HR PRN #14 tab.rapdis 11/19/19 Unknown Rx Dicyclomine [Bentyl] 20 mg PO QID #20 tablet 03/30/20 Unknown Rx Metoclopramide [Reglan] 10 mg PO TID PRN #20 tab 03/30/20 Unknown Rx Allergies Allergy/AdvReac Type Severity Reaction Status Date / Time No Known Allergies Allergy Unverified 07/13/19 17:21 ED Review of Systems ROS: Stated complaint: SEIZURE Other details as noted in HPI Comment: All other systems reviewed and negative Constitutional: denies: chills, fever Respiratory: denies: cough, shortness of breath, SOB with exertion, SOB at rest, wheezing Cardiovascular: denies: chest pain, palpitations Gastrointestinal: nausea, vomiting. denies: abdominal pain, diarrhea, constipation, hematemesis, melena, hematochezia Neurological: denies: headache, weakness Psychiatric: denies: depression, auditory hallucinations, visual hallucinations, homicidal thoughts, suicidal thoughts ED Past Medical Hx - Past Medical History Hx Hypertension: Yes Hx CVA: No Hx Heart Attack/AMI: No Hx Congestive Heart Failure: No Hx Diabetes: No Hx Deep Vein Thrombosis: No Hx Pulmonary Embolism: No Hx GERD: No Hx Liver Disease: No Hx Renal Disease: No Hx Sickle Cell Disease: No Hx Arthritis: No Hx Headaches / Migraines: No Hx Seizures: Yes Hx Kidney Stones: No Hx Psychiatric Treatment: No Hx Asthma: Yes Hx COPD: No Hx Tuberculosis: No Hx Dementia: No Hx HIV: No Additional medical history: cyclic vomiting syndrome - Surgical History Hx Coronary Stent: No Hx Open Heart Surgery: No Hx Pacemaker: No Hx Internal Defibrillator: No Hx Cholecystectomy: No Hx Appendectomy: No Hx Breast Surgery: No - Social History Smoking Status: Never Smoker Substance Use Type: Alcohol, Marijuana - Medications Home Medications: Home Medications Medication Instructions Recorded Confirmed Last Taken Type levETIRAcetam [Keppra TAB] 1,000 mg PO QDAY 07/05/19 07/05/19 06/05/19 History Famotidine [Pepcid] 20 mg PO BID #30 tablet 07/06/19 Unknown Rx Potassium Chloride [Klor-Con 8] 8 meq PO QDAY #10 tablet 07/06/19 Unknown Rx levETIRAcetam [Keppra TAB] 750 mg PO BID #60 tablet 07/06/19 Unknown Rx oxyCODONE /ACETAMINOPHEN [Percocet 1 tab PO Q8H PRN #6 tablet 07/06/19 Unknown Rx 5/325 mg] Promethazine [Phenergan] 25 mg [place] Q6HR PRN #20 supp.rect 07/07/19 Unknown Rx Famotidine [Pepcid] 40 mg PO QHS #10 tablet 07/12/19 Unknown Rx levETIRAcetam [Keppra TAB] 500 mg PO BID #60 tablet 07/12/19 Unknown Rx Famotidine [Pepcid] 20 mg PO BID #30 tablet 07/13/19 Unknown Rx levETIRAcetam [Keppra TAB] 500 mg PO BID #90 tablet 07/13/19 Unknown Rx Ciprofloxacin HCl [Ciprofloxacin 500 mg PO Q12HR 10 Days #20 tab 07/23/19 Unkno wn Rx TAB] Ondansetron [Zofran Odt] 4 mg PO Q6HR PRN #20 tab.rapdis 07/23/19 Unknown Rx methylPREDNISolone [Medrol 4MG 4 mg PO DAILY 6 Days #1 tab.ds.pk 07/23/19 Unknown Rx DOSEPAK (21 tabs)] metroNIDAZOLE [Flagyl] 500 mg PO Q12HR 10 Days #20 tab 07/23/19 Unknown Rx Promethazine [Phenergan TAB] 25 mg PO Q6HR PRN #20 tab 08/06/19 Unknown Rx Lansoprazole [Prevacid] 15 mg PO BID #30 cap 08/07/19 Unknown Rx Ondansetron [Zofran ODT TAB] 4 mg PO Q8HR #10 tab.rapdis 08/07/19 Unknown Rx traMADoL [Ultram 50 MG tab] 50 mg PO Q6HR PRN #10 tablet 08/07/19 Unknown Rx Dicyclomine [Bentyl] 20 mg PO QID #10 tablet 11/19/19 Unknown Rx Ondansetron [Zofran ODT TAB] 4 mg PO Q8HR PRN #14 tab.rapdis 11/19/19 Unknown Rx Dicyclomine [Bentyl] 20 mg PO QID #20 tablet 03/30/20 Unknown Rx Metoclopramide [Reglan] 10 mg PO TID PRN #20 tab 03/30/20 Unknown Rx ED Physical Exam - General Limitations: No Limitations General appearance: alert, in no apparent distress - Head Head exam: Present: atraumatic, normocephalic, normal inspection - Eye Eye exam: Present: normal appearance, PERRL - ENT ENT exam: Present: normal exam, normal orophraynx, mucous membranes moist - Neck Neck exam: Present: normal inspection, full ROM. Absent: tenderness, meningismus, lymphadenopathy, thyromegaly - Respiratory Respiratory exam: Present: normal lung sounds bilaterally - Cardiovascular Cardiovascular Exam: Present: regular rate, normal rhythm, normal heart sounds - GI/Abdominal GI/Abdominal exam: Present: soft, normal bowel sounds. Absent: distended, tenderness, guarding, rebound, rigid, organomegaly, mass, bruit, pulsatile mass, hernia - Extremities Exam Extremities exam: Present: normal inspection, full ROM, normal capillary refill. Absent: pedal edema, calf tenderness - Back Exam Back exam: Present: normal inspection, full ROM. Absent: CVA tenderness (R), CVA tenderness (L) - Neurological Exam Neurological exam: Present: alert, oriented X3, CN II-XII intact, normal gait, reflexes normal - Psychiatric Psychiatric exam: Present: normal mood - Skin Skin exam: Present: warm, intact, normal color ED Course Vital Signs 03/29/20 03/29/20 03/30/20 22:22 22:23 01:59 Temperature 98.6 F 98.6 F Pulse Rate 95 H 97 H 92 H Respiratory 16 16 18 Rate Blood Pressure 118/67 Blood Pressure 118/67 152/100 [Right] O2 Sat by Pulse 95 98 Oximetry 03/30/20 04:31 Temperature Pulse Rate 89 Respiratory 17 Rate Blood Pressure Blood Pressure 111/60 [Right] O2 Sat by Pulse 97 Oximetry ED Medical Decision Making - Lab Data Result diagrams: 03/29/20 22:32 03/29/20 22:32 - Medical Decision Making Patient is 19 years old female with history of cyclic vomiting and bipolar disorder. Patient has frequent visits to the emergency room for pseudoseizure. According to EMS that family reported to them that she has been fully work-up for seizure by neurologist and no evidence of seizure. Patient currently not on any medication for seizure. Patient brought to the emergency room from home for possible pseudoseizure, nausea and vomiting. EMS stated that when they arrived to patient home patient is shaking but talking at the same time. Patient remained alert and oriented x3 in no acute distress. No vomiting observ ed by EMS. Patient stated that she was just discharged from the hospital at [facility] for cyclic vomiting. Patient denied any fever, chills, chest pain or shortness of breath. Patient also denied any suicidal or homicidal ideation. No visual or auditory hallucination. Further questioning patient stated that she is using marijuana every other day. I believe patient symptoms is most likely cannabinoid syndrome. Patient given multiple doses of antiemetic including Zofran, Reglan, Benadryl finally improved with Ativan 2 mg. Patient informed about her condition and counseled about discontinuing using marijuana. Patient also advised to return to the ER she develop any new symptoms. Critical care attestation.: If time is entered above; I have spent that time in minutes in the direct care of this critically ill patient, excluding procedure time. ED Disposition Clinical Impression: Marijuana dependence, Cannabinoid hyperemesis syndrome Disposition: -01 TO HOME OR SELFCARE Is pt being admited?: No Condition: Stable Instructions: Acute Nausea and Vomiting (ED) Additional Instructions: What is cannabinoid hyperemesis syndrome? Cannabinoid hyperemesis syndrome (CHS) is a condition that leads to repeated and severe bouts of vomiting. It is rare and only occurs in daily long-term users of marijuana. Marijuana has several active substances. These include THC and related chemicals. These substances bind to molecules found in the brain. That causes the drug high and other effects that users feel. Your digestive tract also has a number of molecules that bind to THC and related substances. So marijuana also affects the digestive tract. For example, the drug can change the time it takes the stomach to empty. It also affects the esophageal sphincter. Thats the tight band of muscle that opens and closes to let food from the esophagus into the stomach. Long-term marijuana use can change the way the affected molecules respond and lead to the symptoms of CHS. Marijuana is the most widely used illegal drug in the [place] Young adults are the most frequent users. A small number of these people develop CHS. It often only happens in people who have regularly used marijuana for several years. Often CHS affects those who use the drug at least once a day. What causes cannabinoid hyperemesis syndrome? Marijuana has very complex effects on the body. Experts are still trying to learn exactly how it causes CHS in some people. In the brain, marijuana often has the opposite effect of CHS. It helps prevent nausea and vomiting. The drug is also good at stopping such symptoms in people having chemotherapy. But in the digestive tract, marijuana seems to have the opposite effect. It actually makes you more likely to have nausea and vomiting. With the first use of marijuana, the signals from the brain may be more important. That may lead to anti-nausea effects at first. But with repeated use of marijuana, certain receptors in the brain may stop responding to the drug in the same way. That may cause the repeated bouts of vomiting found in people with CHS. It still isnt clear why some heavy marijuana users get the syndrome, but others don't. What are the symptoms of cannabinoid hyperemesis syndrome? People with CHS suffer from repeated bouts of vomiting. In between these episodes are times without any symptoms. Healthcare providers often divide these symptoms into 3 stages: the prodromal phase, the hyperemetic phase, and the recovery phase. Prodromal phase. During this phase, the main symptoms are often artillery or naval gunfire observer nausea and belly (abdominal) pain. Some people also develop a fear of vomiting. Most people keep normal eating patterns during this time. Some people use more marijuana because they think it will help stop the nausea. This phase may last for months or years. Hyperemetic phase. Symptoms during this time may include: Ongoing nausea Repeated episodes of vomiting Belly pain Decreased food intake and weight loss Symptoms of fluid loss (dehydration) During this phase, vomiting is often intense and overwhelming. Many people take a lot of hot showers during the day. They find that doing so eases their nausea. (That may be because of how the hot temperature affects a part of the brain called the hypothalamus. This part of the brain effects both temperature regulation and vomiting.) People often first seek medical care during this phase. The hyperemetic phase may continue until the person completely stops using marijuana. Then the recovery phrase starts. Recovery phase. During this time, symptoms go away. Normal eating is possible a gain. This phase can last days or months. Symptoms often come back if the person tries marijuana again. How is cannabinoid hyperemesis syndrome diagnosed? Many health problems can cause repeated vomiting. To make a diagnosis, your healthcare provider will ask you about your symptoms and your past health. He or she will also do a physical exam, including an exam of your belly. Your healthcare provider may also need more tests to rule out other causes of the vomiting. Thats especially the case for ones that may signal a health emergency. Based on your other symptoms, these tests might include: Blood tests for anemia and infection Tests for electrolytes Tests for pancreas and liver enzymes, to check these organs test Urine analysis, to test for infection or other urinary causes Drug screen, to test for drug-related causes of vomiting X-rays of the belly, to check for things such as a blockage Upper endoscopy, to view the stomach and esophagus for possible causes of vomiting Head CT scan, if a nervous system cause of vomiting seems likely Abdominal CT scan, to check for health problems that might need surgery CHS was only recently discovered. So some healthcare providers may not know about it. As a result, they may not spot it for many years. They often confuse CHS with cyclical vomiting disorder. That is a health problem that causes similar symptoms. A specialist trained in diseases of the digestive tract (sales leader) might make the diagnosis. You may have CHS if you have all of these: Long-term weekly and daily marijuana use Belly pain Severe, repeated nausea and vomiting You feel better after taking a hot shower There is no single test that confirms this diagnosis. Only improvement after quitting marijuana confirms the diagnosis. How is cannabinoid hyperemesis syndrome treated? If you have had severe vomiting, you might need to stay in the hospital for a short time. During the hyperemesis phase, you might need these treatments: IV (intravenous) fluid replacement for dehydration Medicines to help decrease vomiting Pain medicine Proton-pump inhibitors, to treat stomach inflammation Frequent hot showers In a small sample of people with CHS, rubbing capsaicin cream on the belly helped decrease pain and nausea. The chemicals in the cream have the same effect as a hot shower Symptoms often ease after a day or 2 unless marijuana is used before this time. To fully get better, you need to stop using marijuana all together. Some people may get help from drug rehab programs to help them quit. Cognitive behavioral therapy or family therapy can also help. If you stop using marijuana, your symptoms should not come back. What are possible complications of cannabinoid hyperemesis syndrome? Very severe, prolonged vomiting may lead to dehydration. It may also lead to electrolyte problems in your blood. If untreated, these can cause rare complications such as: Muscle spasms or weakness Seizures Kidney failure Heart rhythm abnormalities Shock In very rare cases, brain swelling (cerebral edema) Your healthcare team will quickly work to fix any dehydration or electrolyte problems. Doing so can help prevent these problems. What can I do to prevent cannabinoid hyperemesis syndrome? You can prevent CHS by not using marijuana in any form. You may not want to believe that marijuana may be the underlying cause of your symptoms. That may be because you have used it for many years without having any problems. The syndrome may take several years to develop. The drug may help prevent nausea in new users who dont use it often. But people with CHS need to completely stop using it. If they dont, their symptoms will likely come back. Quitting marijuana may lead to other health benefits, such as: Better lung function Improved memory and thinking skills Better sleep Decreased risk for depression and anxiety When should I call my healthcare provider? Call your healthcare provider if you have had severe vomiting for a day or more. Santo points about cannabinoid hyperemesis syndrome CHS is a condition that leads to repeated and severe bouts of vomiting. It results from long-term use of marijuana. Most people self-treat using hot showers to help reduce their symptoms. Some people with CHS may not be diagnosed for several years. Admitting to your healthcare provider that you use marijuana daily can speed up the diagnosis. You might need to stay in the hospital to treat dehydration from CHS. Symptoms start to go away within a day or 2 after stopping marijuana use. Symptoms almost always come back if you use marijuana again. Next steps Tips to help you get the most from a visit to your healthcare provider: Know the reason for your visit and what you want to happen. Before your visit, write down questions you want answered. Bring someone with you to help you ask questions and remember what your provider tells you. At the visit, write down the name of a new diagnosis, and any new medicines, treatments, or tests. Also write down any new instructions your provider gives you. Know why a new medicine or treatment is prescribed, and how it will help you. Also know what the side effects are. Ask if your condition can be treated in other ways. Know why a test or procedure is recommended and what the results could mean. Know what to expect if you do not take the medicine or have the test or procedure. If you have a follow-up appointment, write down the date, time, and purpose for that visit. Know how you can contact your provider if you have questions. Prescriptions: Dicyclomine [Bentyl] 20 mg PO QID #20 tablet Metoclopramide [Reglan] 10 mg PO TID PRN #20 tab PRN Reason: Vomiting Referrals: PRIMARY CARE,MD [Primary Care Provider] - 3-5 Days
[2020-03-29 23:08] LABS: Hemoglobin 13.5 gm/dl (10.1-14.3); Mean Corpuscular HGB Conc 33 % (30-34); Mean Corpuscular Volume 87 fl (79-97); Platelet Count 329 K/mm3 (140-440); Red Blood Count 4.74 M/mm3 (3.65-5.03); Red Cell Distribution Width 15.1 % (13.2-15.2)
[2020-03-29 23:23] LABS: Basophils % (Auto) 0.1 % (0.0-1.8); Lymphocytes # (Auto) 0.7 K/mm3 (1.2-5.4); Lymphocytes % (Auto) 5.1 % (13.4-35.0); Monocytes # (Auto) 0.6 K/mm3 (0.0-0.8); Monocytes % (Auto) 4.2 % (0.0-7.3)
[2020-03-29 23:34] LABS: Alanine Aminotransferase 13 units/L (7-56); Albumin 4.7 g/dL (3.9-5); BUN/Creatinine Ratio 10; Blood Urea Nitrogen 8 mg/dL (7-17); Calcium 9.9 mg/dL (8.4-10.2); Hemolysis Index 19
[2020-03-29 23:47] LABS: Bilirubin,Direct < 0.2 mg/dL (0-0.2)
[2020-03-30] MEDS ORDERED: ONDANSETRON 4 MG/2 ML INJ ONE (00:35)
[2020-03-30] MEDS ORDERED: ONDANSETRON 4 MG/2 ML INJ IV ONE (01:00)
[2020-03-30] MEDS ORDERED: SODIUM CHLORIDE 0.9% 1000 ML 1,000 ML IV ONE (01:45)
[2020-03-30] MEDS ORDERED: LORazepam 2 MG/ML VIAL IV ONE ×2 (01:45→01:47)
[2020-03-30 02:25] LABS: Bilirubin,Urine NEG (Negative); Blood,Urine NEG (Negative); Color,Urine Yellow (Yellow); Mucus,Urine FEW /HPF; Urobilinogen,Urine < 2.0 mg/dL (<2.0)
[2020-03-30 02:32] LABS: Amphetamine Screen,Urine PRESUMPTIVE NEGATIVE; Benzodiazepines Screen,Urine PRESUMPTIVE POSITIVE; Cannabinoid Screen,Urine PRESUMPTIVE POSITIVE; Cocaine Screen,Urine PRESUMPTIVE NEGATIVE; Methadone Screen,Urine PRESUMPTIVE NEGATIVE; Opiate Screen,Urine PRESUMPTIVE NEGATIVE
[2020-03-30 04:33] VITALS: BP 111/60
== END 2020-03-30 04:50 | disposition home or self-care (01) ==
LOC: ED 21:46
DX: R11.2 Nausea with vomiting, unspecified (principal); F12.20 Cannabis dependence, uncomplicated; I10 Essential (primary) hypertension; J45.909 Unspecified asthma, uncomplicated; F12.10 Cannabis abuse, uncomplicated; Z79.899 Other long term (current) drug therapy
CPT/HCPCS: 36415; 80048; 80076; 80307; 81001; 83690; 84703; 85025; 96361; 96374; 96375; 99284; J1200; J2060; J2405; J2765; J7030; 80320; G0480

== ENCOUNTER 2020-09-19 14:06 | Emergency (ER) | payer MEDICAID ==
[2020-09-19] MEDS ORDERED: LIDOCAINE VISCOUS 2% 15 ML ORAL LIQD PO ONE (14:19)
[2020-09-19] MEDS ORDERED: ACETAMINOPHEN W/CODEINE 300-30 MG TAB PO ONE (14:20)
--- NOTE | 2020-09-19 14:20 | Emergency Department Report ---
ED ENT HPI - General Stated complaint: LEFT TOOTHACHE PAIN/PUSS COMING OUT Time Seen by Provider: 09/19/20 14:15 Source: patient Mode of arrival: Ambulatory Limitations: No Limitations - History of Present Illness Initial comments: 19-year-old female presents to the ER today with complaints of severe left lower dental pain. Patient states that her tooth in the left lower jaw broke off about a week ago after eating peanuts. She states that yesterday after eating chicken, piece of the cartilage got stuck in her tooth. When she pulled it out she started having severe pain to the tooth. She states that pain radiates into her ear, left head, left shoulder and down her arm. She states that she has tried Tylenol, Motrin as well as Orajel without any relief of her pain. She denies any fever, chills, difficulty swallowing, chest pain, shortness of breath or any other symptoms at this time. She states that she did make an appointment but is not scheduled until October to see the dentist. MD complaint: tooth pain -: Gradual, Sudden (yesterday) - Related Data Home Medications Medication Instructions Recorded Confirmed Last Taken levETIRAcetam [Keppra TAB] 1,000 mg PO QDAY 07/05/19 07/05/19 06/05/19 Previous Rx's Medication Instructions Recorded Last Taken Type Famotidine [Pepcid] 20 mg PO BID #30 tablet 07/06/19 Unknown Rx Potassium Chloride [Klor-Con 8] 8 meq PO QDAY #10 tablet 07/06/19 Unknown Rx levETIRAcetam [Keppra TAB] 750 mg PO BID #60 tablet 07/06/19 Unknown Rx oxyCODONE /ACETAMINOPHEN [Percocet 1 tab PO Q8H PRN #6 tablet 07/06/19 Unknown Rx 5/325 mg] Promethazine [Phenergan] 25 mg MI Q6HR PRN #20 supp.rect 07/07/19 Unknown Rx Famotidine [Pepcid] 40 mg PO QHS #10 tablet 07/12/19 Unknown Rx levETIRAcetam [Keppra TAB] 500 mg PO BID #60 tablet 07/12/19 Unknown Rx Famotidine [Pepcid] 20 mg PO BID #30 tablet 07/13/19 Unknown Rx levETIRAcetam [Keppra TAB] 500 mg PO BID #90 tablet 07/13/19 Unknown Rx Ciprofloxacin HCl [Ciprofloxacin 500 mg PO Q12HR 10 Days #20 tab 07/23/19 Unknown Rx TAB] Ondansetron [Zofran Odt] 4 mg PO Q6HR PRN #20 tab.rapdis 07/23/19 Unknown Rx metroNIDAZOLE [Flagyl] 500 mg PO Q12HR 10 Days #20 tab 07/23/19 Unknown Rx Promethazine [Phenergan TAB] 25 mg PO Q6HR PRN #20 tab 08/06/19 Unknown Rx Lansoprazole [Prevacid] 15 mg PO BID #30 cap 08/07/19 Unknown Rx Ondansetron [Zofran ODT TAB] 4 mg PO Q8HR #10 tab.rapdis 08/07/19 Unknown Rx traMADoL [Ultram 50 MG tab] 50 mg PO Q6HR PRN #10 tablet 08/07/19 Unknown Rx Dicyclomine [Bentyl] 20 mg PO QID #10 tablet 11/19/19 Unknown Rx Ondansetron [Zofran ODT TAB] 4 mg PO Q8HR PRN #14 tab.rapdis 11/19/19 Unknown Rx Dicyclomine [Bentyl] 20 mg PO QID #20 tablet 03/30/20 Unknown Rx Metoclopramide [Reglan] 10 mg PO TID PRN #20 tab 03/30/20 Unknown Rx Acetaminophen/Codeine [Tylenol 1 tab PO Q4HR PRN #12 tablet 09/19/20 Unknown Rx /Codeine # 3 tab] Amoxicillin [Trimox CAP] 500 mg PO Q8H #30 capsule 09/19/20 Unknown Rx methylPREDNISolone [Medrol 4MG 4 mg PO DAILY 6 Days #1 tab.ds.pk 09/19/20 Unknown Rx DOSEPAK (21 tabs)] Allergies Allergy/AdvReac Type Severity Reaction Status Date / Time No Known Allergies Allergy Unverified 07/13/19 17:21 ED Dental HPI - General Stated complaint: LEFT TOOTHACHE PAIN/PUSS COMING OUT Time Seen by Provider: 09/19/20 14:15 - Related Data Home Medications Medication Instructions Recorded Confirmed Last Taken levETIRAcetam [Keppra TAB] 1,000 mg PO QDAY 12/21/19 12/21/19 11/21/19 Previous Rx's Medication Instructions Recorded Last Taken Type Famotidine [Pepcid] 20 mg PO BID #30 tablet 07/06/19 Unknown Rx Potassium Chloride [Klor-Con 8] 8 meq PO QDAY #10 tablet 07/06/19 Unknown Rx levETIRAcetam [Keppra TAB] 750 mg PO BID #60 tablet 07/06/19 Unknown Rx oxyCODONE /ACETAMINOPHEN [Percocet 1 tab PO Q8H PRN #6 tablet 07/06/19 Unknown Rx 5/325 mg] Promethazine [Phenergan] 25 mg MI Q6HR PRN #20 supp.rect 07/07/19 Unknown Rx Famotidine [Pepcid] 40 mg PO QHS #10 tablet 07/12/19 Unknown Rx levETIRAcetam [Keppra TAB] 500 mg PO BID #60 tablet 07/12/19 Unknown Rx Famotidine [Pepcid] 20 mg PO BID #30 tablet 07/13/19 Unknown Rx levETIRAcetam [Keppra TAB] 500 mg PO BID #90 tablet 07/13/19 Unknown Rx Ciprofloxacin HCl [Ciprofloxacin 500 mg PO Q12HR 10 Days #20 tab 07/23/19 Unknown Rx TAB] Ondansetron [Zofran Odt] 4 mg PO Q6HR PRN #20 tab.rapdis 07/23/19 Unknown Rx metroNIDAZOLE [Flagyl] 500 mg PO Q12HR 10 Days #20 tab 07/23/19 Unknown Rx Promethazine [Phenergan TAB] 25 mg PO Q6HR PRN #20 tab 08/06/19 Unknown Rx Lansoprazole [Prevacid] 15 mg PO BID #30 cap 08/07/19 Unknown Rx Ondansetron [Zofran ODT TAB] 4 mg PO Q8HR #10 tab.rapdis 08/07/19 Unknown Rx traMADoL [Ultram 50 MG tab] 50 mg PO Q6HR PRN #10 tablet 08/07/19 Unknown Rx Dicyclomine [Bentyl] 20 mg PO QID #10 tablet 11/19/19 Unknown Rx Ondansetron [Zofran ODT TAB] 4 mg PO Q8HR PRN #14 tab.rapdis 11/19/19 Unknown Rx Dicyclomine [Bentyl] 20 mg PO QID #20 tablet 03/30/20 Unknown Rx Metoclopramide [Reglan] 10 mg PO TID PRN #20 tab 03/30/20 Unknown Rx Acetaminophen/Codeine [Tylenol 1 tab PO Q4HR PRN #12 tablet 09/19/20 Unknown Rx /Codeine # 3 tab] Amoxicillin [Trimox CAP] 500 mg PO Q8H #30 capsule 09/19/20 Unknown Rx methylPREDNISolone [Medrol 4MG 4 mg PO DAILY 6 Days #1 tab.ds.pk 09/19/20 Unknown Rx DOSEPAK (21 tabs)] Allergies Allergy/AdvReac Type Severity Reaction Status Date / Time No Known Allergies Allergy Unverified 07/13/19 17:21 ED Review of Systems ROS: Stated complaint: LEFT TOOTHACHE PAIN/PUSS COMING OUT Other details as noted in HPI Comment: All other systems reviewed and negative ENT: dental pain ED Past Medical Hx - Past Medical History Hx Hypertension: Yes Hx CVA: No Hx Heart Attack/AMI: No Hx Congestive Heart Failure: No Hx Diabetes: No Hx Deep Vein Thrombosis: No Hx Pulmonary Embolism: No Hx GERD: No Hx Liver Disease: No Hx Renal Disease: No Hx Sickle Cell Disease: No Hx Arthritis: No Hx Headaches / Migraines: No Hx Seizures: Yes Hx Kidney Stones: No Hx Psychiatric Treatment: No Hx Asthma: Yes Hx COPD: No Hx Tuberculosis: No Hx Dementia: No Hx HIV: No Additional medical history: cyclic vomiting syndrome - Surgical History Hx Coronary Stent: No Hx Open Heart Surgery: No Hx Pacemaker: No Hx Internal Defibrillator: No Hx Cholecystectomy: No Hx Appendectomy: No Hx Breast Surgery: No - Social History Smoking Status: Never Smoker Substance Use Type: Alcohol, Marijuana - Medications Home Medications: Home Medications Medication Instructions Recorded Confirmed Last Taken Type levETIRAcetam [Keppra TAB] 1,000 mg PO QDAY 07/05/19 07/05/19 06/05/19 History Famotidine [Pepcid] 20 mg PO BID #30 tablet 07/06/19 Unknown Rx Potassium Chloride [Klor-Con 8] 8 meq PO QDAY #10 tablet 07/06/19 Unknown Rx levETIRAcetam [Keppra TAB] 750 mg PO BID #60 tablet 07/06/19 Unknown Rx oxyCODONE /ACETAMINOPHEN [Percocet 1 tab PO Q8H PRN #6 tablet 07/06/19 Unknown Rx 5/325 mg] Promethazine [Phenergan] 25 mg MI Q6HR PRN #20 supp.rect 07/07/19 Unknown Rx Famotidine [Pepcid] 40 mg PO QHS #10 tablet 07/12/19 Unknown Rx levETIRAcetam [Keppra TAB] 500 mg PO BID #60 tablet 07/12/19 Unknown Rx Famotidine [Pepcid] 20 mg PO BID #30 tablet 07/13/19 Unknown Rx levETIRAcetam [Keppra TAB] 500 mg PO BID #90 tablet 07/13/19 Unknown Rx Ciprofloxacin HCl [Ciprofloxacin 500 mg PO Q12HR 10 Days #20 tab 07/23/19 Unknown Rx TAB] Ondansetron [Zofran Odt] 4 mg PO Q6HR PRN #20 tab.rapdis 07/23/19 Unknown Rx metroNIDAZOLE [Flagyl] 500 mg PO Q12HR 10 Days #20 tab 07/23/19 Unknown Rx Promethazine [Phenergan TAB] 25 mg PO Q6HR PRN #20 tab 08/06/19 Unknown Rx Lansoprazole [Prevacid] 15 mg PO BID #30 cap 08/07/19 Unknown Rx Ondansetron [Zofran ODT TAB] 4 mg PO Q8HR #10 tab.rapdis 08/07/19 Unknown Rx traMADoL [Ultram 50 MG tab] 50 mg PO Q6HR PRN #10 tablet 08/07/19 Unknown Rx Dicyclomine [Bentyl] 20 mg PO QID #10 tablet 11/19/19 Unknown Rx Ondansetron [Zofran ODT TAB] 4 mg PO Q8HR PRN #14 tab.rapdis 11/19/19 Unknown Rx Dicyclomine [Bentyl] 20 mg PO QID #20 tablet 03/30/20 Unknown Rx Metoclopramide [Reglan] 10 mg PO TID PRN #20 tab 03/30/20 Unknown Rx Acetaminophen/Codeine [Tylenol 1 tab PO Q4HR PRN #12 tablet 09/19/20 Unknown Rx /Codeine # 3 tab] Amoxicillin [Trimox CAP] 500 mg PO Q8H #30 capsule 09/19/20 Unknown Rx methylPREDNISolone [Medrol 4MG 4 mg PO DAILY 6 Days #1 tab.ds.pk 09/19/20 Unknown Rx DOSEPAK (21 tabs)] ED Physical Exam - General Limitations: No Limitations General appearance: alert, anxious, in distress (Patient appears uncomfortable, she appears to be in pain and she is anxious) - Head Head exam: Present: atraumatic, normocephalic, normal inspection - Eye Eye exam: Present: normal appearance, PERRL, EOMI Pupils: Present: normal accommodation - ENT ENT exam: Present: mucous membranes moist, TM's normal bilaterally - Expanded ENT Exam Expanded 1 - Fractured (Severe), Dental Tenderness (Severe), Other (Severe decay) - Neck Neck exam: Present: normal inspection, full ROM. Absent: meningismus, lymphadenopathy - Respiratory Respiratory exam: Present: normal lung sounds bilaterally. Absent: respiratory distress - Cardiovascular Cardiovascular Exam: Present: normal rhythm, tachycardia, normal heart sounds - Neurological Exam Neurological exam: Present: alert, oriented X3, CN II-XII intact - Psychiatric Psychiatric exam: Present: normal affect, anxious - Skin Skin exam: Present: intact ED Course Vital Signs 09/19/20 09/19/20 09/19/20 14:17 14:29 15:03 Temperature 97.7 F Pulse Rate 127 H Respiratory 16 18 18 Rate Blood Pressure 165/97 Blood Pressure [Left] O2 Sat by Pulse 98 Oximetry 09/19/20 09/19/20 15:04 17:12 Temperature Pulse Rate 99 H Respiratory 18 18 Rate Blood Pressure Blood Pressure 129/87 [Left] O2 Sat by Pulse 100 Oximetry ED Medical Decision Making - Lab Data Result diagrams: 09/19/20 15:37 09/19/20 15:37 - EKG Data -: EKG Interpreted by Mi EKG shows normal: sinus rhythm Rate: normal (97) - EKG Data Interpretation: no acute changes, normal EKG - Radiology Data Patient: SHAAN LIMON MR# : [id number] : 2000 Acct:[id number] Age/Sex: 19 / F ADM Date: 09/19/20 Loc: ED Attending Dr: Ordering Physician: MIRTHA GIRARD Date of Service: 09/19/20 Procedure(s): XR chest routine 2V Accession Number(s): [id number] cc: MIRTHA GIRARD Fluoro Time In Minutes: CHEST 2 VIEWS INDICATION: chest pain. COMPARISON: None FINDINGS: SUPPORT DEVICES: None. HEART: Within normal limits. LUNGS/PLEURA: No acute air space or interstitial disease. No pneumothorax. ADDITIONAL FINDINGS: None. IMPRESSION: 1. No acute findings. Signer Name: Maxwell Ceja MD Signed: 09/19/2020 4:59 PM Workstation Name: [id number] Transcribed By: JOSEFINA Dictated By: Maxwell Ceja MD Electronically Authenticated By: Maxwell Ceja MD Signed Date/Time: 09/19/201658 DD/ 58 TD/TT: - Medical Decision Making 1500: patient still crying and writhing in pain after the Tylenol 3. She states that the viscous lidocaine did not help her pain. Discussed with Dr. Day about doing a dental nerve block but he recommend just give IM injection for pain first. 1518: Just prior to getting IM morphine and toradol, nurse came to get me stating that patient is now complaining that she cannot move her left arm. She was also complaining of pain to her left chest, and axillary area. On re- evaluating patient noted be anxious and hyper ventilating and crying pain. She admits she does have hx of anxiety. Patient instructed that she has to calm down, and slow her breathing. Patient did have tenderness to palpation to the left upper chest wall, and axillary area and left lateral neck. Her pulses were equal bilaterally to to her upper extremities. No swelling noted to the upper extremities. She was tacky c ardiac, and she did have some coarse mild rhonchi but she does smoke. She has no calf tenderness or lower extremity swelling. After patient started to calm down, she was able to move her left arm again. After the morphine and the Toradol she became a little bit more relaxed and is now sleeping. Patient denies any history of drug use. She denies any past medical history. Basic labs added including EKG, chest x-ray and IV fluids. 1743: Labs reviewed and show nothing acute. EKG shows no STEMI, or other acute ischemic changes or significant dysrhythmia.. Chest x-ray normal. Patient still appears anxious but she reports some improvement of her pain. Repeat vital signs improved. She is not toxic or ill-appearing. Other than the anxiety she is mentally stable. She is neurologically intact with a normal gait in the ER. She has no SI or HI. No indication for any further work-up, or admission at this time. Discussed results with patient. Discussed treatment plan with patient. Recommend that she keeps her appointment with with the dentist. And also recommend that she continue taking her anxiety medications when she got home. Patient expressed understanding of instructions and agree with plan. Patient stable at this time for discharge. Critical care attestation.: If time is entered above; I have spent that time in minutes in the direct care o f this critically ill patient, excluding procedure time. ED Disposition Clinical Impression: Anxiety reaction, Pain due to dental caries Disposition: TO HOME OR SELFCARE Is pt being admited?: No Does the pt Need Aspirin: No Condition: Stable Instructions: Generalized Anxiety Disorder, Adult, Dental Caries, Pediatric, Tooth Injuries, [id number] Additional Instructions: Take the antibiotics and the pain medication as prescribed. you can keep your appointment with your dentist for October or you can also call another dentist given on list to see if you can get a sooner appointment. Return to ED if worse. Prescriptions: methylPREDNISolone [Medrol 4MG DOSEPAK (21 tabs)] 4 mg PO DAILY 6 Days #1 tab.ds.pk Amoxicillin [Trimox CAP] 500 mg PO Q8H #30 capsule Acetaminophen/Codeine [Tylenol /Codeine # 3 tab] 1 tab PO Q4HR PRN #12 tablet PRN Reason: Pain Referrals: PRIMARY CARE, [Primary Care Provider] - 3-5 Days Time of Disposition: 17:36
[2020-09-19] MEDS ORDERED: BUPIVACAINE/PF (0.25%) 2.5 MG/ML 30 ML VIAL INFILTRATI ONE (14:52)
[2020-09-19] MEDS ORDERED: KETOROLAC 60 MG/2 ML INJ IM ONE (14:59)
[2020-09-19] MEDS ORDERED: ONDANSETRON 4 MG ODT TAB PO ONE (14:59)
[2020-09-19] MEDS ORDERED: MORPHINE 4 MG/1 ML INJ IM ONE (14:59)
[2020-09-19] MEDS ORDERED: SODIUM CHLORIDE 0.9% 1000 ML 1,000 ML IV ONE (15:18)
[2020-09-19 15:53] LABS: Basophils # (Auto) 0.1 K/mm3 (0.0-0.1); Basophils % (Auto) 0.4 % (0.0-1.8); Eosinophils # (Auto) 0.1 K/mm3 (0.0-0.4); Eosinophils % (Auto) 0.9 % (0.0-4.3); Hematocrit 39.2 % (30.3-42.9); Lymphocytes # (Auto) 1.2 K/mm3 (1.2-5.4); Mean Corpuscular HGB Conc 33 % (30-34); Mean Corpuscular Volume 87 fl (79-97); Monocytes # (Auto) 0.6 K/mm3 (0.0-0.8); Monocytes % (Auto) 4.7 % (0.0-7.3); Platelet Count 376 K/mm3 (140-440); Red Blood Count 4.48 M/mm3 (3.65-5.03); Red Cell Distribution Width 14.9 % (13.2-15.2)
[2020-09-19 16:18] LABS: Alanine Aminotransferase 15 units/L (7-56); Albumin 4.1 g/dL (3.9-5); Blood Urea Nitrogen 6 mg/dL (7-17); Calcium 9.4 mg/dL (8.4-10.2); Hemolysis Index 27
[2020-09-19 16:20] LABS: BUN/Creatinine Ratio 9
--- NOTE | 2020-09-19 17:04 | XRay Report ---
CHEST 2 VIEWS INDICATION: chest pain. COMPARISON: None FINDINGS: SUPPORT DEVICES: None. HEART: Within normal limits. LUNGS/PLEURA: No acute air space or interstitial disease. No pneumothorax. ADDITIONAL FINDINGS: None. IMPRESSION: 1. No acute findings. Signer Name: Maxwell Ceja MD Signed: 09/19/2020 4:59 PM Workstation Name: [id number]
[2020-09-19 17:13] VITALS: BP 129/87
== END 2020-09-19 17:47 | disposition home or self-care (01) ==
LOC: ED 14:06
DX: K02.9 Dental caries, unspecified (principal); F41.1 Generalized anxiety disorder; F43.0 Acute stress reaction; I10 Essential (primary) hypertension; R56.9 Unspecified convulsions; J45.909 Unspecified asthma, uncomplicated; F12.10 Cannabis abuse, uncomplicated; Z79.2 Long term (current) use of antibiotics; Z79.899 Other long term (current) drug therapy
CPT/HCPCS: 36415; 71046; 80053; 84484; 84703; 85025; 93005; 96372; 99284; J1885; J2270; Q0162

== ENCOUNTER 2020-12-20 20:51 | Emergency (ER) | payer MEDICAID ==
[2020-12-20] MEDS ORDERED: levETIRAcetam 1000 MG/NS 0.75% 1,000 MG/100 ML BAG IV ONE (21:04)
--- NOTE | 2020-12-20 21:08 | Emergency Department Report ---
ED Seizure HPI - General Stated Complaint: SEIZURES Time Seen by Provider: 12/20/20 20:59 Source: patient, EMS Mode of arrival: Stretcher Limitations: Altered Mental Status - History of Present Illness Initial Comments: Chief complaint: Seizure HPI: This is a 19-year-old female with history of seizure disorder, GERD, cyclic vomiting syndrome who presents via EMS for reported seizure. Boyfriend informed EMS that she had 2 seizures. EMS witnessed for additional generalized tonic- clonic seizures. Patient received 5 mg Versed via EMS IV. Patient was recently transported to [facility] a few days ago for seizure. Patient is currently lethargic sedated. She is nodding head to to answer questions. Patient has had several ED visits at this hospital for evaluation and treatment of seizures. In 2019, patient was admitted to this hospital for status epilepticus. According to EMS blood sugar 138 MD Complaint: seizure -: Sudden, This afternoon Description of Episode: loss of consciousness, tonic-clonic movement Witnessed:: Yes Trauma: No Seizure History: known seizure disorder Place: home Possible Precipitating Event: other (Unknown medication compliance) - Related Data Home Medications Medication Instructions Recorded Confirmed Last Taken levETIRAcetam [Keppra TAB] 1,000 mg PO QDAY 07/05/19 07/05/19 06/05/19 Previous Rx's Medication Instructions Recorded Last Taken Type Famotidine [Pepcid] 20 mg PO BID #30 tablet 07/06/19 Unknown Rx Potassium Chloride [Klor-Con 8] 8 meq PO QDAY #10 tablet 07/06/19 Unknown Rx levETIRAcetam [Keppra TAB] 750 mg PO BID #60 tablet 07/06/19 Unknown Rx oxyCODONE /ACETAMINOPHEN [Percocet 1 tab PO Q8H PRN #6 tablet 07/06/19 Unknown Rx 5/325 mg] Promethazine [Phenergan] 25 mg MT Q6HR PRN #20 supp.rect 07/07/19 Unknown Rx Famotidine [Pepcid] 40 mg PO QHS #10 tablet 07/12/19 Unknown Rx levETIRAcetam [Keppra TAB] 500 mg PO BID #60 tablet 07/12/19 Unknown Rx Famotidine [Pepcid] 20 mg PO BID #30 tablet 07/13/19 Unknown Rx levETIRAcetam [Keppra TAB] 500 mg PO BID #90 tablet 07/13/19 Unknown Rx Ciprofloxacin HCl [Ciprofloxacin 500 mg PO Q12HR 10 Days #20 tab 07/23/19 Unknown Rx TAB] Ondansetron [Zofran Odt] 4 mg PO Q6HR PRN #20 tab.rapdis 07/23/19 Unknown Rx metroNIDAZOLE [Flagyl] 500 mg PO Q12HR 10 Days #20 tab 07/23/19 Unknown Rx Promethazine [Phenergan TAB] 25 mg PO Q6HR PRN #20 tab 08/06/19 Unknown Rx Lansoprazole [Prevacid] 15 mg PO BID #30 cap 08/07/19 Unknown Rx Ondansetron [Zofran ODT TAB] 4 mg PO Q8HR #10 tab.rapdis 08/07/19 Unknown Rx traMADoL [Ultram 50 MG tab] 50 mg PO Q6HR PRN #10 tablet 08/07/19 Unknown Rx Dicyclomine [Bentyl] 20 mg PO QID #10 tablet 11/19/19 Unknown Rx Ondansetron [Zofran ODT TAB] 4 mg PO Q8HR PRN #14 tab.rapdis 11/19/19 Unknown Rx Dicyclomine [Bentyl] 20 mg PO QID #20 tablet 03/30/20 Unknown Rx Metoclopramide [Reglan] 10 mg PO TID PRN #20 tab 03/30/20 Unknown Rx Acetaminophen/Codeine [Tylenol 1 tab PO Q4HR PRN #12 tablet 09/19/20 Unknown Rx /Codeine # 3 tab] Amoxicillin [Trimox CAP] 500 mg PO Q8H #30 capsule 09/19/20 Unknown Rx methylPREDNISolone [Medrol 4MG 4 mg PO DAILY 6 Days #1 tab.ds.pk 09/19/20 Unknown Rx DOSEPAK (21 tabs)] levETIRAcetam [Keppra TAB] 500 mg PO BID 90 Days #180 tablet 12/21/20 Unknown Rx Allergies Allergy/AdvReac Type Severity Reaction Status Date / Time No Known Allergies Allergy Unverified 07/13/19 17:21 ED Review of Systems ROS: Stated complaint: SEIZURES Other details as noted in HPI Comment: Unobtainable due to pts medical conditions (Sedated lethargic) ED Past Medical Hx - Past Medical History Previous Medical History?: Yes Hx Hypertension: Yes Hx CVA: No Hx Heart Attack/AMI: No Hx Congestive Heart Failure: No Hx Diabetes: No Hx Deep Vein Thrombosis: No Hx Pulmonary Embolism: No Hx GERD: No Hx Liver Disease: No Hx Renal Disease: No Hx Sickle Cell Disease: No Hx Arthritis: No Hx Headaches / Migraines: No Hx Seizures: Yes Hx Kidney Stones: No Hx Psychiatric Treatment: No Hx Asthma: Yes Hx COPD: No Hx Tuberculosis: No Hx Dementia: No Hx HIV: No Additional medical history: cyclic vomiting syndrome - Surgical History Past Surgical History?: No Hx Coronary Stent: No Hx Open Heart Surgery: No Hx Pacemaker: No Hx Internal Defibrillator: No Hx Cholecystectomy: No Hx Appendectomy: No Hx Breast Surgery: No - Social History Smoking Status: Never Smoker Substance Use Type: Alcohol, Marijuana - Medications Home Medications: Home Medications Medication Instructions Recorded Confirmed Last Taken Type levETIRAcetam [Keppra TAB] 1,000 mg PO QDAY 07/05/19 07/05/19 06/05/19 History Famotidine [Pepcid] 20 mg PO BID #30 tablet 07/06/19 Unknown Rx Potassium Chloride [Klor-Con 8] 8 meq PO QDAY #10 tablet 07/06/19 Unknown Rx levETIRAcetam [Keppra TAB] 750 mg PO BID #60 tablet 07/06/19 Unknown Rx oxyCODONE /ACETAMINOPHEN [Percocet 1 tab PO Q8H PRN #6 tablet 07/06/19 Unknown Rx 5/325 mg] Promethazine [Phenergan] 25 mg MT Q6HR PRN #20 supp.rect 07/07/19 Unknown Rx Famotidine [Pepcid] 40 mg PO QHS #10 tablet 07/12/19 Unknown Rx levETIRAcetam [Keppra TAB] 500 mg PO BID #60 tablet 07/12/19 Unknown Rx Famotidine [Pepcid] 20 mg PO BID #30 tablet 07/13/19 Unknown Rx levETIRAcetam [Keppra TAB] 500 mg PO BID #90 tablet 07/13/19 Unknown Rx Ciprofloxacin HCl [Ciprofloxacin 500 mg PO Q12HR 10 Days #20 tab 07/23/19 Unknown Rx TAB] Ondansetron [Zofran Odt] 4 mg PO Q6HR PRN #20 tab.rapdis 07/23/19 Unknown Rx metroNIDAZOLE [Flagyl] 500 mg PO Q12HR 10 Days #20 tab 07/23/19 Unknown Rx Promethazine [Phenergan TAB] 25 mg PO Q6HR PRN #20 tab 08/06/19 Unknown Rx Lansoprazole [Prevacid] 15 mg PO BID #30 cap 08/07/19 Unknown Rx Ondansetron [Zofran ODT TAB] 4 mg PO Q8HR #10 tab.rapdis 08/07/19 Unknown Rx traMADoL [Ultram 50 MG tab] 50 mg PO Q6HR PRN #10 tablet 08/07/19 Unknown Rx Dicyclomine [Bentyl] 20 mg PO QID #10 tablet 11/19/19 Unknown Rx Ondansetron [Zofran ODT TAB] 4 mg PO Q8HR PRN #14 tab.rapdis 11/19/19 Unknown Rx Dicyclomine [Bentyl] 20 mg PO QID #20 tablet 03/30/20 Unknown Rx Metoclopramide [Reglan] 10 mg PO TID PRN #20 tab 03/30/20 Unknown Rx Acetaminophen/Codeine [Tylenol 1 tab PO Q4HR PRN #12 tablet 09/19/20 Unknown Rx /Codeine # 3 tab] Amoxicillin [Trimox CAP] 500 mg PO Q8H #30 capsule 09/19/20 Unknown Rx methylPREDNISolone [Medrol 4MG 4 mg PO DAILY 6 Days #1 tab.ds.pk 09/19/20 Unknown Rx DOSEPAK (21 tabs)] levETIRAcetam [Keppra TAB] 500 mg PO BID 90 Days #180 tablet 12/21/20 Unknown Rx ED Physical Exam - General General appearance: in no apparent distress, obtunded, other (Protecting airway, purposeful movement, will make eye contact,) - Head Head exam: Present: atraumatic, normocephalic - Eye Eye exam: Present: normal appearance - ENT ENT exam: Present: mucous membranes moist - Neck Neck exam: Present: normal inspection, full ROM - Respiratory Respiratory exam: Present: normal lung sounds bilaterally. Absent: respiratory distress, wheezes, rales - Cardiovascular Cardiovascular Exam: Present: regular rate, normal rhythm, normal heart sounds. Absent: systolic murmur, diastolic murmur, rubs, gallop - GI/Abdominal GI/Abdominal exam: Present: soft. Absent: distended, tenderness, guarding, rebound - Extremities Exam Extremities exam: Present: normal inspection - Neurological Exam Neurological exam: Present: altered - Psychiatric Psychiatric exam: Present: flat affect - Skin Skin exam: Present: warm, dry, intact, normal color. Absent: rash ED Course Vital Signs 12/20/20 12/20/20 12/20/20 21:06 21:08 21:15 Temperature 98.4 F Pulse Rate 89 93 H 92 H Respiratory 16 16 17 Rate Blood Pressure 92/53 105/59 O2 Sat by Pulse 100 100 100 Oximetry 12/20/20 21:31 Temperature Pulse Rate 91 H Respiratory 17 Rate Blood Pressure 104/61 O2 Sat by Pulse 100 Oximetry ED Medical Decision Making - Medical Decision Making Breakthrough seizure, history of seizure disorder: Patient received Keppra load. She is awake alert GCS 15. She is ambulatory no difficulty. I have referred h er to neurologist. Also provided 90-day prescription of Keppra. Critical care attestation.: If time is entered above; I have spent that time in minutes in the direct care of this critically ill patient, excluding procedure time. ED Disposition Clinical Impression: Seizure Disposition: [id number] TO HOME OR SELFCARE Is pt being admited?: No Does the pt Need Aspirin: No Condition: Stable Instructions: Epilepsy, [id number], Seizure, Adult, [id number] Prescriptions: levETIRAcetam [Keppra TAB] 500 mg PO BID 90 Days #180 tablet Referrals: MIKAEL MATHIS MD [Referring] - 3-5 Days
[2020-12-21 01:57] VITALS: BP 93/50
== END 2020-12-21 01:58 | disposition home or self-care (01) ==
LOC: ED 20:51
DX: G40.909 Epilepsy, unspecified, not intractable, without status epilepticus (principal); I10 Essential (primary) hypertension; F12.90 Cannabis use, unspecified, uncomplicated; Z72.89 Other problems related to lifestyle; Z79.899 Other long term (current) drug therapy
CPT/HCPCS: 96374; 99283; J1953